=== PATIENT | female | born 1965 | race Caucasian/White ===

== ENCOUNTER 2017-03-08 10:19 | Emergency (ER) | payer BC ==
[~2017-03-08] VITALS: Ht 170.2 cm; Wt 69.0 kg
--- OUTSIDE RECORDS SUMMARY | ~2017-03-08 | XMS | Clinical Summary ---
Demographics + + + | Address | [address] | | | [place] [address] | + + + | Home Phone | | + + + | Preferred Language | Unknown | + + + | Marital Status | | + + + | Sikh Affiliation | Unknown | + + + | Race | White | + + + | Ethnic Group | Not or | + + + Author + + + | Author | [facility] | + + + | Organization | [facility] | + + + | Address | Unknown | + + + | Phone | Unavailable | + + + Support +------+ +---------+ + | Name | Relationship | Address | Phone | +------+ +---------+ + ECON | Unknown | | +------+ +---------+ + Care Team Providers + +------+-------+ | Care Civil Engineer Name | Role | Phone | + +------+-------+ | Ronald Alvarez MD | PP | tel | + +------+-------+ Source Comments BOO is fully live on both [facility] Ambulatory and [facility] InPatient.[facility] Allergies + + + + + + | Active Allergy | Reactions | Severity | Noted | Comments | | | | | Date | | + + + + + + | Triprolidine-Pseudoe | Unknown | | 08/14/19 | | | phedrine | | | 14 | | + + + + + + Current Medications + + +-------+---------+------+------+-------+ | Prescription | Sig. | Disp. | Refills | Star | End | Statu | | | | | | t | Date | s | | | | | | Date | | | + + +-------+---------+------+------+-------+ | LISINOPRIL 10 mg | Take 10 mg by mouth | | | 07/12 | | Activ | | oral tablet | two times daily. | | | 08/30 | | e | | | | | | 14 | | | + + +-------+---------+------+------+-------+ | CARVEDILOL 12.5 mg | Take 12.5 mg by | | | 07/12 | | Activ | | oral tablet | mouth two times | | | 05/02 | | e | | | daily. | | | 14 | | | + + +-------+---------+------+------+-------+ | VITAMIN D2 50,000 | Take by mouth twice | | | 07/11 | | Activ | | unit oral capsule | weekly (on Monday | | | 05/02 | | e | | | and Monday). | | | 14 | | | + + +-------+---------+------+------+-------+ | CYCLOBENZAPRINE 10 | Take 10 mg by mouth | | | 05/ | | Activ | | mg oral tablet | two times daily. | | | 05/02 | | e | | | | | | 14 | | | + + +-------+---------+------+------+-------+ | NORCO 5-325 mg | Take 1 tablet by | | | 06/12 | | Activ | | oral tablet | mouth twice daily as | | | 11/30 | | e | | | needed. | | | 14 | | | + + +-------+---------+------+------+-------+ | aspirin chewable | Take 81 mg by mouth | | | | | Activ | | 81 mg oral | once daily. | | | | | e | | tablet,chewable | | | | | | | + + +-------+---------+------+------+-------+ | cetirizine 10 mg | Take 10 mg by mouth | | | | | Activ | | oral tablet | once daily. | | | | | e | + + +-------+---------+------+------+-------+ | hydrOXYzine | Take 1 capsule by | | | 06/0 | | Activ | | pamoate 50 mg oral | mouth once daily. | | | 3/20 | | e | | capsule | | | | 14 | | | + + +-------+---------+------+------+-------+ | spironolactone 25 | Take 25 mg by mouth | | | | | Activ | | mg oral tablet | once daily. | | | | | e | + + +-------+---------+------+------+-------+ | levonorgestrel | 1 each by | | | | | Activ | | (MIRENA) [...] | | | | | + + +-------+---------+------+------+-------+ Active Problems + + + | Problem | Noted Date | + + + | Adrenal nodule (HCC) | 11/05/2013 | + + + + [...] + +---------+ + | Alcohol Use | Drinks/We | oz/Week | Comments | | | ek | | | + + +---------+ + | Yes | 7 | 3.5 | | | | Standard | | | | | drinks or | | | | | | | | | | equivalen | | | | | t | | | + + +---------+ + + + + | Sex Assigned at | Date Recorded | | | | + + + | Not on file | | + + + Last Filed Vital Signs + + + + | Vital Sign | Reading | Time Taken | + + + + | Blood Pressure | 124/76 | 02/11/2014 2:04 PM PST | + + + + | Pulse | 75 | 02/11/2014 2:04 PM PST | + + + + | Temperature | - | - | + + + + | Respiratory Rate | 12 | 11/05/2013 3:17 PM PDT | + + + + | Oxygen Saturation | - | - | + + + + | Inhaled Oxygen | - | - | | Concentration | | | + + + + | Weight | 72.6 kg (160 lb) | 02/11/2014 2:04 PM PST | + + + + | Height | 170.2 cm (5' 7") | 11/05/2013 3:17 PM PDT | + + + + | Body Mass Index | 25.06 | 02/11/2014 2:04 PM PST | + + + + Plan of Treatment + + + + + | Health Maintenance | Due Date | Last Done | Comments | + + + + + | INFLUENZA VACCINE | | | | | (FLU SHOT) | 7 | | | + + + + + Results Not on filefrom Last 3 Months
--- OUTSIDE RECORDS SUMMARY | ~2017-03-08 | XMS | Clinical Summary ---
Demographics + + + | Address | [address] | | | [place] [address] | + + + | Home Phone | | + + + | Preferred Language | Unknown | + + + | Marital Status | | + + + | Taoist Affiliation | Unknown | + + + | Race | White | + + + | Ethnic Group | Not or | + + + Author + + + | Author | [facility] | + + + | Organization | [facility] | + + + | Address | Unknown | + + + | Phone | Unavailable | + + + Support +------+ +---------+ + | Name | Relationship | Address | Phone | +------+ +---------+ + ECON | Unknown | | +------+ +---------+ + Care Team Providers + +------+-------+ | Care Medical Technicians Name | Role | Phone | + +------+-------+ | Ronald Alvarez MD | PP | tel | + +------+-------+ Source Comments BOO is fully live on both [facility] Ambulatory and [facility] InPatient.[facility] Allergies + + + + [...]
[~2017-03-08 10:19] MED LIST: ASPIRIN EC81 MG PO; CARVEDILOL12.5 MG PO; FLEXERIL10 MG PO; LISINOPRIL10 MG PO; NORCO 5-325 TA1 EACH PO; VISTARIL50 MG PO; VITAMIN D; ZITHROMAX250 MG PO; ZOFRAN ODT4 MG PO; ZOFRAN4 MG PO
== END 2017-03-08 10:34 | disposition home or self-care (01) ==
LOC: ED 10:19
DX: M25.511 Pain in right shoulder (principal)

== ENCOUNTER 2017-07-27 13:44 | Emergency (ER) | payer BC ==
[~2017-07-27] VITALS: Ht 170.2 cm; Wt 69.0 kg
== END 2017-07-27 14:04 | disposition home or self-care (01) ==
LOC: ED 13:44
DX: Z00.8 Encounter for other general examination (principal)

== ENCOUNTER 2019-09-14 09:50 | Emergency (ER) | payer OTHER ==
[~2019-09-14] VITALS: Ht 170.2 cm; Wt 65.3 kg
--- OUTSIDE RECORDS SUMMARY | ~2019-09-14 | XMS | Encounter Summary ---
Demographics + + + | Address | [address] | | | [place] [address] | + + + | Home Phone | | + + + | Preferred Language | Unknown | + + + | Marital Status | | + + + | Yazdanism Affiliation | Unknown | + + + | Race | White | + + + | Ethnic Group | Not or | + + + Author + + + | Author | [facility] | + + + | Organization | [facility] | + + + | Address | Unknown | + + + | Phone | Unavailable | + + + Support + + +---------+ + | Name | Relationship | Address | Phone | + + +---------+ + | Arcadio Jordan | ECON | Unknown | | + + +---------+ + Care Team Providers + +------+ + | Care Coding Compliance Manager Name | Role | Phone | + +------+ + | Ronald Alvarez MD | PCP | | + +------+ + Encounter Details +--------+ + + + + | Date | Type | Department | Care Team | Description | +--------+ + + + + | 09/03/ | Results | [facility] | Carter Campos MD | | | 2013 | Only | [facility] | [address] | | | | | [facility] | [address] [place], | | | | | [address] | [place] [address] | | | | | [address] | [phone] | | | | | Physician's | | | | | | Pavilion, 1st floor | | | | | | [place], [place] | | | | | | [address] | | | | | | [phone] | | | +--------+ + + + + Social History + + + +--------+------+ | Tobacco Use | Types | Packs/Day | Years | Date | | | | | Used | | + + + +--------+------+ | Current Every Day | Cigarettes | 0.5 | | | | Smoker | | | | | + + + +--------+------+ + + +---------+ + | Alcohol Use | Drinks/Week | oz/Week | Comments | + + +---------+ + | Yes | 7 Standard drinks | 5.8 | | | | or equivalent | | | + + +---------+ + + + + | Sex Assigned at | Date Recorded | | | | + + + | Not on file | | + + + + + + + | Job Start Date | Occupation | Industry | + + + + | Not on file | Not on file | Not on file | + + + + + + + + | Travel History | Travel Start | Travel End | + + + + + + | No recent travel history available. | + + documented as of this encounter Plan of Treatment Not on filedocumented as of this encounter Procedures + +--------+ + + + | Procedure Name | Priori | Date/Time | Associated Diagnosis | Comments | | | ty | | | | + +--------+ + + + | CT ABDOMEN WO IV | Routin | 09/03/2013 | | Results for this | | CONTRAST | e | 3:06 PM | | procedure are in the | | | | PDT | | results section. | + +--------+ + + + documented in this encounter Results CT ABDOMEN WO IV CONTRAST (09/03/2013 3:06 PM PDT) + + + + + + | Component | Value | Ref Range | Performed | Pathologist | | | | | At | Signature | + + + + + + | CT ABDOMEN | EXAM: CT of the | | | | | WO CONTRAST | abdomen WITHOUT IV | | | | | | contrast. Coronal and | | | | | | sagittal reformatswere | | | | | | reviewed. HISTORY: | | | | | | Evaluate for adrenal | | | | | | nodules COMPARISON: None | | | | | | available. TECHNIQUE: | | | | | | CT of the abdomen | | | | | | WITHOUT IV contrast. | | | | | | Coronal and | | | | | | sagittalreformats were | | | | | | reviewed. FINDINGS: LACK | | | | | | OF INTRAVENOUS CONTRAST | | | | | | DECREASES SENSITIVITY | | | | | | FOR DETECTION OF | | | | | | VASCULARAND PARENCHYMAL | | | | | | PATHOLOGY. LOWER THORAX: | | | | | | Unremarkable. LIVER: | | | | | | Unremarkable.BILIARY: | | | | | | Unremarkable.SPLEEN: | | | | | | Unremarkable.PANCREAS: | | | | | | Unremarkable. ADRENALS: | | | | | | The left adrenal gland | | | | | | demonstrates a medial | | | | | | limb nodule thatmeasures | | | | | | 1.9 x 1.6 cm and | | | | | | attenuates at minus 10.8 | | | | | | Hounsfield units. The | | | | | | rightadrenal gland is | | | | | | normal in | | | | | | appearance.KIDNEYS/URETE | | | | | | RS: Unremarkable. GI | | | | | | TRACT: Visualized | | | | | | portions are | | | | | | unremarkable.PERITONEUM: | | | | | | No free air or | | | | | | fluid.LYMPH NODES: No | | | | | | lymphadenopathy.VESSELS: | | | | | | Unremarkable. BONES: No | | | | | | suspicious bony | | | | | | lesions. IMPRESSION: The | | | | | | left adrenal gland | | | | | | demonstrates a 1.9 x 1.6 | | | | | | cm medial limb nodule | | | | | | thatattenuates at minus | | | | | | 10 hounsfield units. 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 | | | | | | Morphologically normal | | | | | | right adrenal gland. | | | | | | Attending Radiologists: | | | | | | BENJAMIN MYERS, | | | | | | MDAuthor: BRENNAN SANTAMARIA MD | | | | | | I have personally viewed | | | | | | this procedure/exam, | | | | | | reviewed this report, | | | | | | and madechanges to it | | | | | | where appropriate. | | | | | | Final/Electronically | | | | | | signed / BENJAMIN Lucero | | | | | | [place] 09/03/2013 16:41 | | | | | | PM Pending final | | | | | | approval / BRENNAN SANTAMARIA | | | | | | 09/03/2013 16:10 PM | | | | | | Preliminary / BRENNAN | | | | | | HINA 09/03/2013 15:19 PM | | | | | | | | | | + + + + + + + + | Specimen | + + | | + + + +---------+ + + | Performing | Address | City/State/Zipcode | Phone Number | | Organization | | | | + +---------+ + + | [facility] DEPARTMENT | | | | | RADIOLOGY | | | | + +---------+ + + documented in this encounter Visit Diagnoses Not on filedocumented in this encounter"
--- OUTSIDE RECORDS SUMMARY | ~2019-09-14 | XMS | Encounter Summary ---
Demographics + + + | Address | [address] | | | [place] [address] | + + + | Home Phone | | + + + | Preferred Language | Unknown | + + + | Marital Status | | + + + | Mandaen Affiliation | Unknown | + + + [...] Team Providers + +------+ + | Care Cargo Inspector Name | Role | Phone | + +------+ + | Ronald Alvarez MD | PCP | | + +------+ + Encounter Details +--------+ + + + + | Date | Type | Department | Care Team | Description | +--------+ + + + + | 08/28/ | Document-Sc | UNKNOWN DEPARTMENT | Unknown . | | | 2013 | anned | [address] | | | | | | [address] | | | | | | [place], [place] | | | | | | [address] | | | +--------+ + + + [...] | + +--------+ + + + | OUTSIDE CARDIOLOGY | | 08/28/2013 | | Results for this | | | | 12:00 AM | | procedure are in the | | | | PDT | | results section. | + +--------+ + + + | RADIOLOGY | | 08/28/2013 | | Results for this | | | | 12:00 AM | | procedure are in the | | | | PDT | | results section. | + +--------+ + + + | LAB REPORTS | | 07/10/2013 | | Results for this | | | | 12:00 AM | | procedure are in the | | | | PDT | | results section. | + +--------+ + + + documented in this encounter Results OUTSIDE CARDIOLOGY (08/28/2013 12:00 AM PDT) + + + | Narrative | Performed At | + + + | | | | | | + + + + + | Procedure Note | + + | Chiquita, Faculty - 08/28/2013 3:31 PM PDT | + + RADIOLOGY (08/28/2013 12:00 AM PDT) + + + | Narrative | Performed At | + + + | | | | | | + + + + + | Procedure Note | + + | Yisel Porras - 08/28/2013 3:31 PM PDT | + + LAB REPORTS (07/10/2013 12:00 AM PDT) + + + | Narrative | Performed At | + + + | | | | | | + + + + + | Procedure Note | + + | Yisel Porras - 08/29/2013 8:26 AM PDT | + + documented in this encounter Visit Diagnoses Not on filedocumented in this encounter"
--- OUTSIDE RECORDS SUMMARY | ~2019-09-14 | XMS | Encounter Summary ---
Demographics + + + | Address | [address] | | | [place] [address] | + + + | Home Phone | | + + + | Preferred Language | Unknown | + + + | Marital Status | | + + + | Baptist Affiliation | Unknown | + + + | Race | White | + + + | Ethnic Group | Not or | + + + Author + + + | Author | [facility] | + + + | Organization | [facility] | + + + | Address | Unknown | + + + | Phone | Unavailable | + + + Support + + +---------+ + | Name | Relationship | Address | Phone | + + +---------+ + | Arcadio Jordan | ECON | Unknown | | + + +---------+ + Care Team Providers + +------+ + | Care Inventory Control Manager Name | Role | Phone | + +------+ + | Ronald Alvarez MD | PCP | | + +------+ + Encounter Details +--------+ + + + + | Date | Type | Department | Care Team | Description | +--------+ + + + + | 09/05/ | [facility] | [facility] | Carter Campos MD | RE: Lab draw | | 2013 | Encounter | [facility] | [address] | | | | | [facility] | [address] [place], | | | | | [address] | [place] [address] | | | | | [address] | [phone] | | | | | Physician's | | | | | | Pavilion, 1st floor | | | | | | [place], [place] | | | | | | [address] | | | | | | [phone] | | | +--------+ + + + [...] Not on filedocumented as of this encounter Visit Diagnoses Not on filedocumented in this encounter"
--- OUTSIDE RECORDS SUMMARY | ~2019-09-14 | XMS | Encounter Summary ---
Demographics + + + | Address | [address] | | | [place] [address] | + + + | Home Phone | | + + + | Preferred Language | Unknown | + + + | Marital Status | | + + + | Adventist Affiliation | Unknown | + + + | Race | White | + + + | Ethnic Group | Not or | + + + Author + + + | Author | [facility] | + + + | Organization | [facility] | + + + | Address | Unknown | + + + | Phone | Unavailable | + + + Support + + +---------+ + | Name | Relationship | Address | Phone | + + +---------+ + | Arcadio Jordan | ECON | Unknown | | + + +---------+ + Care Team Providers + +------+ + | Care Smearer Name | Role | Phone | + +------+ + | Ronald Alvarez MD | PCP | | + +------+ + Encounter Details +--------+ + + + + | Date | Type | Department | Care Team | Description | +--------+ + + + + | 08/13/ | [facility] | [facility] | Carter Campos MD | RE: New pt | | 2013 | Encounter | [facility] | [address] | | | | | Center at [facility] | [address] [place], | | | | | [address] | [place] [address] | | | | | [address] | [phone] | | | | | Physician's | | | | | | Pavilion, 1st floor | | | | | | [place], [place] | | | | | | [address] | | | | | | [phone] | | | +--------+ + + + [...]
--- OUTSIDE RECORDS SUMMARY | ~2019-09-14 | XMS | Encounter Summary ---
Demographics + + + | Address | [address] | | | [place] [address] | + + + | Home Phone | | + + + | Preferred Language | Unknown | + + + | Marital Status | | + + + | Rastafari Affiliation | Unknown | + + + | Race | White | + + + | Ethnic Group | Not or | + + + Author + + + | Author | [facility] | + + + | Organization | [facility] | + + + | Address | Unknown | + + + | Phone | Unavailable | + + + Support + + +---------+ + | Name | Relationship | Address | Phone | + + +---------+ + | Arcadio Jordan | ECON | Unknown | | + + +---------+ + Care Team Providers + +------+ + | Care Rn Access Name | Role | Phone | + +------+ + | Ronald Alvarez MD | PCP | | + +------+ + Encounter Details +--------+ + + + + | Date | Type | Department | Care Team | Description | +--------+ + + + + | 10/19/ | [facility]cia | [facility] | Carter Campos MD | RE:labs | | 2013 | Encounter | [facility] | [address] | | | | | Center at [facility] | [address] [place], | | | | | [address] | [place] [address] | | | | | [address] | [phone] | | | | | Physician's | | | | | | Pavilion, 1st floor | | | | | | [place], [place] | | | | | | [address] | | | | | | [phone] | | | +--------+ + + + [...]
--- OUTSIDE RECORDS SUMMARY | ~2019-09-14 | XMS | Encounter Summary ---
Demographics + + + | Address | [address] | | | [place] [address] | + + + | Home Phone | | + + + | Preferred Language | Unknown | + + + | Marital Status | | + + + | Congregation Affiliation | Unknown | + + + | Race | White | + + + | Ethnic Group | Not or | + + + Author + + + | Author | [facility] | + + + | Organization | [facility] | + + + | Address | Unknown | + + + | Phone | Unavailable | + + + Support + + +---------+ + | Name | Relationship | Address | Phone | + + +---------+ + | Arcadio Jordan | ECON | Unknown | | + + +---------+ + Care Team Providers + +------+ + | Care Lead Furnace Operator Name | Role | Phone | + +------+ + | Ronald Alvarez MD | PCP | | + +------+ + Reason for Visit + + + | Reason | Comments | + + + | Hypokalemia | | + + + | New patient | | | consultation | | + + + Intake Referral (Urgent) +--------+--------+ + + + + | Status | Reason | Specialty | Diagnoses / | Referred By | Referred To | | | | | Procedures | Contact | Contact | +--------+--------+ + + + + | Closed | | Endocrinology | Diagnoses | Sitz, | 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 | MD Trevor | [address] | | | | | | [place] | [address] | | | | | | INTERNAL | Physician's | | | | | | MEDICINE | Pavilion, | | | | | | [address] | 1st floor | | | | | | [address] | [place], [place] | | | | | | [address] | [address] | | | | | | [place], | Phone: | | | | | | [place] [address] | [phone] | | | | | | Phone: | Fax: | | | | | | [phone] | [phone] | | | | | | Fax: | | | | | | | [phone] | | +--------+--------+ + + + + Encounter Details +--------+---------+ + + + | Date | Type | Department | Care Team | Description | +--------+---------+ + + + | 08/13/ | Office | Souleymane Goldman | Andres, Carter, MD | Hypokalemia (Primary | | 2014 | Visit | [facility] | [address] | Dx) | | | | [facility] | [address] [place], | | | | | [address] | [place] [address] | | | | | [address] | [phone] | | | | | Physician's | | | | | | Pavilion, 1st floor | | | | | | [place], [place] | | | | | | [address] | | | | | | [phone] | | | +--------+---------+ + + + Social History + + + +--------+------+ | Tobacco Use | Types | Packs/Day | Years | Date | | | | | Used | | + + + +--------+------+ | Current Every Day | Cigarettes | 0.5 | | | | Smoker | | | | | + + + +--------+------+ + + | Tobacco Cessation: Ready to Quit: No; Counseling Given: Yes | + + + + +---------+ + | Alcohol Use [...] + + documented as of this encounter Last Filed Vital Signs + + + + + | Vital Sign | Reading | Time Taken | Comments | + + + + + | Blood Pressure | 118/76 | 08/13/2013 10:46 AM | | | | | PDT | | + + + + + | Pulse | 70 | 08/13/2013 10:46 AM | | | | | PDT | | + + + + + | Temperature | - | - | | + + + + + | Respiratory Rate | 12 | 08/13/2013 10:46 AM | | | | | PDT | | + + + + + | Oxygen Saturation | - | - | | + + + + + | Inhaled Oxygen | - | - | | | Concentration | | | | + + + + + | Weight | 72.7 kg (160 lb 3.2 | 08/13/2013 10:46 AM | | | | oz) | PDT | | + + + + + | Height | 170.2 cm (5' 7") | 08/13/2013 10:46 AM | | | | | PDT | | + + + + + | Body Mass Index | 25.09 | 08/13/2013 10:46 AM | | | | | PDT | | + + + + + documented in this encounter Patient Instructions Patient Instructions Carter Campos MD - 08/13/2013 10:22 AM PDTGetting ready to quit? Here's how to get started. o Most smokers know that quitting improves your health. But did you know that when you ana t, you will likely: Reduce your chances of getting sick from smoking. Have more energy and breathe easier Heal more easily from surgery, injuries, and infections. Reduce your chance of a heart attack, stroke, or cancer. Reduce your chances of a second heart attack (if you've already had one). Give your baby a healthier start in life if you are . Help the people (and pets!) you live with be healthier. Breathing in smoke can cause a sthma and other health problems, especially in children. Have more money to spend. Stop the hassles about finding a place to smoke and worrying about running out of cigare ttes. o Most smokers have seriously tried to quit, usually more than once. But, when you cut back or stop smoking, withdrawal symptoms from nicotine can make you feel not your normal jana f. Quitters can feel anxious, restless, sad or depressed, frustrated, or even angry. With drawal can make you hungrier and make it harder to sleep and think clearly. Most withdrawal symptoms go away after 3-6 weeks, although cravings can last longer. o For some smokers, quitting means first figuring out why you want to quit and then finding the best ways to overcome withdrawal. Others may just decide to quit right now and want to know what to do. The experts recommend the [place] to Quitting. o Call the [place] Tobacco Quitline at: 2-110-QUIT NOW or visit the website www.hotelsmap.com.org. A Quitline specialist will talk to you and help you decide the best way to quit. Th e Quitline may also be able to send you FREE medications. o For help online: Centers for Disease Control website at www.cdc.gov/tobacco or [facility] website for live on-line assistance for smokers at www.smokefree.gov [place] to Quitting These four keys can help withdrawal and help you successfully quit. 1. Set a specific date to quit. 2. Take the stop smoking medication your doctor recommends. 3. Get help and support from friends, family, and your health professional. 4. Learn how to stay quit. [place] to Quitting Malik 1: SET A QUIT DATE Choose a day that works for you. What's better: Monday morning? Monday morning? Sp ecial days like annivers or birth? Maybe today is the day! Consider giving yourself a few days to a couple of weeks to get ready. Try changing bran ds and cutting back. If you still smoke in your car or house, think about only smoking outsi de until your quit day. Be prepared for your quit day: o Be determined to succeed & stay busy! o Plan to spend time with non-smokers. o Collect a few things to have with you to help with urges. Quitters have tried sugarless g um and mints, red hot candy, water bottle, carrot sticks, a list of the reasons for quitting , pictures of family members and pets. Choose (or invent!) what you think will help. The day before your quit day, get rid of all your cigarettes, lighters and ashtrays. Jayesh an your car and your home to help get ready. Malik 2: TAKE A MEDICATION o Take the medication your doctor recommends. Stop smoking medications can double or tripl e your chances of success. o Medications can help you with physical, nicotine withdrawal symptoms so you can feel more like your normal self while learning not to smoke. IMPORTANT: Be sure to use enough medication and use it as long as recommended. People who smoke a lot sometimes use two medications together. But, some quitters stop using the medica tion as soon as they feel better. This can be too soon! Your doctor can help you decide. Malik 3: GET HELP AND SUPPORT o Studies show that getting support helps increase your chances of quitting. o Ask your friends and family for help, but be specific. Know that some people may be helpf ul and others may not. You want to make quitting easier, not more stressful! o Find other quitters who can help. Try joining a class, getting individual coaching, or ch ecking out internet quit sites. o Call the [place] Tobacco Quitline at 6-452-Quit Now. Malik 4: LEARN HOW TO STAY QUIT o Always take it one day at a time. o Try avoiding smokers and smoking areas for the first weeks. Seeing and smelling smoke can be a big trigger and cause you to start up again. o Stick with it even if you slip up. o Remind yourself (even if you don't feel that way) that you will feel better and quitting will get easier. o Help stay motivated by rewarding yourself. Commonly Asked Questions Why do I get really uncomfortable when I try to quit? These are normal feelings. Nicotine is a drug in tobacco that affects your mind and body by causing chemical changes in your brain. Most smokers know that smoking (nicotine) can hel p you feel relaxed and calm and also keep you alert and help you concentrate. It can also re duce your appetite and delay eating. Your body gets used to having lots of nicotine over yea rs of smoking. When you suddenly cut way down or stop, your body reacts. Withdrawal starts within a couple of hours after your last cigarette. What can I expect from withdrawal? When smokers quit they often feel irritated, anxious, tired, sad or down or have a hard ti me thinking clearly. Many can't sleep as well, feel hungrier, and many gain some weight. No wonder it is hard to quit! Is there a way to quit without withdrawal? Most smokers have withdrawal when they stop. Medications help, but there isn't a painless way to quit. Some smokers have said: You just have to make up your mind to stop, or Just get past the physical craving and you'll be alright, or Don't beat yourself up i f quitting is harder for you than for your friends And, all are right! It can be hard to keep your mental attitude positive about quitting when you are feeling withdrawal. Following the [place] to Quitting can help smokers make withdrawal easier and be successf ul. I am trying to get away from nicotine! Why would I use nicotine patches, gum, or the lozen ge? This is a common question. Nicotine is an addictive drug. But it isn't nicotine that cause s cancer and the other serious diseases. It is all the other chemicals in tobacco and in the smoke that cause so much harm. When you follow a program with the patch, gum, or lozenge y ou gradually decrease the amount of nicotine you are getting. Your body has more time to adj ust and you get rid of all of the other chemicals from the tobacco and the smoke that cause harm. You can also try non-nicotine medications for quitting including bupropion (Zyban/Well butrin) or varenicline (Chantix). Can I really quit? YES! Quitting takes commitment and patience> it also takes staying with it even if it is hard to do. Think of past quit attempts as practice, not failures. Forty years ago more than 42% of Americans smoked. Now there are more ex-smokers than smokers. You can quit if you ar e willing to stick with it! Developed by: [facility] Smoking [facility]essation [facility] [email or web address]/smokingcessation 11/14/06 documented in this encounter Progress Notes Carter Campos MD - 08/13/2013 11:59 AM PDTI saw and evaluated the patient. I agree with the findings and plan of care as documented in the residents/fellows note. Carter Campos MD Endocrinology, Diabetes and Clinical Nutrition [address] [facility] [address] Darshan Schaefer MD - 08/13 9:49 AM PDT Endocrine Clinic New Consult Referring Provider: Ronald Alvarez MD [facility] [address] [address] Reason for Visit: new patient eval for episodes of weakness Subjective: patient describes episodes that started About 11 years ago, was starting to hav e weakness and trouble breathing. Multiple trips to ER. Eventually had echo with 12% EF in dicating Left heart failure (idiopathic) in . EF now good with meds. However, episod es still continue. Has these episodes about 5 times per year. Had one in January. But recently had one last week. Cramping, weakness, SOB, decreased exercise tolerance, diffuse body pains, nausea, g ets flushing. No hypertension. Maybe some symptoms of light headedness. Trouble with leg strength, cannot walk up a flight of stairs. Can see leg cramps. Taking daily norco and da guero flexeril. Episodes last for a number of days and peak in the middle. When going to ER, potassium is sometimes low sometimes normal, sometimes Mg is low too. Gets better when get s IV fluids with potassium in it. During these episodes has to sleep 10-12 hours. Thinks h eat might be trigger as well as stress. Attacks have been worse in the last 6-7 years. Thi s episode has salt craving with it. Has taken potassium supplements in the past, but then K started getting high so she stopped. At baseline, she is in good health. Daily chest pain but uses norco daily. Otherwise acti ve, and walks 2-3 miles per day. Stress, [place] Sleeps 5 hours a night. Has a d aughter. Schizophrenic brother. 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 ROS: In addition to above, positive for: nasal congestion Remainder of 13 point ROS has been reviewed and scanned into chart Other PMH: Past Medical History Diagnosis Date Heart failure 2007 idiopathic Family History Problem Relation MS Mother Cancer Grandmother History Social History Marital Status: Spouse Name: N/A Number of Children: N/A Years of Education: N/A Occupational History Not on file. Social History Main Topics Smoking status: Current Every Day Smoker -- 0.50 packs/day Types: Cigarettes Smokeless tobacco: Not on file Alcohol Use: 3.5 oz/week 7 drink(s) per week Drug Use: No Sexually Active: Not on file Other Topics Concern Not on file Social History Narrative No narrative on file aspirin chewable 81 mg oral tablet,chewable, Take 81 mg by mouth once daily. CARVEDILOL 12.5 mg oral tablet, Take 12.5 mg by mouth two times daily. cetirizine 10 mg oral tablet, Take 10 mg by mouth once daily. CYCLOBENZAPRINE 10 mg oral tablet, Take 10 mg by mouth two times daily. hydrOXYzine pamoate 50 mg oral capsule, Take 50 mg by mouth every four hours as needed. LISINOPRIL 10 mg oral tablet, Take 10 mg by mouth two times daily. NORCO 5-325 mg oral tablet, Take 1 tablet by mouth twice daily as needed. SPIRONOLACTONE 25 mg oral tablet, Take 25 mg by mouth once daily. VITAMIN D2 50,000 unit oral capsule, Take by mouth twice weekly (on Monday and Monday). Allergies Allergen Reactions Actifed (Triprolidine-Pseudoephedrine) Unknown Physical Exam: Filed Vitals 08/13/2013 11:55 AM Height: 1.702 m (5' 7") Weight: 72.666 kg (160 lb 3.2 oz) BP: 118/76 Pulse: 70 Resp: 12 BMI: 25.08 kg/(m^2) General Appearance: NAD Eyes: EOMI, no exophthalmos, no lid lag Thyroid: symmetric, non-tender, normal in size, no palpable nodules Cardiovascular: RRR, normal S1 & S2, no m/r/g Respiratory: cta B/L, no w/r/r Abdominal: soft, NT, normal BS, no organomegaly Extremities: no edema Skin: no rashes on exposed skin Neurologic: no tremor, patellar and ankle reflexes normal, strength 5-/5 in LE b/l Psych: pleasant and intelligent Data: Outside labs reviewed and scanned into chart. Normal K, normal Mg. Normal 24hr urinary co rtisol. No aldosterone, no thyroid labs. Assessment: unknown symptoms of weakness episodes that are periodic a few times per year. The episodes got a little better when heart failure was treated, but still persist. Sometimes associate d with electrolyte abnormalities. Occasionally with low K or Mg, and sometimes better with K replacement. Could be inappropriate bodily handling of K. Will check renal K handling wi th serum and urine values. Also consider hypophosphatemia. Her adrenal glands have not bee n fully evaluated. It is possible that hyperaldosteronism could link the hypokalemia and he art failure. However, never had HTN (although on anti-HTN meds for heart failure). She is currently on spironolactone, so will have to interpret labs carefully in that regard. Plan: -labs today: PTH, TSH, D, phos, Mg, CMP, TTKG, renin, jeremy -based on results, will consider retesting while holding lauren for 6 weeks -based on results, will consider adrenal imaging -tobacco cessation counseling Darshan Silva MD Endocrinology Fellow, pgr [phone] This patient has been staffed with Dr. Campos who agrees with above assessment and plan. documented in this encou nter Plan of Treatment Not on filedocumented as of this encounter Results ALDOSTERONE, SERUM (08/13/2013 10:48 AM PDT) + + + + + + | Component | Value | Ref Range | Performed | Pathologist | | | | | At | Signature | + + + + + + | ALDOSTERONE | 40.0Comment: | ng/dL | [facility] | | | SERUM | INTERPRETIVE | | REG UNIV | | | | INFORMATION: | | PTH - [facility] | | | | Aldosterone, Serum | | | | | | Reference intervals for | | | | | | age 15 and older: | | | | | | Upright ......... 4.0 | | | | | | - 31.0 ng/dL Supine | | | | | | .......... Less than | | | | | | or equal to 16.0 ng/dL | | | | | | Unspecified ..... Less | | | | | | than or equal to 31.0 | | | | | | ng/dL Normal serum | | | | | | levels of aldosterone | | | | | | are dependent on | | | | | | thesodium intake and | | | | | | whether the patient is | | | | | | upright or supine.High | | | | | | sodium intake will tend | | | | | | to suppress serum | | | | | | aldosterone,whereas low | | | | | | sodium intake will | | | | | | elevate serum | | | | | | aldosterone.The | | | | | | reference intervals for | | | | | | serum aldosterone are | | | | | | based onnormal sodium | | | | | | intake. Access complete | | | | | | set of age- and/or | | | | | | gender-specificreference | | | | | | intervals for this test | | | | | | in the [facility] | | | | | | LaboratoryTest Directory | | | | | | ([email or web address]).Performed | | | | | | by [facility] | | | | | | [facility],[address] [facility] | | | | | | [place], [facility] [place] [address] | | | | | | [phone]. | | | | | | Fei sotelo, | | | | | | , Lab. Director | | | | + + + + + + + + | Specimen | + + | Blood - Blood | + + + + + + + | Performing | Address | City/State/Zipcode | Phone Number | | Organization | | | | + + + + + | [facility] | [address] | [place], [place] | | | UNIV P[facility] | | [address] | | + + + + + RENIN, PLASMA (08/13/2013 10:48 AM PDT) + + + + + + | Component | Value | Ref Range | Performed | Pathologist | | | | | At | Signature | + + + + + + | RENIN | 60.0Comment: Specimen | ng/mL/hr | [facility] | | | PLASMA | diluted and results | | REG UNIV | | | | confirmed.INTERPRETIVE | | PTH - [facility] | | | | INFORMATION: Renin | | | | | | Activity Adult, Normal | | | | | | sodium diet: Supine | | | | | | ................. | | | | | | 0.2-1.6 ng/mL/hr | | | | | | Upright | | | | | | ................ 0.5-4.0 | | | | | | ng/mL/hr Children, | | | | | | Normal sodium diet, | | | | | | Supine: [place] (1-7 | | | | | | days) ..... 2.0-35.0 | | | | | | ng/mL/hr Cord blood | | | | | | ............. 4.0-32.0 | | | | | | ng/mL/hr 1-12 mos | | | | | | ............... 2.4-37.0 | | | | | | ng/mL/hr 13 mos-3 yrs | | | | | | ........... 1.7-11.2 | | | | | | ng/mL/hr 4-5 yrs | | | | | | ................ 1.0- | | | | | | 6.5 ng/mL/hr 6-10 yrs | | | | | | ............... 0.5- 5.9 | | | | | | ng/mL/hr 11-15 yrs | | | | | | .............. 0.5- 3.3 | | | | | | ng/mL/hr Children, | | | | | | normal sodium diet, | | | | | | Upright: 0-3 yrs | | | | | | ................ Not | | | | | | Available 4-5 yrs | | | | | | ................ Less | | | | | | than or equal to 15 | | | | | | ng/mL/hr 6-10 yrs | | | | | | ............... Less | | | | | | than or equal to 17 | | | | | | ng/mL/hr 11-15 yrs | | | | | | .............. Less than | | | | | | or equal to 16 ng/mL/hr | | | | | | Plasma renin activity | | | | | | measures enzyme ability | | | | | | to | | | | | | convertangiotensinogen | | | | | | to angiotensin I and is | | | | | | limited by | | | | | | theavailability of | | | | | | angiotensinogen. Plasma | | | | | | renin activity isnot an | | | | | | accurate indicator of | | | | | | enzyme activity | | | | | | whenangiotensinogen is | | | | | | decreased.Performed by | | | | | | [facility],[address] | | | | | | [address], [facility] [place] | | | | | | [address] | | | | | | [phone]. | | | | | | Fei sotelo, | | | | | | , Lab. Director | | | | + + + + + + + + | Specimen | + + | Blood - Blood | + + + + + + + | Performing | Address | City/State/Zipcode | Phone Number | | Organization | | | | + + + + + | [facility] | [address] | [place], [place] | | | UN[facility] | | [address] | | + + + + + POTASSIUM TOTAL, URINE (08/13/2013 10:48 AM PDT) + +--------+ + + + | Component | Value | Ref Range | Performed | Pathologist | | | | | At | Signature | + +--------+ + + + | POTASSIUM | 33 | mmol/L | [facility] | | | CONC UR | | | LABORATORY | | | | | | SERVICES, | | | | | | CORE | | + +--------+ + + + | URINE | Random | | [facility] | | | INTERVAL | | | LABORATORY | | | | | | SERVICES, | | | | | | CORE | | + +--------+ + + + | URINE | Spot | | [facility] | | | VOLUME | | | LABORATORY | | | | | | SERVICES, | | | | | | CORE | | + +--------+ + + + + + | Specimen | + + | Urine - Urine | + + + + + | Narrative | Performed At | + + + | Normal values based on 24 hour collection interval. Patient | [facility] | | results are calculated from actual collection interval and volume. | LABORATORY | | | [facility] | + + + + + + + + | Performing | Address | City/State/Zipcode | Phone Number | | Organization | | | | + + + + + | [facility] | [address] | [place] [address] | | | SERVICES, PAT[place] | [address] | | | + + + + + OSMOLALITY, URINE SPOT (08/13/2013 10:48 AM PDT) + +-------+ + + + | Component | Value | Ref Range | Performed | Pathologist | | | | | At | Signature | + +-------+ + + + | OSMOLALITY | 286 | mOsm/Kg H2O | [facility] | | | URINE | | | LABORATORY | | | | | | SERVICES, | | | | | | CORE | | + +-------+ + + + + + | Specimen | + + | Urine - Urine | + + + + + | Narrative | Performed At | + + + | Reference Ranges: Random Urine: | [facility] | | 50-1200 mOm/kg H20 24 Hr., average fluid intake: 300-900 | LABORATORY | | mOm/kg H20 After 12 Hr. fluid restriction: >850 mOm/kg H20 | [facility] | + + + + + + + + | Performing | Address | City/State/Zipcode | Phone Number | | Organization | | | | + + + + + | [facility] | [address] | [place] [address] | | | [facility] [place] | [address] | | | + + + + + OSMOLALITY, PLASMA (08/13/2013 10:48 AM PDT) + +-------+ + + + | Component | Value | Ref Range | Performed | Pathologist | | | | | At | Signature | + +-------+ + + + | OSMOLALITY, | 286 | 275 - 295 | [facility] | | | MEASURED | | mOsm/kg H2O | LABORATORY | | | | | | SERVICES, | | | | | | CORE | | + +-------+ + + + + + | Specimen | + + | Blood - Blood | + + + + + + + | Performing | Address | City/State/Zipcode | Phone Number | | Organization | | | | + + + + + | [facility] | [address] | [place] [address] | | | SERVICES, CORE | [address] | | | + + + + + COMPLETE METABOLIC SET (NA,K,CL,CO2,BUN,CREAT,GLUC,CA,AST,ALT,BILI TOTAL,ALK PHOS,ALB,PROT TOTAL) (08/13/2013 10:48 AM PDT) + + + + + + | Component | Value | Ref Range | Performed | Pathologist | | | | | At | Signature | + + + + + + | GLUCOSE, | 91 | 60 - 99 mg/dL | [facility] | | | PLASMA | | | LABORATORY | | | (LAB) | | | SERVICES, | | | | | | CORE | | + + + + + + | BUN, PLASMA | 15 | 6 - 20 mg/dL | [facility] | | | (LAB) | | | LABORATORY | | | | | | SERVICES, | | | | | | CORE | | + + + + + + | CREATININE | 0.59 (L) | 0.60 - 1.10 | [facility] | | | PLASMA | | mg/dL | LABORATORY | | | (LAB) | | | SERVICES, | | | | | | CORE | | + + + + + + | EGFR | >60 | >60 mL/min | [facility] | | | - | | | LABORATORY | | | [place] | | | SERVICES, | | | | | | CORE | | + + + + + + | EGFR NON | >60 | >60 mL/min | [facility] | | | -[place] | | | LABORATORY | | | [place] | | | SERVICES, | | | | | | CORE | | + + + + + + | SODIUM, | 136 | 136 - 145 | [facility] | | | PLASMA | | mmol/L | LABORATORY | | | (LAB) | | | SERVICES, | | | | | | CORE | | + + + + + + | POTASSIUM, | 4.1 | 3.4 - 5.0 | [facility] | | | PLASMA | | mmol/L | LABORATORY | | | (LAB) | | | SERVICES, | | | | | | CORE | | + + + + + + | CHLORIDE, | 104 | 97 - 108 mmol/L | [facility] | | | PLASMA | | | LABORATORY | | | (LAB) | | | SERVICES, | | | | | | CORE | | + + + + + + | TOTAL CO2, | 22 | 21 - 32 mmol/L | [facility] | | | PLASMA | | | LABORATORY | | | (LAB) | | | SERVICES, | | | | | | CORE | | + + + + + + | CALCIUM, | 9.4 | 8.6 - 10.2 | [facility] | | | PLASMA | | mg/dL | LABORATORY | | | (LAB) | | | SERVICES, | | | | | | CORE | | + + + + + + | BILIRUBIN | 0.5 | 0.3 - 1.2 mg/dL | [facility] | | | TOTAL | | | LABORATORY | | | | | | SERVICES, | | | | | | CORE | | + + + + + + | TOTAL | 7.7 | 6.4 - 8.2 g/dL | [facility] | | | PROTEIN, | | | LABORATORY | | | PLASMA | | | SERVICES, | | | (LAB) | | | CORE | | + + + + + + | ALBUMIN, | 4.0 | 3.5 - 4.7 g/dL | [facility] | | | PLASMA | | | LABORATORY | | | (LAB) | | | SERVICES, | | | | | | CORE | | + + + + + + | ALK PHOS | 57 | 42 - 98 U/L | [facility] | | | | | | LABORATORY | | | | | | SERVICES, | | | | | | CORE | | + + + + + + | AST(SGOT) | 16 | 15 - 41 U/L | [facility] | | | | | | LABORATORY | | | | | | SERVICES, | | | | | | CORE | | + + + + + + | ALT (SGPT) | 27 | 12 - 60 U/L | [facility] | | | | | | LABORATORY | | | | | | SERVICES, | | | | | | CORE | | + + + + + + | ANION | 10 | 4 - 11 mmol/L | [facility] | | | GAP(ALB | | | LABORATORY | | | CORRECTED) | | | SERVICES, | | | | | | CORE | | + + + + + + | POTASSIUM | No Hemo | | [facility] | | | CMNT | | | LABORATORY | | | | | | SERVICES, | | | | | | CORE | | + + + + + + | BILI T CMNT | No Hemo | | [facility] | | | | | | LABORATORY | | | | | | SERVICES, | | | | | | CORE | | + + + + + + | AST CMNT | No Hemo | | [facility] | | | | | | LABORATORY | | | | | | SERVICES, | | | | | | CORE | | + + + + + + | ANION GAP | 10 | mmol/L | [facility] | | | | | | LABORATORY | | | | | | SERVICES, | | | | | | CORE | | + + + + + + + + | Specimen | + + | Blood | + + + + + | Narrative | Performed At | + + + | GFR is estimated using the MDRD equation recommended by the | [facility] | | National Kidney Disease Education Program. Estimated GFR | LABORATORY | | Interpretive Information: <60 mL/min/1.73 sq m | ANGI, CORE | | Chronic Kidney Disease <15 mL/min/1.73 sq m | | | Kidney Failure Estimated GFR greater that 60 mL/min/1.73 sq m is of | | | limited clinical value. The MDRD equation is not valid in the | | | following situations: - Patients under 18 years of age - Severe | | | malnutrition or obesity - Vegetarian diet - Rapidly changing kidney | | | function | | + + + + + + + + | Performing | Address | City/State/Zipcode | Phone Number | | Organization | | | | + + + + + | [facility] | [address] | [place] [address] | | | SERVICES, CORE | [address] | | | + + + + + MAGNESIUM, PLASMA (08/13/2013 10:48 AM PDT) + +---------+ + + + | Component | Value | Ref Range | Performed | Pathologist | | | | | At | Signature | + +---------+ + + + | MAGNESIUM,P | 1.7 (L) | 1.8 - 2.5 mg/dL | [facility] | | | LASMA | | | LABORATORY | | | | | | SERVICES, | | | | | | CORE | | + +---------+ + + + + + | Specimen | + + | Blood | + + + + + + + | Performing | Address | City/State/Zipcode | Phone Number | | Organization | | | | + + + + + | [facility] | [address] | [place] [address] | | | SERVICES, CORE | [address] | | | + + + + + PHOSPHORUS, PLASMA (08/13/2013 10:48 AM PDT) + +-------+ + + + | Component | Value | Ref Range | Performed | Pathologist | | | | | At | Signature | + +-------+ + + + | PHOSPHORUS, | 3.7 | 2.4 - 4.7 mg/dL | [facility] | | | PLASMA | | | LABORATORY | | | (LAB) | | | SERVICES, | | | | | | CORE | | + +-------+ + + + + + | Specimen | + + | Blood | + + + + + + + | Performing | Address | City/State/Zipcode | Phone Number | | Organization | | | | + + + + + | [facility] | [address] | [place] [address] | | | SERVICES, CORE | [address] | | | + + + + + VITAMIN D, 25-HYDROXY, SERUM (08/13/2013 10:48 AM PDT) + +-------+ + + + | Component | Value | Ref Range | Performed | Pathologist | | | | | At | Signature | + +-------+ + + + | VITAMIN D | 46.8 | 30 - 80 ng/mL | [facility] | | | 25 HYDROXY | | | LABORATORY | | | | | | SERVICES, | | | | | | SPECIAL IMM | | | | | | + COAG | | + +-------+ + + + + + | Specimen | + + | Blood | + + + + + | Narrative | Performed At | + + + | REFERENCE INTERVAL: Vitamin D, 25-Hydroxy 0-17years: | [facility] | | Deficiency: less than 20 ng/mL Optimum level: | LABORATORY | | greater than or equal to 20 ng/mL* | SERVICES, | | *(Davis CL et al. Pediatrics 2008; 122:1128-38.) 18 | SPECIAL IMM + | | years and older: Deficiency: less than 20 | COAG | | ng/mL Insufficiency: 20-29 ng/mL | | | Optimum Level: 30-80 ng/mL High: | | | 81-150 ng/ml Toxic: Greater than | | | 150 ng/mL This assay accurately quantifies the sum of Vitamin D3 | | | 25-hydroxy and Vitamin D2, 25-hydroxy. Reference range | | | change effective 10/04/2012. | | + + + + + + + + | Performing | Address | City/State/Zipcode | Phone Number | | Organization | | | | + + + + + | [facility] | [address] | [place] [address] | | | SERVICES, SPECIAL | [address] | | | | IMM + COAG | | | | + + + + + TSH (08/13/2013 10:48 AM PDT) + +-------+ + + + | Component | Value | Ref Range | Performed | Pathologist | | | | | At | Signature | + +-------+ + + + | TSH | 2.36 | 0.44 - 4.75 | [facility] | | | | | mIU/L | LABORATORY | | | | | | SERVICES, | | | | | | CORE | | + +-------+ + + + + + | Specimen | + + | Blood | + + + + + | Narrative | Performed At | + + + | TSH reference ranges are influenced by a variety of environmental | [facility] | | influences, age, gender and ethnicity. The supplied reference limits | LABORATORY | | are based on published values utilizing a similar TSH assay, and | ANGI, PATRIC | | should be interpreted with caution. | | + + + + + + + + | Performing | Address | City/State/Zipcode | Phone Number | | Organization | | | | + + + + + | [facility] | [address] | [place] [address] | | | PATRIC WH[place]LEY | [address] | | | + + + + + PTH, SERUM (08/13/2013 10:48 AM PDT) + +-------+ + + + | Component | Value | Ref Range | Performed | Pathologist | | | | | At | Signature | + +-------+ + + + | PTH, SERUM | 9 (L) | 15 - 75 pg/mL | [facility] | | | | | [facility] | | | | | | [place] | | + +-------+ + + + + + | Specimen | + + | Blood | + + + + + + + | Performing | Address | City/State/Zipcode | Phone Number | | Organization | | | | + + + + + | [facility] | [address] | [place] [address] | | | [place] | | | | + + + + + documented in this encounter Visit Diagnoses + + | Diagnosis | + + | Hypokalemia - Primary Hypopotassemia | + + documented in this encounter
--- OUTSIDE RECORDS SUMMARY | ~2019-09-14 | XMS | Encounter Summary ---
Demographics + + + | Address | [address] | | | [place] [address] | + + + | Home Phone | | + + + | Preferred Language | Unknown | + + + | Marital Status | | + + + | Buddhism Affiliation | Unknown | + + + | Race | White | + + + | Ethnic Group | Not or | + + + Author + + + | Author | [facility] | + + + | Organization | [facility] | + + + | Address | Unknown | + + + | Phone | Unavailable | + + + Support + + +---------+ + | Name | Relationship | Address | Phone | + + +---------+ + | Arcadio Jordan | ECON | Unknown | | + + +---------+ + Care Team Providers + +------+ + | Care Leather Goods I Assembler Name | Role | Phone | + +------+ + | Ronald Alvarez MD | PCP | | + +------+ + Reason for Referral Consultation (Routine) +--------+--------+ + + + + | Status | Reason | Specialty | Diagnoses / | Referred By | Referred To | | | | | Procedures | Contact | Contact | +--------+--------+ + + + + | Closed | | Neurology | Diagnoses | Andres, | Peggy General | | | | | Leg | MD Carter | [address] | | | | | weakness | [address] | [place]i [place] | | | | | Procedures | [facility] | Mailcode: | | | | | CONSULT TO | Rd | [address] | | | | | NEUROLOGY | [place], [place] | for Health | | | | | | [address] | and Healing, | | | | | | Phone: | [facility], | | | | | | [phone] | 8th Floor | | | | | | Fax: | [place], [place] | | | | | | [phone] | [address] | | | | | | | Phone: | | | | | | | [phone] | | | | | | | Fax: | | | | | | | [phone] | +--------+--------+ + + + + Encounter Details +--------+ + + + + | Date | Type | Department | Care Team | Description | +--------+ + + + + | 01/09/ | [facility] | Souleymane Goldman | Carter Campos MD | RE: next step | | 2013 | Encounter | [facility] | [address] | | | | | [facility] | [address] [place], | | | | | [address] | [place] [address] | | | | | [address] | [phone] | | | | | Physician's | | | | | | Pavilion, 1st floor | | | | | | [place], [place] | | | | | | [address] | | | | | | [phone] | | | +--------+ + + + [...] as of this encounter Plan of Treatment + +------+--------+ + + | Name | Type | Priori | Associated Diagnoses | Order Schedule | | | | ty | | | + +------+--------+ + + | METANEPHRINES, URINE | Lab | Routin | Adrenal nodule | Ordered: 01/09/2014 | | | | e | (HCC) | | + +------+--------+ + + documented as of this encounter Visit Diagnoses + + | Diagnosis | + + | Adrenal nodule (HCC) - Primary Other specified disorders of adrenal glands | + + | Leg weakness Other musculoskeletal symptoms referable to limbs | + + documented in this encounter"
--- OUTSIDE RECORDS SUMMARY | ~2019-09-14 | XMS | Encounter Summary ---
Demographics + + + | Address | [address] | | | [place] [address] | + + + | Home Phone | | + + + | Preferred Language | Unknown | + + + | Marital Status | | + + + | Mu-Ism Affiliation | Unknown | + + + | Race | White | + + + | Ethnic Group | Not or | + + + Author + + + | Author | [facility] | + + + | Organization | [facility] | + + + | Address | Unknown | + + + | Phone | Unavailable | + + + Support + + +---------+ + | Name | Relationship | Address | Phone | + + +---------+ + | Arcadio Jordan | ECON | Unknown | | + + +---------+ + Care Team Providers + +------+ + | Care Metalsmith Name | Role | Phone | + +------+ + | Ronald Alvarez MD | PCP | | + +------+ + Encounter Details +--------+ + + + + | Date | Type | Department | Care Team | Description | +--------+ + + + + | 02/18/ | [facility] | Souleymane Goldman | Carter Campos MD | RE: Thank you the | | 2013 | Encounter | [facility] | [address] | referral | | | | [facility] | [address] [place], | | | | | [address] | [place] [address] | | | | | [address] | [phone] | | | | | Physician's | | | | | | Pavilion, 1st floor | | | | | | [place], [place] | | | | | | [address] | | | | | | [phone] | | | +--------+ + + + [...]
--- OUTSIDE RECORDS SUMMARY | ~2019-09-14 | XMS | Encounter Summary ---
Demographics + + + | Address | [address] | | | [place] [address] | + + + | Home Phone | | + + + | Preferred Language | Unknown | + + + | Marital Status | | + + + | Anabaptist Affiliation | Unknown | + + + | Race | White | + + + | Ethnic Group | Not or | + + + Author + + + | Author | [facility] | + + + | Organization | [facility] | + + + | Address | Unknown | + + + | Phone | Unavailable | + + + Support + + +---------+ + | Name | Relationship | Address | Phone | + + +---------+ + | Arcadio Jordan | ECON | Unknown | | + + +---------+ + Care Team Providers + +------+ + | Care Field Pipe Lines Supervisor Name | Role | Phone | + +------+ + | Ronald Alvarez MD | PCP | | + +------+ + Encounter Details +--------+ + + + + | Date | Type | Department | Care Team | Description | +--------+ + + + + | 01/28/ | Abstract | Neurology at | Clinic, Neurology | | | 2013 | | [facility] & | | | | | | Healing [address] | | | | | | Sheri Mailcode: CH8C | | | | | | [facility] | | | | | | and Healing, | | | | | | Building | | | | | | [place], [place] | | | | | | [address] | | | | | | [phone] | | | +--------+ + + + [...]
--- OUTSIDE RECORDS SUMMARY | ~2019-09-14 | XMS | Encounter Summary ---
Demographics + + + | Address | [address] | | | [place] [address] | + + + | Home Phone | | + + + | Preferred Language | Unknown | + + + | Marital Status | | + + + | Religion Affiliation | Unknown | + + + | Race | White | + + + | Ethnic Group | Not or | + + + Author + + + | Author | [facility] | + + + | Organization | [facility] | + + + | Address | Unknown | + + + | Phone | Unavailable | + + + Support + + +---------+ + | Name | Relationship | Address | Phone | + + +---------+ + | Arcadio Jordan | ECON | Unknown | | + + +---------+ + Care Team Providers + +------+ + | Care Brass Pourer Name | Role | Phone | + +------+ + | Ronald Alvarez MD | PCP | | + +------+ + Reason for Referral Diagnostic Testing (Routine) +--------+--------+ + + + + | Status | Reason | Specialty | Diagnoses / | Referred By | Referred To | | | | | Procedures | Contact | Contact | +--------+--------+ + + + + | Closed | | Radiology | Diagnoses | Andres, | [address] | | | | | Hypokalemia | MD Carter | [address] | | | | | Procedures | [address] | | | | | CT ABDOMEN | [place] | [address] | | | | | & PELVIS WO | Rd | [facility], | | | | | IV CONTRAST | [place], [place] | 10th Floor | | | | | AL CT ABD | [address] | [facility] [place] | | | | | & PELVIS W/O | Phone: | [address] | | | | | CONTRAST | [phone] | Phone: | | | | | | Fax: | [phone] | | | | | | [phone] | Fax: | | | | | | | [phone] | +--------+--------+ + + + + Encounter Details +--------+ + + + + | Date | Type | Department | Care Team | Description | +--------+ + + + + | 08/15/ | MyChart | Souleymane Goldman | Carter Campos MD | RE:labs | | 2013 | Encounter | [facility] | [address] | | | | | [facility] at [facility] | [address] [place], | | | | | [address] | [place] [address] | | | | | [address] | [phone] | | | | | Physician's | | | | | | [place], [address] [place] [address] | | | | | | [place], [place] | | | | | | [address] | | | | | | [phone] | | | +--------+ + + + [...] filedocumented as of this encounter Visit Diagnoses + + | Diagnosis | + + | Hypokalemia - Primary Hypopotassemia | + + documented in this encounter"
--- OUTSIDE RECORDS SUMMARY | ~2019-09-14 | XMS | Encounter Summary ---
Demographics + + + | Address | [address] | | | [place] [address] | + + + | Home Phone | | + + + | Preferred Language | Unknown | + + + | Marital Status | | + + + | Gnosticist Affiliation | Unknown | + + + | Race | White | + + + | Ethnic Group | Not or | + + + Author + + + | Author | [facility] | + + + | Organization | [facility] | + + + | Address | Unknown | + + + | Phone | Unavailable | + + + Support + + +---------+ + | Name | Relationship | Address | Phone | + + +---------+ + | Arcadio Jordan | ECON | Unknown | | + + +---------+ + Care Team Providers + +------+ + | Care Inspector Packer Glass Container Name | Role | Phone | + +------+ + | Ronald Alvarez MD | PCP | | + +------+ + Reason for Visit + + + | Reason | Comments | + + + | Adrenal Mass | | + + + Intake Referral (Urgent) +--------+--------+ + + + + | Status | Reason | Specialty | Diagnoses / | Referred By | Referred To | | | | | Procedures | Contact | Contact | +--------+--------+ + + + + | Closed | | Endocrinology | Diagnoses | Kim, | 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 | MD Trevor | [address] | | | | | | [address] | [address] | | | | | | INTERNAL | Physician's | | | | | | MEDICINE | Pavilion, | | | | | | [address] | 1st floor | | | | | | [address] | [place], [place] | | | | | | [address] | [address] | | | | | | [place], | Phone: | | | | | | [place] [address] | [phone] | | | | | | Phone: | Fax: | | | | | | [phone] | [phone] | | | | | | Fax: | | | | | | | [phone] | | +--------+--------+ + + + + Encounter Details +--------+---------+ + + + | Date | Type | Department | Care Team | Description | +--------+---------+ + + + | 11/05/ | Office | Souleymane Goldman | Carter Campos MD | Adrenal nodule (HCC) | | 2013 | Visit | [facility] | [address] | (Primary Dx) | | | | [facility] | [place], | | | | | [address] | [place] [address] | | | | | [address] | [phone] | | | | | Physician's | | | | | | [address], 1st floor | | | | | | [place], [place] | | | | | | [address] | | | | | | [phone] | | | +--------+---------+ + + + [...] Cessation: Ready to Quit: No; Counseling Given: No | + + + + +---------+ + [...] + + + | Blood Pressure | - | - | | + + + + + | Pulse | - | - | | + + + + + | Temperature | - | - | | + + + + + | Respiratory Rate | 12 | 11/05/2013 3:17 PM | | | | | PDT | | + + + + + | Oxygen Saturation | - | - | | + + + + + | Inhaled Oxygen | - | - | | | Concentration | | | | + + + + + | Weight | 73.6 kg (162 lb 4.8 | 11/05/2013 3:17 PM | | | | oz) | PDT | | + + + + + | Height | 170.2 cm (5' 7") | 11/05/2013 3:17 PM | | | | | PDT | | + + + + + | Body Mass Index | 25.42 | 11/05/2013 3:17 PM | | | | | PDT | | + + + + + documented in this encounter Progress Notes Carter Campos MD - 11/05/2013 3:18 PM [facility] Pt returns to discuss final workup of her adrenal nodule. She does not have primary hyperal dosteronism but can resume her spironolactone as it is beneficial for her hypokalemia and CH F. A CT showed a left 1.9 cm adrenal nodule and this should be assessed for Cushings: A) get 1 mg overnight dex suppression test B) midnight salivary cortisol testing The patient was provided with external order slips. The patient understands that they are s olely responsible in making sure the results are communicated to the ordering provider, no r eminders will be provided. Will also get metanephrines and random ACTH level today. The time I spent with the patient was 25 minutes of which greater than 50% was spent in one on one counseling. documented in this encou nter Plan of Treatment Not on filedocumented as of this encounter Procedures + +--------+ + + + | Procedure Name | Priori | Date/Time | Associated Diagnosis | Comments | | | ty | | | | + +--------+ + + + | CORTISOL, SERUM | Routin | 11/21/2013 | Adrenal nodule | Results for this | | | e | 8:10 AM | (HCC) | procedure are in the | | | | PDT | | results section. | + +--------+ + + + documented in this encounter Results CORTISOL, SERUM (11/21/2013 8:10 AM PDT) + + + + + + | Component | Value | Ref Range | Performed | Pathologist | | | | | At | Signature | + + + + + + | CORTISOL, | 1.3Comment: 1 mg | 1.8 ug/dl | [facility] | | | TOTAL SERUM | overnight DEX | | LAB | | + + + + + + + + | Specimen | + + | Blood - Blood | + + + + + + + | Performing | Address | City/State/Zipcode | Phone Number | | Organization | | | | + + + + + | [facility] | [address] | [place], [place] | | | | [place] | [address] | | + + + + + | [facility] | [address] | [place], [place] | | | | [facility] | [address] | | + + + + + CORTISOL, SERUM (11/05/2013 3:36 PM PDT) + +---------+ + + + | Component | Value | Ref Range | Performed | Pathologist | | | | | At | Signature | + +---------+ + + + | CORTISOL, | 5.2 (L) | 7.0 - 23.0 | [facility] | | | TOTAL SERUM | | mcg/dL | [facility] | | | | | [place] | | + +---------+ + + + + + | Specimen | + + | Blood - Blood | + + + + + + + | Performing | Address | City/State/Zipcode | Phone Number | | Organization | | | | + + + + + | [facility] | [address] | [place] [address] | | | [place] | | | | + + + + + ACTH, PLASMA (11/05/2013 3:36 PM PDT) + +-------+ + + + | Component | Value | Ref Range | Performed | Pathologist | | | | | At | Signature | + +-------+ + + + | ACTH,PLASMA | 5 | <=45 pg/mL | [facility] | | | [...] + | [facility] | [address] | [place] [address] | | | [place] | | | | + + + + + METANEPHRINES, PLASMA (11/05/2013 3:36 PM PDT) + + + + + + | Component | Value | Ref Range | Performed | Pathologist | | | | | At | Signature | + + + + + + | METANEPHRIN | 0.25 | 0.00 - 0.49 | [facility] | | | ES, PLASMA | | nmol/L | REG UNIV | | | | | | PTH - INTFC | | + + + + + + | NORMETANEPH | 1.20 (H) | 0.00 - 0.89 | [facility] | | | RINES, | | nmol/L | REG UNIV | | | PLASMA | | | PTH - INTFC | | + + + + + + | INTERPRETAT | See NoteComment: | | [facility] | | | ION | INTERPRETIVE | | REG UNIV | | | | INFORMATION: | | PTH - INTFC | | | | Metanephrines, Plasma | | | | | | (Free) This test is | | | | | | useful in the detection | | | | | | of pheochromocytoma, | | | | | | arare neuroendocrine | | | | | | tumor. The majority of | | | | | | patients | | | | | | withpheochromocytoma | | | | | | have a plasma | | | | | | normetanephrineconcentra | | | | | | tion in excess of 2.2 | | | | | | nmol/L and/or a | | | | | | metanephrineconcentratio | | | | | | n in excess of 1.1 | | | | | | nmol/L. | | | | | | Increasedconcentrations | | | | | | of these analytes serve | | | | | | as confirmation | | | | | | fordiagnosis. Patients | | | | | | with essential | | | | | | hypertension and | | | | | | plasmaconcentrations of | | | | | | normetanephrine below | | | | | | 0.9 nmol/L and | | | | | | ametanephrine | | | | | | concentration below 0.5 | | | | | | nmol/L, can beexcluded | | | | | | from further testing. If | | | | | | clinical | | | | | | suspicionremains, repeat | | | | | | testing or testing for | | | | | | metanephrines in a24-hr. | | | | | | urine specimen should | | | | | | be considered. See | | | | | | Compliance Statement B: | | | | | | [email or web address] | | | | | | by [employer],[address] | | | | | | [facility] | | | | | | [address] | | | | | | [phone]. | | | | | | com, Fei Harvey, | | | | | | , [...] [facility] | [address] | [place], [place] | | | UNIV PTH - INTFC | | [address] | | + + + + + COMPLETE METABOLIC SET (NA,K,CL,CO2,BUN,CREAT,GLUC,CA,AST,ALT,BILI TOTAL,ALK PHOS,ALB,PROT TOTAL) (11/05/2013 3:36 PM PDT) + +---------+ + + + | Component | Value | Ref Range | Performed | Pathologist | | | | | At | Signature | + +---------+ + + + | GLUCOSE, | 96 | 60 - 99 mg/dL | [facility] | | | PLASMA | | | LABORATORY | | | (LAB) | | | SERVICES, | | | | | | CORE | | + +---------+ + + + | BUN, PLASMA | 12 | 6 - 20 mg/dL | [facility] | | | (LAB) | | | LABORATORY | | | | | | SERVICES, | | | | | | CORE | | + +---------+ + + + | CREATININE | 0.63 | 0.60 - 1.10 | [facility] | | | PLASMA | | mg/dL | LABORATORY | | | (LAB) | | | SERVICES, | | | | | | CORE | | + +---------+ + + + | EGFR | >60 | >60 mL/min | [facility] | | | - | | | LABORATORY | | | FIJIAN | | | SERVICES, | | | | | | CORE | | + +---------+ + + + | EGFR NON | >60 | >60 mL/min | [facility] | | | -[facility] | | | LABORATORY | | | RICAN | | | SERVICES, | | | | | | CORE | | + +---------+ + + + | SODIUM, | 136 | 136 - 145 | [facility] | | | PLASMA | | mmol/L | LABORATORY | | | (LAB) | | | SERVICES, | | | | | | CORE | | + +---------+ + + + | POTASSIUM, | 4.4 | 3.4 - 5.0 | [facility] | | | PLASMA | | mmol/L | LABORATORY | | | (LAB) | | | SERVICES, | | | | | | CORE | | + +---------+ + + + | CHLORIDE, | 105 | 97 - 108 mmol/L | [facility] | | | PLASMA | | | LABORATORY | | | (LAB) | | | SERVICES, | | | | | | CORE | | + +---------+ + + + | TOTAL CO2, | 26 | 21 - 32 mmol/L | [facility] | | | PLASMA | | | LABORATORY | | | (LAB) | | | SERVICES, | | | | | | CORE | | + +---------+ + + + | CALCIUM, | 9.3 | 8.6 - 10.2 | [facility] | | | PLASMA | | mg/dL | LABORATORY | | | (LAB) | | | SERVICES, | | | | | | CORE | | + +---------+ + + + | BILIRUBIN | 0.4 | 0.3 - 1.2 mg/dL | [facility] | | | TOTAL | | | LABORATORY | | | | | | SERVICES, | | | | | | CORE | | + +---------+ + + + | TOTAL | 7.3 | 6.4 - 8.2 g/dL | [facility] | | | PROTEIN, | | | LABORATORY | | | PLASMA | | | SERVICES, | | | (LAB) | | | CORE | | + +---------+ + + + | ALBUMIN, | 3.8 | 3.5 - 4.7 g/dL | [facility] | | | PLASMA | | | LABORATORY | | | (LAB) | | | SERVICES, | | | | | | CORE | | + +---------+ + + + | ALK PHOS | 54 | 42 - 98 U/L | [facility] | | | | | | LABORATORY | | | | | | SERVICES, | | | | | | CORE | | + +---------+ + + + | AST(SGOT) | 11 (L) | 15 - 41 U/L | [facility] | | | | | | LABORATORY | | | | | | SERVICES, | | | | | | CORE | | + +---------+ + + + | ALT (SGPT) | 20 | 12 - 60 U/L | [facility] | | | | | | LABORATORY | | | | | | SERVICES, | | | | | | CORE | | + +---------+ + + + | ANION | 5 | 4 - 11 mmol/L | [facility] | | | GAP(ALB | | | LABORATORY | | | CORRECTED) | | | SERVICES, | | | | | | CORE | | + +---------+ + + + | POTASSIUM | No Hemo | | [facility] | | | CMNT | | | LABORATORY | | | | | | SERVICES, | | | | | | CORE | | + +---------+ + + + | BILI T CMNT | No Hemo | | [facility] | | | | | | LABORATORY | | | | | | SERVICES, | | | | | | CORE | | + +---------+ + + + | AST CMNT | No Hemo | | [facility] | | | | | | LABORATORY | | | | | | SERVICES, | | | | | | CORE | | + +---------+ + + + | ANION GAP | 5 | mmol/L | [facility] | | | [...] the MDRD equation recommended by the | [facility] | | National Kidney Disease Education Program. Estimated GFR | LABORATORY | | Interpretive Information: <60 mL/min/1.73 sq m | SERVICES, CORE | | Chronic Kidney Disease <15 [...] | + + + + + | [facility] | [address] | [place] [address] | | | SERVICES, CORE | [address] | | | + + + + + documented in this encounter Visit Diagnoses + + | Diagnosis | + + | Adrenal nodule (HCC) - Primary Other specified disorders of adrenal glands | + + documented in this encounter
--- OUTSIDE RECORDS SUMMARY | ~2019-09-14 | XMS | Encounter Summary ---
Demographics + + + | Address | [address] | | | [place] [address] | + + + | Home Phone | | + + + | Preferred Language | Unknown | + + + | Marital Status | | + + + | Pentecostalism Affiliation | Unknown | + + + | Race | White | + + + | Ethnic Group | Not or | + + + Author + + + | Author | [facility] | + + + | Organization | [facility] | + + + | Address | Unknown | + + + | Phone | Unavailable | + + + Support + + +---------+ + | Name | Relationship | Address | Phone | + + +---------+ + | Arcadio Jordan | ECON | Unknown | | + + +---------+ + Care Team Providers + +------+ + | Care Auto Clutch Rebuilder Name | Role | Phone | + +------+ + | Ronald Alvarez MD | PCP | | + +------+ + Encounter Details +--------+ + + + + | Date | Type | Department | Care Team | Description | +--------+ + + + + | 10/02/ | Documentati | Souleymane Goldman | Carter Campos MD | | | 2013 | on | [facility] | [address] | | | | | [facility] | [address] [place], | | | | | [address] | [place] [address] | | | | | [address] | [phone] | | | | | Physician's | | | | | | Pavilion, 1st floor | | | | | | [place], [place] | | | | | | [address] | | | | | | [phone] | | | +--------+ + + + [...]
--- OUTSIDE RECORDS SUMMARY | ~2019-09-14 | XMS | Encounter Summary ---
Demographics + + + | Address | [address] | | | [place] [address] | + + + | Home Phone | | + + + | Preferred Language | Unknown | + + + | Marital Status | | + + + | Baptism Affiliation | Unknown | + + + | Race | White | + + + | Ethnic Group | Not or | + + + Author + + + | Author | [facility] | + + + | Organization | [facility] | + + + | Address | Unknown | + + + | Phone | Unavailable | + + + Support + + +---------+ + | Name | Relationship | Address | Phone | + + +---------+ + | Arcadio Jordan | ECON | Unknown | | + + +---------+ + Care Team Providers + +------+ + | Care Wallet Assembler Name | Role | Phone | + +------+ + | Ronald Alvarez MD | PCP | | + +------+ + Encounter Details +--------+ + + + + | Date | Type | Department | Care Team | Description | +--------+ + + + + | 09/30/ | MyChart | Souleymane Goldman | Carter Campos MD | RE: Bad Weekend/Labs | | 2013 | Encounter | [facility] | [address] | | | | | [facility] | [address] [place], | | | | | [address] | [place] [address] | | | | | [address] | [phone] | | | | | Physician's | | | | | | Pavilion, 1st floor | | | | | | [place], [place] | | | | | | [address] | | | | | | [phone] | | | +--------+ + + + [...]
--- OUTSIDE RECORDS SUMMARY | ~2019-09-14 | XMS | Encounter Summary ---
Demographics + + + | Address | [address] | | | [place] [address] | + + + | Home Phone | | + + + | Preferred Language | Unknown | + + + | Marital Status | | + + + | Sikh Affiliation | Unknown | + + + | Race | White | + + + | Ethnic Group | Not or | + + + Author + + + | Author | [facility] | + + + | Organization | [facility] | + + + | Address | Unknown | + + + | Phone | Unavailable | + + + Support + + +---------+ + | Name | Relationship | Address | Phone | + + +---------+ + | Arcadio Jordan | ECON | Unknown | | + + +---------+ + Care Team Providers + +------+ + | Care Community Support Specialist Name | Role | Phone | + +------+ + | Ronald Alvarez MD | PCP | | + +------+ + Encounter Details +--------+ + + + + | Date | Type | Department | Care Team | Description | +--------+ + + + + | 10/14/ | MyChart | Souleymane Goldman | Carter Campos MD | RE: Test this week? | | 2013 | Encounter | [facility] | [address] | | | | | [facility] | [address] [place], | | | | | [address] | [place] [address] | | | | | [address] | [phone] | | | | | Physician's | | | | | | [address], [facility] floor | | | | | | [place], [place] | | | | | | [address] | | | | | | [phone] | | | +--------+ + + + [...] as of this encounter Results ALDOSTERONE, SERUM (10/16/2013 12:51 PM PDT) + + + + + + | Component | Value | Ref Range | Performed | Pathologist | | | | | At | Signature | + + + + + + | ALDOSTERONE | 3.3Comment: INTERPRETIVE | ng/dL | [facility] | | | SERUM | INFORMATION: | | REG UNIV | | | | Aldosterone, Serum | | PTH - INTFC | | | | Reference intervals for [...] | | | | | in the [facility] | | | | | | LaboratoryTest Directory | | | | | | (5o9).Performed | | | | | | by [facility] | | | | | | [facility],[address] [facility] | | | | | | [facility], [place] [address] | | | | | | [phone]. | | | | | | [facility], Fei Harvey, | | | | | | MD Lab. Director | | | | + + + + + + + + | Specimen | + + | Blood - Blood | + + + + + + + | Performing | Address | City/State/Zipcode | Phone Number | | Organization | | | | + + + + + | [facility] | [address] | [place], [place] | | | UNIV PTH - INTFC | | [address] | | + + + + + RENIN, PLASMA (10/16/2013 12:51 PM PDT) + + + + + + | Component | Value | Ref Range | Performed | Pathologist | | | | | At | Signature | + + + + + + | RENIN | 23.2Comment: | ng/mL/hr | [facility] | | | PLASMA | INTERPRETIVE | | REG UNIV | | | | INFORMATION: Renin | | PTH - INTFC | | | | Activity Adult, Normal [...] | | | | | | Supine: (1-7 | | | | | | [...] by | | | | | | [employer],[address] | | | | | | [facility], [facility],[place] | | | | | | [address] | | | | | | [phone]. | | | | | | deepak, Fei Harvey, | | | | | [...] [facility] | [address] | [place], [place] | | | UNIV PTH - INTFC | | [address] | | + + + + + COMPLETE METABOLIC SET (NA,K,CL,CO2,BUN,CREAT,GLUC,CA,AST,ALT,BILI TOTAL,ALK PHOS,ALB,PROT TOTAL) (10/16/2013 12:51 PM PDT) + + + + + + | Component | Value | Ref Range | Performed | Pathologist | | | | | At | Signature | + + + + + + | GLUCOSE, | 138 (H) | 60 - 99 mg/dL | [facility] | | | PLASMA | | | LABORATORY | | | (LAB) | | | SERVICES, | | | | | | CORE | | + + + + + + | BUN, PLASMA | 13 | 6 - 20 mg/dL | [facility] | | | (LAB) | | | LABORATORY | | | | | | SERVICES, | | | | | | CORE | | + + + + + + | CREATININE | 0.58 (L) | 0.60 - 1.10 | [facility] | | | PLASMA | | mg/dL | LABORATORY | | | (LAB) | | | SERVICES, | | | | | | CORE | | + + + + + + | EGFR | >60 | >60 mL/min | [facility] | | | - | | | LABORATORY | | | GEORGIAN | | | SERVICES, | | | | | | CORE | | + + + + + + | EGFR NON | >60 | >60 mL/min | [facility] | | | -[facility] | | | LABORATORY | | | RICAN | | | SERVICES, | | | | | | CORE | | + + + + + + | SODIUM, | 140 | 136 - 145 | [facility] | | | PLASMA | | mmol/L | LABORATORY | | | (LAB) | | | SERVICES, | | | | | | CORE | | + + + + + + | POTASSIUM, | 3.4 | 3.4 - 5.0 | [facility] | | | PLASMA | | mmol/L | LABORATORY | | | (LAB) | | | SERVICES, | | | | | | CORE | | + + + + + + | CHLORIDE, | 107 | 97 - 108 mmol/L | [facility] | | | PLASMA | | | LABORATORY | | | (LAB) | | | SERVICES, | | | | | | CORE | | + + + + + + | TOTAL CO2, | 24 | 21 - 32 mmol/L | [facility] | | | PLASMA | | | LABORATORY | | | (LAB) | | | SERVICES, | | | | | | CORE | | + + + + + + | CALCIUM, | 8.8 | 8.6 - 10.2 | [facility] | | | PLASMA | | mg/dL | LABORATORY | | | (LAB) | | | SERVICES, | | | | | | CORE | | + + + + + + | BILIRUBIN | 0.7 | 0.3 - 1.2 mg/dL | [facility] | | | TOTAL | | | LABORATORY | | | | | | SERVICES, | | | | | | CORE | | + + + + + + | TOTAL | 6.8 | 6.4 - 8.2 g/dL | [facility] | | | PROTEIN, | | | LABORATORY | | | PLASMA | | | SERVICES, | | | (LAB) | | | CORE | | + + + + + + | ALBUMIN, | 3.4 (L) | 3.5 - 4.7 g/dL | [facility] | | | PLASMA | | | LABORATORY | | | (LAB) | | | SERVICES, | | | | | | CORE | | + + + + + + | ALK PHOS | 52 | 42 - 98 U/L | [facility] | | | | | | LABORATORY | | | | | | SERVICES, | | | | | | CORE | | + + + + + + | AST(SGOT) | 12 (L) | 15 - 41 U/L | [facility] | | | | | | LABORATORY | | | | | | SERVICES, | | | | | | CORE | | + + + + + + | ALT (SGPT) | 19 | 12 - 60 U/L | [facility] [...] + + + | ANION GAP | 9 | mmol/L | [facility] | | | [...] the MDRD equation recommended by the | [facility] | | National Kidney Disease Education Program. Estimated GFR | LABORATORY | | Interpretive Information: <60 mL/min/1.73 sq m | [facility] | | Chronic Kidney Disease <15 mL/min/1.73 [...] | + + + + + | [facility] | [address] | [place] [address] | | | SERVICES, CORE | [address] | | | + + + + + documented in this encounter Visit Diagnoses + + | Diagnosis | + + | Hypokalemia - Primary Hypopotassemia | + + documented in this encounter"
--- OUTSIDE RECORDS SUMMARY | ~2019-09-14 | XMS | Encounter Summary ---
Demographics + + + | Address | [address] | | | [place] [address] | + + + | Home Phone | | + + + | Preferred Language | Unknown | + + + | Marital Status | | + + + | Advent Affiliation | Unknown | + + + | Race | White | + + + | Ethnic Group | Not or | + + + Author + + + | Author | [facility] | + + + | Organization | [facility] | + + + | Address | Unknown | + + + | Phone | Unavailable | + + + Support + + +---------+ + | Name | Relationship | Address | Phone | + + +---------+ + | Arcadio Jordan | ECON | Unknown | | + + +---------+ + Care Team Providers + +------+ + | Care Superintendent Drivers Name | Role | Phone | + +------+ + | Ronald Alvarez MD | PCP | | + +------+ + Encounter Details +--------+ + + + + | Date | Type | Department | Care Team | Description | +--------+ + + + + | 11/22/ | Documentati | Souleymane Goldman | Carter Campos MD | | | 2013 | on | [facility] | [address] | | | | | [facility] | [address] [place], | | | | | [address] | [place] [address] | | | | | [address] | [phone] | | | | | Physician's Pavilion | | | | | | [address], | | | | | | [place] [address] | | | | | | [phone] | | | +--------+ + + + [...]
--- OUTSIDE RECORDS SUMMARY | ~2019-09-14 | XMS | Encounter Summary ---
Demographics + + + | Address | [address] | | | [place] [address] | + + + | Home Phone | | + + + | Preferred Language | Unknown | + + + | Marital Status | | + + + | Restoration Affiliation | Unknown | + + + | Race | White | + + + | Ethnic Group | Not or | + + + Author + + + | Author | [facility] | + + + | Organization | [facility] | + + + | Address | Unknown | + + + | Phone | Unavailable | + + + Support + + +---------+ + | Name | Relationship | Address | Phone | + + +---------+ + | Arcadio Jordan | ECON | Unknown | | + + +---------+ + Care Team Providers + +------+ + | Care Signals Analyst Name | Role | Phone | + [...] | | | | | Center at [facility] | [address] [place], | | | | | [address] | [place] [address] | | | | | [address] | [phone] | | | | | Physician's | | | | | | Pavilion, 1st floor | | | | | | [place], [place] | | | | | | [address] | | | | | | [phone] | | | +--------+ + + + [...]
--- OUTSIDE RECORDS SUMMARY | ~2019-09-14 | XMS | Encounter Summary ---
Demographics + + + | Address | [address] | | | [place] [address] | + + + | Home Phone | | + + + | Preferred Language | Unknown | + + + | Marital Status | | + + + | Samaritan Affiliation | Unknown | + + + | Race | White | + + + | Ethnic Group | Not or | + + + Author + + + | Author | [facility] | + + + | Organization | [facility] | + + + | Address | Unknown | + + + | Phone | Unavailable | + + + Support + + +---------+ + | Name | Relationship | Address | Phone | + + +---------+ + | Arcadio Jordan | ECON | Unknown | | + + +---------+ + Care Team Providers + +------+ + | Care Large Engine Assembler Name | Role | Phone | + +------+ + | Ronald Alvarez MD | PCP | | + +------+ + Encounter Details +--------+ + + + + | Date | Type | Department | Care Team | Description | +--------+ + + + + | 12/30/ | [facility] | Souleymane Goldman | Carter Campos MD | urine | | 2013 | Encounter | [facility] | [address] | | | | | [facility] | [address] [place], | | | | | [address] | [place] [address] | | | | | [address] | [phone] | | | | | Physician's | | | | | | Pavilion, 1st floor | | | | | | [place], [place] | | | | | | [address] | | | | | | [phone] | | | +--------+ + + + [...]
--- OUTSIDE RECORDS SUMMARY | ~2019-09-14 | XMS | Encounter Summary ---
Demographics + + + | Address | [address] | | | [place] [address] | + + + | Home Phone | | + + + | Preferred Language | Unknown | + + + | Marital Status | | + + + | Orthodoxy Affiliation | Unknown | + + + | Race | White | + + + | Ethnic Group | Not or | + + + Author + + + | Author | [facility] | + + + | Organization | [facility] | + + + | Address | Unknown | + + + | Phone | Unavailable | + + + Support + + +---------+ + | Name | Relationship | Address | Phone | + + +---------+ + | Arcadio Jordan | ECON | Unknown | | + + +---------+ + Care Team Providers + +------+ + | Care Bilingual Teacher Aide Name | Role | Phone | + +------+ + | Ronald Alvarez MD | PCP | | + +------+ + Encounter Details +--------+ + + + + | Date | Type | Department | Care Team | Description | +--------+ + + + + | 09/19/ | Documentati | Souleymane Goldman | Carter Campos MD | | | 2014 | on | Diabetes Health | [address] | | | | | Center at [facility] | [address] [place], | | | | | [address] | [place] [address] | | | | | [address] | [phone] | | | | | Physician's | | | | | | Pavilion, 1st floor | | | | | | [place], [place] | | | | | | [address] | | | | | | [phone] | | | +--------+ + + + [...] | + +--------+ + + + | COMPLETE METABOLIC | Routin | 09/19/2013 | | Results for this | | SET | e | | | procedure are in the | | (NA,K,CL,CO2,BUN,CRE | | | | results section. | | AT,GLUC,CA,AST,ALT,B | | | | | | KARINA TOTAL,ALK | | | | | | PHOS,ALB,PROT TOTAL) | | | | | + +--------+ + + + documented in this encounter Results COMPLETE METABOLIC SET (NA,K,CL,CO2,BUN,CREAT,GLUC,CA,AST,ALT,BILI TOTAL,ALK PHOS,ALB,PROT TOTAL) (09/19/2013) + +-------+ + + + | Component | Value | Ref Range | Performed | Pathologist | | | | | At | Signature | + +-------+ + + + | GLUCOSE, | 92 | 65 - 110 mg/dL | [facility] | | | PLASMA | | | LAB | | | (LAB) | | | | | + +-------+ + + + | BUN, PLASMA | 10 | mg/dL | [facility] | | | (LAB) | | | LAB | | + +-------+ + + + | CREATININE | 0.62 | mg/dL | [facility] | | | PLASMA | | | LAB | | | (LAB) | | | | | + +-------+ + + + | TOTAL | 6.2 | g/dL | [facility] | | | PROTEIN, | | | LAB | | | PLASMA | | | | | | (LAB) | | | | | + +-------+ + + + | ALBUMIN, | 3.9 | g/dL | [facility] | | | PLASMA | | | LAB | | | (LAB) | | | | | + +-------+ + + + | CALCIUM, | 9.1 | mg/dL | [facility] | | | PLASMA | | | LAB | | | (LAB) | | | | | + +-------+ + + + | BILIRUBIN | 0.7 | Transcutaneous | [facility] | | | TOTAL | | Bilirubinometer | LAB | | + +-------+ + + + | ALK PHOS | 45 | U/L | [facility] | | | | | | LAB | | + +-------+ + + + | AST(SGOT) | 13 | U/L | [facility] | | | | | | LAB | | + +-------+ + + + | SODIUM, | 135 | mmol/L | [facility] | | | PLASMA | | | LAB | | | (LAB) | | | | | + +-------+ + + + | POTASSIUM, | 4.1 | mmol/L | [facility] | | | PLASMA | | | LAB | | | (LAB) | | | | | + +-------+ + + + | CHLORIDE, | 103 | mmol/L | [facility] | | | PLASMA | | | LAB | | | (LAB) | | | | | + +-------+ + + + | TOTAL CO2, | 23 | mmol/L | [facility] | | | PLASMA | | | LAB | | | (LAB) | | | | | + +-------+ + + + | ALT (SGPT) | 14 | U/L | [facility] | | | | | | LAB | | + +-------+ + + + + + | Specimen | + + | Blood - Blood | + + + + + + + | Performing | Address | City/State/Zipcode | Phone Number | | Organization | | | | + + + + + | [facility] | [address] | [place], [place] | | | | [place] | [address] | | + + + + + | [facility] | [address] | [place], [place] | | | | [address] | [address] | | + + + + + documented in this encounter Visit Diagnoses Not on filedocumented in this encounter"
--- OUTSIDE RECORDS SUMMARY | ~2019-09-14 | XMS | Encounter Summary ---
Demographics + + + | Address | [address] | | | [place] [address] | + + + | Home Phone | | + + + | Preferred Language | Unknown | + + + | Marital Status | | + + + | Mu-Ism Affiliation | Unknown | + + + | Race | White | + + + | Ethnic Group | Not or | + + + Author + + + | Author | [facility] | + + + | Organization | [facility] | + + + | Address | Unknown | + + + | Phone | Unavailable | + + + Support + + +---------+ + | Name | Relationship | Address | Phone | + + +---------+ + | Arcadio Jordan | ECON | Unknown | | + + +---------+ + Care Team Providers + +------+ + | Care Electronic Imager Name | Role | Phone | + +------+ + | Ronald Alvarez MD | PCP | | + +------+ + Encounter Details +--------+ + + + + | Date | Type | Department | Care Team | Description | +--------+ + + + + | 12/10/ | Documentati | Souleymane Goldman | Carter Campos MD | | | 2013 | on | Diabetes Health | [address] | | | | | Center at [facility] | [address] [place], | | | | | [address] | [place] [address] | | | | | [address] | [phone] | | | | | Physician's | | | | | | Pavilion, 1st floor | | | | | | [place], [place] | | | | | | [address] | | | | | | [phone] | | | +--------+ + + + [...] | + +--------+ + + + | SALIVARY CORTISOL | Routin | 11/22/2013 | | Results for this | | (TAKE HOME) - ENDO | e | 12:30 AM | | procedure are in the | | USE ONLY (NO CHG) | | PDT | | results section. | + +--------+ + + + | SALIVARY CORTISOL | Routin | 11/21/2013 | | Results for this | | (TAKE HOME) - ENDO | e | 11:45 PM | | procedure are in the | | USE ONLY (NO CHG) | | PDT | | results section. | + +--------+ + + + documented in this encounter Results SALIVARY CORTISOL (TAKE HOME) - ENDO USE ONLY (NO CHG) (11/22/2013 12:30 AM PDT) + +-------+ + + + | Component | Value | Ref Range | Performed | Pathologist | | | | | At | Signature | + +-------+ + + + | SALIVARY | 0.8 | <0.3 - 4.3 | [facility] | | | CORTISOL | | nmol/L | LAB | | | (11PM) | | | | | + +-------+ + + + + + | Specimen | + + | | + + + + + + + | Performing | Address | City/State/Zipcode | Phone Number | | Organization | | | | + + + + + | [facility] | [address] | [place], [place] | | | | [address] | [address] | | + + + + + | [facility] | [address] | [place], [place] | | | | [address] | [address] | | + + + + + SALIVARY CORTISOL (TAKE HOME) - ENDO USE ONLY (NO CHG) (11/21/2013 11:45 PM PDT) + +-------+ + + + | Component | Value | Ref Range | Performed | Pathologist | | | | | At | Signature | + +-------+ + + + | SALIVARY | 0.5 | <0.3 - 4.3 | [facility] | | | CORTISOL | | nmol/L | LAB | | | (11PM) | | | | | + +-------+ + + + + + | Specimen | + + | | + + + + + + + | Performing | Address | City/State/Zipcode | Phone Number | | Organization | | | | + + + + + | [facility] | [address] | [place], [place] | | | | [address] | [address] | | + + + + + | [facility] | [address] | [place], [place] | | | | [address] [place] | [address] | | + + + + + documented in this encounter Visit Diagnoses Not on filedocumented in this encounter"
--- OUTSIDE RECORDS SUMMARY | ~2019-09-14 | XMS | Encounter Summary ---
Demographics + + + | Address | [address] | | | [place] [address] | + + + | Home Phone | | + + + | Preferred Language | Unknown | + + + | Marital Status | | + + + | Pentecostal Affiliation | Unknown | + + + | Race | White | + + + | Ethnic Group | Not or | + + + Author + + + | Author | [facility] | + + + | Organization | [facility] | + + + | Address | Unknown | + + + | Phone | Unavailable | + + + Support + + +---------+ + | Name | Relationship | Address | Phone | + + +---------+ + | Arcadio Jordan | ECON | Unknown | | + + +---------+ + Care Team Providers + +------+ + | Care Dry Wall Applicator Name | Role | Phone | + +------+ + | Ronald Alvarez MD | PCP | | + +------+ + Encounter Details +--------+------+ + + + | Date | Type | Department | Care Team | Description | +--------+------+ + + + | 10/16/ | Lab | [facility] at [facility] | | Hypokalemia | | 2013 | | [address] | | | | | | Loop Physician's | | | | | | [place], [address] [place] [address] | | | | | | [place], [place] | | | | | | [address] | | | | | | [phone] | | | +--------+------+ + + + Social History + + [...] | + +--------+ + + + | RENIN, PLASMA | Routin | 10/16/2013 | Hypokalemia | Results for this | | | e | 12:51 PM | | procedure are in the | | | | PDT | | results section. | + +--------+ + + + | COMPLETE METABOLIC | Routin | 10/16/2013 | Hypokalemia | Results for this | | SET | e | 12:51 PM | | procedure are in the | | (NA,K,CL,CO2,BUN,CRE | | PDT | | results section. | | AT,GLUC,CA,AST,ALT,B | | | | | | KARINA TOTAL,ALK | | | | | | PHOS,ALB,PROT TOTAL) | | | | | + +--------+ + + + | ALDOSTERONE, SERUM | Routin | 10/16/2013 | Hypokalemia | Results for this | | | e | 12:51 PM | | procedure are in the | | | | PDT | | results section. | + +--------+ + + + documented in this encounter Results ALDOSTERONE, SERUM (10/16/2013 12:51 [...] | | | | | in the [facility] | | | | | | LaboratoryTest Directory | | | | | | ([place]).Performed | | | | | | by [facility] | | | | | | [facility],[address] | | | | | | [place] [address] | | | | | | [phone].[employer] | | | | | | [facility], Fei Harvey, | | | | [...] [facility] | [address] | [place], [place] | | | [address] | | [address] | | + + + + + [...] by | | | | | | [email or web address] | | | | | | Tammy Burgess, [facility],[place] | | | | | | [address] | | | | | | [phone].[employer]. | | | | | | deepak, Fei Harvey, | | | | | | Aakash ARORA. Director | | | | + + + + + + + + | Specimen | + + | Blood - Blood | + + + + + + + | Performing | Address | City/State/Zipcode | Phone Number | | Organization | | | | + + + + + | [facility] | [address] | [place], [place] | | | [address] | | [address] | | + + + + + [...] | | | LABORATORY | | | [place] | | | SERVICES, | | | [...] the MDRD equation recommended by the | [facility] | | National Kidney Disease Education Program. [...] | + + + + + | [facility] | [address] | [place] [address] | | | SERVICES, [place] | [address] | | | + + + + + documented in this encounter Visit Diagnoses + + | Diagnosis | + + | Hypokalemia Hypopotassemia | + + documented in this encounter"
--- OUTSIDE RECORDS SUMMARY | ~2019-09-14 | XMS | Encounter Summary ---
Demographics + + + | Address | [address] | | | [place] [address] | + + + | Home Phone | | + + + | Preferred Language | Unknown | + + + | Marital Status | | + + + | Catholic Affiliation | Unknown | + + + | Race | White | + + + | Ethnic Group | Not or | + + + Author + + + | Author | [facility] | + + + | Organization | [facility] | + + + | Address | Unknown | + + + | Phone | Unavailable | + + + Support + + +---------+ + | Name | Relationship | Address | Phone | + + +---------+ + | Arcadio Jordan | ECON | Unknown | | + + +---------+ + Care Team Providers + +------+ + | Care Children Librarian Name | Role | Phone | + +------+ + | Ronald Alvarez MD | PCP | | + +------+ + Encounter Details +--------+ + + + + | Date | Type | Department | Care Team | Description | +--------+ + + + + | 12/10/ | [facility] | Souleymane Goldamn | Carter Campos MD | RE:saliva | | 2013 | Encounter | Diabetes Health | [address] | | | | | Center at [facility] | [address] [place], | | | | | [address] | [place] [address] | | | | | [address] | [phone] | | | | | Physician's | | | | | | Pavilion, 1st floor | | | | | | [place], [place] | | | | | | [address] | | | | | | [phone] | | | +--------+ + + + [...]
--- OUTSIDE RECORDS SUMMARY | ~2019-09-14 | XMS | Clinical Summary ---
Demographics + + + | Address | [address] | | | [place] [address] | + + + | Home Phone | | + + + | Preferred Language | Unknown | + + + | Marital Status | | + + + | Mormonism Affiliation | Unknown | + + + | Race | White | + + + | Ethnic Group | Not or | + + + Author + + + | Author | [facility] | + + + | Organization | [facility] | + + + | Address | Unknown | + + + | Phone | Unavailable | + + + Support + + +---------+ + | Name | Relationship | Address | Phone | + + +---------+ + | Arcadio Jordan | ECON | Unknown | | + + +---------+ + Care Team Providers + +------+ + | Care Emergency Dispatch Operator Name | Role | Phone | + +------+ + | Ronald Alvarez MD | PCP | | + +------+ + Source Comments BOO is fully live on both EpicCare Ambulatory and EpicCare InPatient.[facility] Allergies + + + + + + | Active Allergy | Reactions | Severity | Noted | Comments | | | | | Date | | + + + + + + | Triprolidine-Pseudoe | Unknown | | 08/14/19 | | | phedrine | | | 14 | | + + + + + + Medications + + + +---------+------+------+-------+ | Medication | Sig | Dispensed | Refills | Star | End | Statu | | | | | | t | Date | s | | | | | | Date | | | + + + +---------+------+------+-------+ | LISINOPRIL 10 mg | Take 10 mg by mouth | | 0 | 05/2 | | Activ | | oral tablet | two times daily. | | | 08/30 | | e | | | | | | 14 | | | + + + +---------+------+------+-------+ | CARVEDILOL 12.5 mg | Take 12.5 mg by | | 0 | 05/2 | | Activ | | oral tablet | mouth two times | | | 05/02 | | e | | | daily. | | | 14 | | | + + + +---------+------+------+-------+ | VITAMIN D2 50,000 | Take by mouth twice | | 0 | 05/ | | Activ | | unit oral capsule | weekly (on Monday | | | 05/02 | | e | | | and Monday). | | | 14 | | | + + + +---------+------+------+-------+ | CYCLOBENZAPRINE 10 | Take 10 mg by mouth | | 0 | 05 | | Activ | | mg oral tablet | two times daily. | | | 05/02 | | e | | | | | | 14 | | | + + + +---------+------+------+-------+ | NORCO 5-325 mg | Take 1 tablet by | | 0 | 06/12 | | Activ | | oral tablet | mouth twice daily as | | | 11/30 | | e | | | needed. | | | 14 | | | + + + +---------+------+------+-------+ | aspirin chewable | Take 81 mg by mouth | | 0 | | | Activ | | 81 mg oral | once daily. | | | | | e | | tablet,chewable | | | | | | | + + + +---------+------+------+-------+ | cetirizine 10 mg | Take 10 mg by mouth | | 0 | | | Activ | | oral tablet | once daily. | | | | | e | + + + +---------+------+------+-------+ | hydrOXYzine | Take 1 capsule by | | 0 | 06/0 | | Activ | | pamoate 50 mg oral | mouth once daily. | | | 3/20 | | e | | capsule | | | | 14 | | | + + + +---------+------+------+-------+ | spironolactone 25 | Take 25 mg by mouth | | 0 | | | Activ | | mg oral tablet | once daily. | | | | | e | + + + +---------+------+------+-------+ | levonorgestrel | 1 each by | | 0 | | | Activ | | (MIRENA) 20 mcg/24 | intrauterine route | | | | | e | | hr (5 years) | once. May be removed | | | | | | | intrauterine | and replaced with a | | | | | | | intrauterine device | new unit at anytime | | | | | | | | during menstrual | | | | | | | | cycle; do not leave | | | | | | | | any one system in | | | | | | | | place for > 5 years. 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 | + + + + + | Overview: August 2013 CT: Left 1.9 cm adenoma (-10 HU) | | Negative hormonal workup | + + Resolved Problems + + + + | Problem | Noted | Resolved | | | Date | Date | + + + + | Hypokalemia | 08/14/19 | | | | 14 | 4 | + + + + Family History + + +------+ + | Medical History | Relation | Name | Comments | + + +------+ + | Cancer | Grandmoth | | | | | er | | | + + +------+ + | MS | Mother | | | + + +------+ + + +------+--------+ + | Relation | Name | Status | Comments | + +------+--------+ + | Grandmother | | | | + +------+--------+ + | Mother | | | | + +------+--------+ + Social History + + + +--------+------+ [...] recent travel history available. | + + Last Filed Vital Signs + + + + + | Vital Sign | Reading | Time Taken | Comments | + + + + + | Blood Pressure | 124/76 | 02/11/2014 2:04 PM | | | | | PST | | + + + + + | Pulse | 75 | 02/11/2014 2:04 PM | | | | | PST | | + + + + + [...] + + + + | Weight | 72.6 kg (160 lb) | 02/11/2014 2:04 PM | | | | | PST | | + + + + + | Height | 170.2 cm (5' 7") | 11/05/2013 3:17 PM | | | | | PDT | | + + + + + | Body Mass Index | 25.06 | 11/05/2013 3:17 PM | | | | | PDT | | + + + + + Plan of Treatment + + + + + | Health Maintenance | Due Date | Last Done | Comments | + + + + + | Pneumococcal | | | | | vaccination (1 of 1 | 4 | | | | - PPSV23) | | | | + + + + + | Influenza (Flu) | | | | | vaccination (#1) | 9 | | | + + + + + Results Not on filefrom Last 3 Months Insurance + +--------+ +--------+ + +------+ | Payer | Benefi | Subscriber | Effect | Phone | Address | Type | | | t Plan | ID | mendoza | | | | | | / | | Dates | | | | | | Group | | | | | | + +--------+ +--------+ + +------+ | BLUE CROSS BLUE | HMA/RG | [phone] | 09/11/19 | [phone] | [address] | PPO | | SHIELD | A | x | 09-Pre | 8 | [id number] | | | | | | sent | | [place], | | | | | | | | [place] | | | | | | | | [address] | | + +--------+ +--------+ + +------+ + +--------+ +--------+ + + | Guarantor Name | Accoun | Relation to | Date | Phone | Billing Address | | | t Type | Patient | of | | | | | | | | | | + +--------+ +--------+ + + | Neda oJrdan | Person | Self [birth year] | [address] | | | al/Fam | | 1966 | [phone] [place] | | | [place] | | | 9 (Home) | [address] | | | | | | [phone] | | | | | | | 4 (Work) | | + +--------+ +--------+ + +
--- OUTSIDE RECORDS SUMMARY | ~2019-09-14 | XMS | Encounter Summary ---
Demographics + + + | Address | [address] | | | [place] [address] | + + + | Home Phone | | + + + | Preferred Language | Unknown | + + + | Marital Status | | + + + | Evangelical Affiliation | Unknown | + + + | Race | Unknown | + + + | Ethnic Group | Unknown | + + + Author + + + | Author | [facility] | | | and [place] | + + + | Organization | [facility] | | | and [place] | + + + | Address | Unknown | + + + | Phone | Unavailable | + + + Support + + + + + | Name | Relationship | Address | Phone | + + + + + | Arcadio Jordan | ECON | [address] | | | | | [place] | | | | | [address] | | + + + + + Care Team Providers + +------+ + | Care House Painting Instructor Name | Role | Phone | + +------+ + PCP | Unavailable | + +------+ + Encounter Details +--------+ + + + + | Date | Type | Department | Care Team | Description | +--------+ + + + + | 08/10/ | Hospital | [facility] | Nicolas Harvey | | | 2006 | Encounter | MED CTR GENERIC OP | [place], [address] | | | | | CONV DEPT [address] [place], [place] | | | | | [place], | [address] | | | | | [place] [address] | [phone] | | | | | [phone] | | | +--------+ + + + + Social History + +-------+ +--------+------+ | Tobacco Use | Types | Packs/Day | Years | Date | | | | | Used | | + +-------+ +--------+------+ | Never Assessed | | | | | + +-------+ +--------+------+ + + + | Sex Assigned at | Date Recorded | | | | + + + | Not on file | | + + + documented as of this encounter Plan of Treatment Not on filedocumented as of this encounter Visit Diagnoses Not on filedocumented in this encounter"
--- OUTSIDE RECORDS SUMMARY | ~2019-09-14 | XMS | Encounter Summary ---
Demographics + + + | Address | [address] | | | [place] [address] | + + + | Home Phone | | + + + | Preferred Language | Unknown | + + + | Marital Status | | + + + | Cheondoism Affiliation | Unknown | + + + [...] Team Providers + +------+ + | Care Steam Table Associate Name | Role | Phone | + +------+ + | Ronald Alvarez MD | PCP | | + +------+ + Reason for Visit + + + | Reason | Comments | + + + | New patient | | | consultation | | + + + Consultation (Routine) +--------+--------+ + + + + [...] | weakness | [address] | [address] | | | | | Procedures | [facility] | Mailcode: | | | | | CONSULT TO | Rd | [facility] | | | | | NEUROLOGY | [place], [place] | for Health | | | | | | [address] | and Healing, | | | | | | Phone: | Building 1, | | | | | | [phone] | 8th Floor | | | | | | Fax: | [place], [place] | | | | | | [phone] | [address] | | | | | | | Phone: | | | | | | | [phone] | | | | | | | Fax: | | | | | | | [phone] | +--------+--------+ + + + + Encounter Details +--------+---------+ + + + | Date | Type | Department | Care Team | Description | +--------+---------+ + + + | 02/11/ | Office | Neurology at | Marci Montoya, | Neuralgia, neuritis, | | 2013 | Visit | [facility] & | MD | and radiculitis, | | | | Healing [address] | | unspecified (Primary | | | | Ave Mailcode: [facility] | | Dx) | | | | [facility] | | | | | | and Healing, | | | | | | Building | | | | | | Floor [place], [place] | | | | | | [address] | | | | | | [phone] | | | +--------+---------+ + + + [...] + + + | Respiratory Rate | - | - | | + [...] + + + + | Height | - | - | | + + + + + | Body Mass Index | 25.06 | 11/05/2013 3:17 PM | | | | | PDT | | + + + + + documented in this encounter Progress Notes Marci Montoya MD - 02/11/2014 2:10 PM PSTFormatting of this note might be different fro m the original. NEUROLOGY NEW CLINIC NOTE Author: MARCI MONTOYA MD Date/Time: 02/11/2014 2:10 PM Requesting Attending: Carter Campos MD Reason for Consultation: cramping, pain and weakness. Patient is concerned for periodic par alysis. HPI: Neda Jordan is a 48 year old woman who is being seen at [facility] for evaluation of ramping, pain and weakness. About 10 years ago she had onset o f significant fatigue that would come in episodes lasting a day to a month at a time. This w as on and off for about five years. During an evaluation around that time she had an echo th at showed left heart failure that was previously unknown. More recently, she has had diffuse cramping but particularly in the legs. At times she cannot walk during severe cramping. Occ asionally during these episodes she has had various electrolyte abnormalities including hypo and hyperkalemia, hypo mag. Basically any electrolyte has been abnormal at time however the typical situation is that she will have a normal BMP during the episodes. These episodes ar e exacerbated by stress and heat. She tends to have 3-4 episodes per year typically lasting 3-4 days. She had an EMG/NCS 3-4 years ago according to the patient, they only did the legs. They did needle and NCS. She remembers this being normal. Also had MRI brain that she remem bers being normal. PMH: Heart failure 2007 Comment: idiopathic Home Meds: Current Medication List Name Sig ASPIRIN 81 MG CHEWABLE TABLET Take 81 mg by mouth once daily. CARVEDILOL 12.5 MG TABLET Take 12.5 mg by mouth two times daily. CETIRIZINE 10 MG TABLET Take 10 mg by mouth once daily. CYCLOBENZAPRINE 10 MG TABLET Take 10 mg by mouth two times daily. HYDROXYZINE PAMOATE 50 MG CAPSULE Take 1 capsule by mouth once daily. LEVONORGESTREL 20 MCG/24 HR (5 YEARS) INTRAUTERINE DEVICE 1 each by intrauterine route once . May be removed and replaced with a new unit at anytime during menstrual cycle; do not leav e any one system in place for > 5 years. LISINOPRIL 10 MG TABLET Take 10 mg by mouth two times daily. NORCO 5 MG-325 MG TABLET Take 1 tablet by mouth twice daily as needed. SPIRONOLACTONE 25 MG TABLET Take 25 mg by mouth once daily. VITAMIN D2 50,000 UNIT CAPSULE Take by mouth twice weekly (on Monday and Monday). . Allergies: Allergies Allergen Reactions Actifed [Triprolidine-Pseudoephedrine] Unknown Social History: History Social History Marital Status: Spouse Name: N/A Number of Children: N/A Years of Education: N/A Occupational History Not on file. 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 PE: BP 124/76 | Pulse 75 | Wt 72.576 kg (160 lb) | BMI 25.05 kg/(m^2) Admission Weight: Weight: 72.576 kg (160 lb) (02/11/14 1404) Constitutional: NAD Psychiatric: Mood/Affect: normal/appropriate Neurological: Mental Status: Level of consciousness: awake, alert Orientation: x4 Cranial Nerves: I: Not tested II: PERRL, visual sanabria full to confrontation bilaterally. III, IV, : Gaze conjugate, EOMI V: Sensation intact and symmetric to light touch V1-V3 VII: Symmetric facial motor function bilaterally VIII: Intact to finger rub bilaterally IX: Palate elevates symmetrically X: Normal cough XI: Normal shrug bilaterally XII: Tongue protrudes midline Motor: Normal tone in all groups. No drift. Delt Tri Bi WE WF DI HF HE KF KE APF ADF Left 5 5 5 5 5 5 5 5 5 5 5 5 Right 5 5 5 5 5 5 5 5 5 5 5 5 DTRs: Biceps Triceps Brachioradialis Knee Ankle Left 2+ 2+ 2+ 2+ 2+ Right 2+ 2+ 2+ 2+ 2+ Plantar response is flexors bilaterally Sensation: Light touch: Intact and symmetric in the bilateral upper and lower extremities. Temp: Intact and symmetric in the bilateral upper and lower extremities. Vibration: Intact and symmetric in the bilateral upper and lower extremities. Pin prick: Intact and symmetric in the bilateral upper and lower extremities. Proprioception: Intact and symmetric in the bilateral upper and lower extremities. Coordination: Finger to nose:normal Heel to knox:normal Gait: normal casual gait, able to toe, heel and tandem walk Assessment: Neda Jordan is a 48 year old woman who is being seen at [facility] for evaluation of ramping, pain and weakness. She has had a very through work up to this point. She was most concerned with periodic paralysis however her history is not consistent with this since they occur in both hyper and hypo kalemia and these disorder s have two different associated receptor abnormalities. Also, her symptoms have occurred wit h normal potassium. Her symptoms could be associated simply with electrolyte abnormalities. If her previous EMG results can be found and are normal then I would not perform any further work up. If they cannot be found a repeat EMG should be performed. We also discussed that h er symptoms could have an element of a psychogenic disorder. Interestingly this is what her thought was the problem. She will follow up as needed. Plan: - EMG if her previous results cannot be located - Follow up as needed I spent more than 60 minutes with this patient of which greater than 50% was spent counseli ng the patient. MARCI MONTOYA MD Dulite Machine Bluer Department of Neurology documented in this en counter Plan of Treatment Not on filedocumented as of this encounter Visit Diagnoses + + | Diagnosis | + + | Neuralgia, neuritis, and radiculitis, unspecified - Primary | + + documented in this encounter"
--- OUTSIDE RECORDS SUMMARY | ~2019-09-14 | XMS | Encounter Summary ---
Demographics + + + | Address | [address] | | | [place] [address] | + + + | Home Phone | | + + + | Preferred Language | Unknown | + + + | Marital Status | | + + + | Temple Affiliation | Unknown | + + + [...] Team Providers + +------+ + | Care Pharmacy Associate Name | Role | Phone | + +------+ + | Ronald Alvarez MD | PCP | | + +------+ + Encounter Details +--------+ + + + + | Date | Type | Department | Care Team | Description | +--------+ + + + + | 01/01/ | Lucrecia | Souleymane Goldman | Carter Campos MD | RE: Urine | | 2013 | Encounter | [facility] | [address] | | | | | Center at [facility] | [address] [place], | | | | | [address] | [place] [address] | | | | | [address] | [phone] | | | | | Physician's | | | | | | Pavilion, 1st floor | | | | | | [place], [place] | | | | | | [address] | | | | | | [phone] | | | +--------+ + + + [...]
--- OUTSIDE RECORDS SUMMARY | ~2019-09-14 | XMS | Encounter Summary ---
Demographics + + + | Address | [address] | | | [place] [address] | + + + | Home Phone | | + + + | Preferred Language | Unknown | + + + | Marital Status | | + + + | Muslim Affiliation | Unknown | + + + | Race | White | + + + | Ethnic Group | Not or | + + + Author + + + | Author | [facility] | + + + | Organization | [facility] | + + + | Address | Unknown | + + + | Phone | Unavailable | + + + Support + + +---------+ + | Name | Relationship | Address | Phone | + + +---------+ + | Arcadio Jordan | ECON | Unknown | | + + +---------+ + Care Team Providers + +------+ + | Care Peach Grower Name | Role | Phone | + [...] | | | | | Center at [facility] | [address] [place], | | | | | [address] | [place] [address] | | | | | [address] | [phone] | | | | | Physician's | | | | | | Pavilion, 1st floor | | | | | | [place], [place] | | | | | | [address] | | | | | | [phone] | | | +--------+ + + + [...] + | [facility] | [address] [facility] [address] | [place], [place] | | | | [address] | [address] | | + + + + + | [facility] | [address] [facility] | [place], [place] | | | | [address] | [address] | | + + + + + [...] [facility] | [address] | [place], [place] | | | | [address] | [address] | | + + + + + | [facility] | [address] | [place], [place] | | | | [address] | [address] | | + + + + + documented in this encounter Visit Diagnoses Not on filedocumented in this encounter"
--- OUTSIDE RECORDS SUMMARY | ~2019-09-14 | XMS | Encounter Summary ---
Demographics + + + | Address | [address] | | | [place] [address] | + + + | Home Phone | | + + + | Preferred Language | Unknown | + + + | Marital Status | | + + + | Jain Affiliation | Unknown | + + + | Race | White | + + + | Ethnic Group | Not or | + + + Author + + + | Author | [facility] | + + + | Organization | [facility] | + + + | Address | Unknown | + + + | Phone | Unavailable | + + + Support + + +---------+ + | Name | Relationship | Address | Phone | + + +---------+ + | Arcadio Jordan | ECON | Unknown | | + + +---------+ + Care Team Providers + +------+ + | Care Equipment Engineering Technician Name | Role | Phone | + +------+ + | Ronald Alvarez MD | PCP | | + +------+ + Encounter Details +--------+ + + + + | Date | Type | Department | Care Team | Description | +--------+ + + + + | 11/28/ | Keniat | Souleymane Goldman | Carter Campos MD | RE: Periodic | | 2013 | Encounter | [facility] | [address] | [place]leen | | | | Center at [facility] | [address] [place], | | | | | [address] | [place] [address] | | | | | [address] | [phone] | | | | | Physician's | | | | | | [address], 1st floor | | | | | | [place], [place] | | | | | | [address] | | | | | | [phone] | | | +--------+ + + + [...]
--- OUTSIDE RECORDS SUMMARY | ~2019-09-14 | XMS | Encounter Summary ---
Demographics + + + | Address | [address] | | | [place] [address] | + + + | Home Phone [...] + + + | Author | [facility] | + + + | Organization | [facility] | + + + | Address | Unknown | + + + | Phone | Unavailable | + + + Support + + +---------+ + | Name | Relationship | Address | Phone | + + +---------+ + | Arcadio Jordan | ECON | Unknown | | + + +---------+ + Care Team Providers + +------+ + | Care Sole Dyer Name | Role | Phone | + +------+ + | Ronald Alvarez MD | PCP | | + +------+ + Encounter Details +--------+ + + + + | Date | Type | Department | Care Team | Description | +--------+ + + + + | 11/22/ | Keniat | Souleymane Goldman | Carter Campos MD | cortisol | | 2013 | Encounter | [facility] | [address] | | | | | [facility] | [address] [place], | | | | | [address] | [place] [address] | | | | | [address] | [phone] | | | | | Physician's | | | | | | Pavilion, 1st floor | | | | | | [place], [place] | | | | | | [address] | | | | | | [phone] | | | +--------+ + + + [...]
--- OUTSIDE RECORDS SUMMARY | ~2019-09-14 | XMS | Encounter Summary ---
Demographics + + + | Address | [address] | | | [place] [address] | + + + | Home Phone | | + + + | Preferred Language | Unknown | + + + | Marital Status | | + + + | Jewish Affiliation | Unknown | + + + [...] Team Providers + +------+ + | Care Lumber Yard Worker Name | Role | Phone | + [...] | Center at [facility] | [address] [place], | | | | | [address] | [place] [address] | | | | | [address] | [phone] | | | | | Physician's | | | | | | [address], [facility] floor | | | | | | [place], [place] | | | | | | [address] | | | | | | [phone] | | | +--------+ + + + [...] | | | | | in the [employer] | | | | | | LaboratoryTest Directory | | | | | | (Wander (f. [employer])).Performed | | | | | | by [facility] | | | | | | [facility],[address] | | | | | | [facility], [place] [address] | | | | | | [phone]. | | | | | | [facility], Fei Harvey, | | | [...] [facility] | [address] | [place], [place] | | | [address] [facility] | | [address] | | + + + + + [...] by | | | | | | [employer],[address] | | | | | | [facility], [facility] [place] [facility] [place] | | | | | | [address] | | | | | | [phone].[employer]. | | | | | | deepak, [...] [facility] | [address] | [place], [place] | | | [address] [facility] | | [address] | | + + + + + [...] | | | LABORATORY | | | [facility] | | | SERVICES, | | | [...] the MDRD equation recommended by the | [facility] | | National Kidney Disease Education Program. [...] | + + + + + | [facility] | [address] | [place] [address] | | | SERVICES, CORE | [address] | | | + + + + + documented in this encounter Visit Diagnoses + + | Diagnosis | + + | Hypokalemia - Primary Hypopotassemia | + + documented in this encounter"
--- OUTSIDE RECORDS SUMMARY | ~2019-09-14 | XMS | Encounter Summary ---
Demographics + + + | Address | [address] | | | [place] [address] | + + + | Home Phone | | + + + | Preferred Language | Unknown | + + + | Marital Status | | + + + | Zoroastrian Affiliation | Unknown | + + + | Race | White | + + + | Ethnic Group | Not or | + + + Author + + + | Author | [facility] | + + + | Organization | [facility] | + + + | Address | Unknown | + + + | Phone | Unavailable | + + + Support + + +---------+ + | Name | Relationship | Address | Phone | + + +---------+ + | Arcadio Jordan | ECON | Unknown | | + + +---------+ + Care Team Providers + +------+ + | Care Instructional Technology Instructor Name | Role | Phone | + +------+ + | Ronald Alvarez MD | PCP | | + +------+ + Encounter Details +--------+ + + + + | Date | Type | Department | Care Team | Description | +--------+ + + + + | 01/25/ | MyChart | Souleymane Goldman | Carter Campos MD | RE: Neuro appt this | | 2013 | Encounter | [facility] | [address] | | | | | [facility] | [address] [place], | | | | | [address] | [place] [address] | | | | | [address] | [phone] | | | | | Physician's | | | | | | Pavilion, 1st floor | | | | | | [facility] [place] | | | | | | [address] | | | | | | [phone] | | | +--------+ + + + [...] glands | + + documented in this encounter"
--- OUTSIDE RECORDS SUMMARY | ~2019-09-14 | XMS | Encounter Summary ---
Demographics + + + | Address | [address] | | | [place] [address] | + + + | Home Phone | | + + + | Preferred Language | Unknown | + + + | Marital Status | | + + + | Scientology Affiliation | Unknown | + + + [...] Team Providers + +------+ + | Care Tool Turret Lathe Set Up Operator Name | Role | Phone | [...] | | | | | Center at [facility] | [address] [place], | | | | | [address] | [place] [address] | | | | | [address] | [phone] | | | | | Physician's | | | | | | Pavilion, 1st floor | | | | | | [place], [place] | | | | | | [address] | | | | | | [phone] | | | +--------+ + + + [...]
--- OUTSIDE RECORDS SUMMARY | ~2019-09-14 | XMS | Encounter Summary ---
Demographics + + + | Address | [address] | | | [place] [address] | + + + | Home Phone | | + + + | Preferred Language | Unknown | + + + | Marital Status | | + + + | Mandaen Affiliation | Unknown | + + + | Race | White | + + + | Ethnic Group | Not or | + + + Author + + + | Author | [facility] | + + + | Organization | [facility] | + + + | Address | Unknown | + + + | Phone | Unavailable | + + + Support + + +---------+ + | Name | Relationship | Address | Phone | + + +---------+ + | Arcadio Jordan | ECON | Unknown | | + + +---------+ + Care Team Providers + +------+ + | Care Recruiting Manager Name | Role | Phone | + +------+ + | Ronald Alvarez MD | PCP | | + +------+ + Encounter Details +--------+ + + + + | Date | Type | Department | Care Team | Description | +--------+ + + + + | 09/03/ | Keniat | Souleymane Goldman | Carter Campos MD | RE:CT Scan | | 2013 | Encounter | [facility] | [address] | | | | | Center at [facility] | [address] [place], | | | | | [address] | [place] [address] | | | | | [address] | [phone] | | | | | Physician's | | | | | | Pavilion, 1st floor | | | | | | [place], [place] | | | | | | [address] | | | | | | [phone] | | | +--------+ + + + [...]
--- OUTSIDE RECORDS SUMMARY | ~2019-09-14 | XMS | Encounter Summary ---
Demographics + + + | Address | [address] | | | [place] [address] | + + + | Home Phone | | + + + | Preferred Language | Unknown | + + + | Marital Status | | + + + | Episcopal Affiliation | Unknown | + + + | Race | White | + + + | Ethnic Group | Not or | + + + Author + + + | Author | [facility] | + + + | Organization | [facility] | + + + | Address | Unknown | + + + | Phone | Unavailable | + + + Support + + +---------+ + | Name | Relationship | Address | Phone | + + +---------+ + | Arcadio Jordan | ECON | Unknown | | + + +---------+ + Care Team Providers + +------+ + | Care Vehicle Body Maker Name | Role | Phone | + +------+ + | Ronald Alvarez MD | PCP | | + +------+ + Encounter Details +--------+ + + + + | Date | Type | Department | Care Team | Description | +--------+ + + + + | 12/10/ | Keniat | Souleymane Goldman | Carter Campos MD | RE:saliva | | 2013 | Encounter | [facility] | [address] | | | | | Center at [facility] | [address] [place], | | | | | [address] | [place] [address] | | | | | [address] | [phone] | | | | | Physician's | | | | | | Pavilion, 1st floor | | | | | | [place], [place] | | | | | | [address] | | | | | | [phone] | | | +--------+ + + + [...]
--- OUTSIDE RECORDS SUMMARY | ~2019-09-14 | XMS | Encounter Summary ---
Demographics + + + | Address | [address] | | | [place] [address] | + + + | Home Phone | | + + + | Preferred Language | Unknown | + + + | Marital Status | | + + + | Yarsani Affiliation | Unknown | + + + [...] Team Providers + +------+ + | Care Map Plotter Name | Role | Phone | + [...] | | | | | Procedures | [facility] | Mailcode: | | | | | CONSULT TO | Rd | [address] | | | | | NEUROLOGY | [place], [place] | for Health | | | | | | [address] | and Healing, | | | | | | Phone: | [facility] 1, | | | | | | [phone] | 8th Floor | | | | | | Fax: | [place], [place] | | | | | | [phone] | [address] | | | | | | | Phone: | | | | | | | [phone] | | | | | | | Fax: | | | | | | | [phone] | +--------+--------+ + + + + Encounter Details +--------+ + + + + | Date | Type | Department | Care Team | Description | +--------+ + + + + | 01/09/ | Keniat | Souleymane Goldman | Carter Campos MD | RE: next step | | 2013 | Encounter | [facility] | [address] | | | | | [facility] | [address] [place], | | | | | [address] | [place] [address] | | | | | [address] | [phone] | | | | | Physician's | | | | | | Pavilion, 1st floor | | | | | | [place], [place] | | | | | | [address] | | | | | | [phone] | | | +--------+ + + + [...]
--- OUTSIDE RECORDS SUMMARY | ~2019-09-14 | XMS | Encounter Summary ---
Demographics + + + | Address | [address] | | | [place] [address] | + + + | Home Phone | | + + + | Preferred Language | Unknown | + + + | Marital Status | | + + + | Presybeterian Affiliation | Unknown | + + + | Race | White | + + + | Ethnic Group | Not or | + + + Author + + + | Author | [facility] | + + + | Organization | [facility] | + + + | Address | Unknown | + + + | Phone | Unavailable | + + + Support + + +---------+ + | Name | Relationship | Address | Phone | + + +---------+ + | Arcadio Jordan | ECON | Unknown | | + + +---------+ + Care Team Providers + +------+ + | Care Project Manager/Design Manager Name | Role | Phone | [...] | | | | | Procedures | [facility] | Mailcode: | | | | | CONSULT TO | Rd | [facility] | | | | | NEUROLOGY | [place], [place] | for Health | | | | | | [address] | and Healing, | | | | | | Phone: | [address], | | | | | | [phone] | 8th Floor | | | | | | Fax: | [place], [place] | | | | | | [phone] | [address] | | | | | | | Phone: | | | | | | | [phone] | | | | | | | Fax: | | | | | | | [phone] | +--------+--------+ + + + + Encounter Details +--------+---------+ + + + | Date | Type | Department | Care Team | Description | +--------+---------+ + + + | 02/11/ | Office | Neurology at | Marci Montoya, | Neuralgia, neuritis, | | 2013 | Visit | [facility] & | MD | and radiculitis, | | | | Healing [address] | | unspecified (Primary | | | | Ave Mailcode: [facility] | | Dx) | | | | [facility] | | | | | | and Healing, | | | | | | Building | | | | | | Floor [place], [place] | | | | | | [address] | | | | | | [phone] | | | +--------+---------+ + + + [...] old woman who is being seen at [facility] for evaluation of [...] No narrative on file 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 MARCI MONTOYA MD Security Systems Specialist Department of Neurology documented in this en counter Plan of Treatment Not on filedocumented as of this encounter Visit Diagnoses + + | Diagnosis | + + | Neuralgia, neuritis, and radiculitis, unspecified - Primary | + + documented in this encounter"
--- OUTSIDE RECORDS SUMMARY | ~2019-09-14 | XMS | Encounter Summary ---
Demographics + + + | Address | [address] | | | [place] [address] | + + + | Home Phone | | + + + | Preferred Language | Unknown | + + + | Marital Status | | + + + | Taoism Affiliation | Unknown | + + + | Race | White | + + + | Ethnic Group | Not or | + + + Author + + + | Author | [facility] | + + + | Organization | [facility] | + + + | Address | Unknown | + + + | Phone | Unavailable | + + + Support + + +---------+ + | Name | Relationship | Address | Phone | + + +---------+ + | Arcadio Jordan | ECON | Unknown | | + + +---------+ + Care Team Providers + +------+ + | Care Deaf Teacher Name | Role | Phone | + [...] harleen | | | | Center at [facility] | [address] [place], | | | | | [address] | [place] [address] | | | | | [address] | [phone] | | | | | Physician's | | | | | | [address], 1st floor | | | | | | [place], [place] | | | | | | [address] | | | | | | [phone] | | | +--------+ + + + [...]
--- OUTSIDE RECORDS SUMMARY | ~2019-09-14 | XMS | Encounter Summary ---
Demographics + + + | Address | [address] | | | [place] [address] | + + + | Home Phone | | + + + | Preferred Language | Unknown | + + + | Marital Status | | + + + | Confucianist Affiliation | Unknown | + + + | Race | Unknown | + + + | Ethnic Group | Unknown | + + + Author + + + | Author | [facility] | | | and [place] | + + + | Organization | [facility] | | | and [place] | + + + | Address | Unknown | + + + | Phone | Unavailable | + + + Support + + + + + | Name | Relationship | Address | Phone | + + + + + | Arcadio Jordan | ECON | [address] | | | | | [place] | | | | | [address] | | + + + + + Care Team Providers + +------+ + | Care Voltage Regulator Assembler Name | Role | Phone | + +------+ + PCP | Unavailable | + +------+ + Encounter Details +--------+ + + + + | Date | Type | Department | Care Team | Description | +--------+ + + + + | 07/28/ | Hospital | [facility] | Anthony Cooley MD | Unspecified Chest | | 2008 | Encounter | [facility] | | Pain | | | | CLINICAL DECISION | | | | | | [address] | | | | | | [place], [place] | | | | | | [address] | | | | | | [phone] | | | +--------+ + + + [...] | + +--------+ + + + | CV CARDIAC PROCEDURE | Routin | 07/28/2008 | | Results for this | | | e | 11:09 AM | | procedure are in the | | | | PDT | | results section. | + +--------+ + + + documented in this encounter Results CV CARDIAC PROCEDURE (07/28/2008 11:09 AM PDT) + + | Specimen | + + | | + + + + + | Narrative | Performed At | + + + | [id number] | | | Page 1 CARDIOLOGY | | | [facility] [address]/ | | | OPS [facility] | | | CENTER NAME: [place] [address] | | | | | | | | | DATE OF : 1965 ORDER NUMBER: | | | [id number] EXAM DATE/TIME: 07/28/2008 09:20 A ORDERING PHYSICIAN: | | | ANTHONY COOLEY ORDER DETAIL: [id number] / / HCL EXAM DESCRIPTION: CCL | | | HEART CATH LT RETRO PERC | | | | | | PROCEDURES 1. Selective coronary angiography. 2. Left heart | | | catheterization. 3. Left ventriculography. 4. Right femoral | | | arteriogram for possible closure device deployment. 5. Deployment of | | | a 6-Marshallese Angio-Seal deployment at the right arteriotomy site. | | | INDICATIONS The patient is a very pleasant 43-year-old | | | lady who was recently thought to have congestive heart failure | | | secondary to left ventricular systolic dysfunction. The patient was | | | subsequently referred to me for a cardiac catheterization in order to | | | rule out coronary artery disease and ischemic cardiomyopathy. | | | DESCRIPTION OF PROCEDURE The patient presented to the cardiac | | | catheterization lab in the fasting state. An informed consent was | | | obtained from the patient after explaining the risks and benefits of | | | the procedures, as well as alternative options. The right groin | | | area was prepped and draped in the usual sterile fashion. Local | | | anesthesia was given to the right groin with 1% lidocaine. A 6-Marshallese | | | vascular sheath was inserted in the right femoral artery using the | | | modified Seldinger technique. A JL-4 catheter was advanced over the | | | wire, under fluoroscopic guidance, and engaged selectively with the | | | ostium of the left main coronary artery. Contrast was injected. | | | Multiple angiograms were obtained in different angles. The catheter | | | was exchanged over a wire to a JR-4 catheter, which was engaged | | | selectively with the ostium of the right coronary artery. Contrast was | | | injected. Multiple angiograms were obtained in different angles. | | | The catheter was exchanged over the wire to a pigtail catheter that | | | was introduced into the left ventricular cavity. A left | | | ventriculogram was obtained in the 30-degree right anterior oblique | | | (HAWKINS) projection using 36 mL of contrast. Subsequently, the pigtail | | | was retrieved over a wire. A right femoral arteriogram was performed | | | via the side port of the vascular sheath. The sheath was pulled, and | | | a 6-Marshallese Angio-Seal was deployed at the right femoral arteriotomy | | | site successfully. Hemostasis was achieved in the catheterization | | | lab. The patient was transferred out of the catheterization lab in | | | stable condition. FINDINGS HEMODYNAMICS Aortic pressure was | | | 136/67, with a mean aortic pressure of 94. Left ventricular pressure | | | 137/12, with a left ventricular end-diastolic pressure of 12. There | | | was no significant transaortic pressure gradient on catheter | | | pullback. CORONARY ANGIOGRAPHY 1. The left main was normal. 2. | | | The left anterior descending (LAD) was normal. 3. The left circumflex | | | was normal. 4. The right coronary artery (RCA) was normal. LEFT | | | VENTRICULOGRAM Revealed xkto-au-msusnyzz left ventricular systolic | | | dysfunction with an ejection fraction of 40%. Mild global hypokinesis | | | was noted. ESTIMATED BLOOD LOSS Less than 50 mL. CONCLUSION | | | 1. Angiographically-normal coronary arteries. 2. Zeee-qv-zwstaheg | | | left ventricular systolic dysfunction with a visually estimated | | | ejection fraction of 40% with global hypokinesis in the HAWKINS | | | projection. 3. Michelle left ventricular end-diastolic pressure. | | | RECOMMENDATIONS 1. Medical therapy for nonischemic cardiomyopathy. | | | 2. Risk factor modification. Read by ANTHONY COOLEY MD | | | 07/29/2008 09:31 A Electronically Signed by ANTHONY COOLEY MD | | | 08/19/2008 09:34 P A | | | 03:06 P ST//[id number]/ cc: ANTHONY COOLEY MD | | + + + + + | Procedure Note | + + | Nehemias Figueroa Conversion - 11/05/2018 4:49 AM PDT | | [id number] Page 1 | | CARDIOLOGY CDU 399[address]/ | | OPS | | [facility] NAME: KRISTY JORDAN | | [place] [address] | | | | DATE OF : 1965 | | | | ORDER NUMBER: [id number] | | EXAM DATE/TIME: 07/28/2008 09:20 A | | ORDERING PHYSICIAN: ANTHONY COOLEY | | ORDER DETAIL: [id number] / / HCL | | EXAM DESCRIPTION: CCL HEART CATH LT RETRO PERC | | | | PROCEDURES | | 1. Selective coronary angiography. | | 2. Left heart catheterization. | | 3. Left ventriculography. | | 4. Right femoral arteriogram for possible closure device deployment. | | 5. Deployment of a 6-Marshallese Angio-Seal deployment at the right | | arteriotomy site. | | | | INDICATIONS | | The patient is a very pleasant 43-year-old lady who was | | recently thought to have congestive heart failure secondary to left | | ventricular systolic dysfunction. The patient was subsequently referred | | to [place] for a cardiac catheterization in order to rule out coronary artery | | disease and ischemic cardiomyopathy. | | | | DESCRIPTION OF PROCEDURE | | The patient presented to the cardiac catheterization lab in the fasting | | state. An informed consent was obtained from the patient after | | explaining the risks and benefits of the procedures, as well as | | alternative options. | | | | The right groin area was prepped and draped in the usual sterile | | fashion. Local anesthesia was given to the right groin with 1% | | lidocaine. A 6-Marshallese vascular sheath was inserted in the right femoral | | artery using the modified Seldinger technique. A JL-4 catheter was | | advanced over the wire, under fluoroscopic guidance, and engaged | | selectively with the ostium of the left main coronary artery. Contrast | | was injected. Multiple angiograms were obtained in different angles. The | | catheter was exchanged over a wire to a JR-4 catheter, which was engaged | | selectively with the ostium of the right coronary artery. Contrast was | | injected. Multiple angiograms were obtained in different angles. | | | | The catheter was exchanged over the wire to a pigtail catheter that was | | introduced into the left ventricular cavity. A left ventriculogram was | | obtained in the 30-degree right anterior oblique (HAWKINS) projection using | | 36 mL of contrast. Subsequently, the pigtail was retrieved over a wire. | | A right femoral arteriogram was performed via the side port of the | | vascular sheath. The sheath was pulled, and a 6-Marshallese Angio-Seal was | | deployed at the right femoral arteriotomy site successfully. Hemostasis | | was achieved in the catheterization lab. The patient was transferred out | | of the catheterization lab in stable condition. | | | | FINDINGS | | | | HEMODYNAMICS | | Aortic pressure was 136/67, with a mean aortic pressure of 94. | | Left ventricular pressure 137/12, with a left ventricular end-diastolic | | pressure of 12. | | There was no significant transaortic pressure gradient on catheter | | pullback. | | | | CORONARY ANGIOGRAPHY | | 1. The left main was normal. | | 2. The left anterior descending (LAD) was normal. | | 3. The left circumflex was normal. | | 4. The right coronary artery (RCA) was normal. | | | | LEFT VENTRICULOGRAM | | Revealed lcrb-rd-olqfycxs left ventricular systolic dysfunction with an | | ejection fraction of 40%. Mild global hypokinesis was noted. | | | | ESTIMATED BLOOD LOSS | | Less than 50 mL. | | | | CONCLUSION | | 1. Angiographically-normal coronary arteries. | | 2. Dapa-ay-nonooogn left ventricular systolic dysfunction with a | | visually estimated ejection fraction of 40% with global hypokinesis | | in the HAWKINS projection. | | 3. Michelle left ventricular end-diastolic pressure. | | | | RECOMMENDATIONS | | 1. Medical therapy for nonischemic cardiomyopathy. | | 2. Risk factor modification. | | | | | | Read by | | ANTHONY COOLEY MD 07/29/2008 09:31 A | | Electronically Signed by | | ANTHONY COOLEY MD 08/19/2008 09:34 P | | | | A | | P | | ST/[id number]/ | | cc: ANTHONY COOLEY MD | + + documented in this encounter Visit Diagnoses + + | Diagnosis | + + | Chest pain, unspecified | + + documented in this encounter"
--- OUTSIDE RECORDS SUMMARY | ~2019-09-14 | XMS | Encounter Summary ---
Demographics + + + | Address | [address] | | | [place] [address] | + + + | Home Phone | | + + + | Preferred Language | Unknown | + + + | Marital Status | | + + + | Tenriism Affiliation | Unknown | + + + [...] Team Providers + +------+ + | Care Concrete Hopper Operator Name | Role | Phone | + +------+ + | Ronald Alvarez MD | PCP | | + +------+ + Encounter Details +--------+ + + + + | Date | Type | Department | Care Team | Description | +--------+ + + + + | 11/20/ | Lucrecia | Souleymane Goldman | Carter Campos MD | RE:cortisol | | 2013 | Encounter | Diabetes [facility] | [address] | | | | | Center at [facility] | [address] [place], | | | | | [address] | [place] [address] | | | | | [address] | [phone] | | | | | Physician's | | | | | | Pavilion, 1st floor | | | | | | [place], [place] | | | | | | [address] | | | | | | [phone] | | | +--------+ + + + [...]
--- OUTSIDE RECORDS SUMMARY | ~2019-09-14 | XMS | Encounter Summary ---
Demographics + + + | Address | [address] | | | [place] [address] | + + + | Home Phone | | + + + | Preferred Language | Unknown | + + + | Marital Status | | + + + | Lutheran Affiliation | Unknown | + + + [...] Team Providers + +------+ + | Care Stull Installer Name | Role | Phone | + +------+ + | Ronald Alvarez MD | PCP | | + +------+ + Reason for Visit Diagnostic Testing (Routine) +--------+--------+ + + + [...] ABDOMEN | Anatoliy Dowling | [address] | | | | | & [address] | [address] | [facility], | | | | | IV CONTRAST | [place], [place] | 10th Floor | | | | | [address] | [address] | [facility] [place] | | | | | & PELVIS W/O | Phone: | [phone] | | | | | CONTRAST | [phone] | Phone: | | | | | | Fax: | [phone] | | | | | | [phone] | Fax: | | | | | | | [phone] | +--------+--------+ + + + + Encounter Details +--------+ + + + + | Date | Type | Department | Care Team | Description | +--------+ + + + + | 09/03/ | Hospital | Diagnostic Imaging | | | | 2013 | Encounter | Services at [facility] | | | | | | [address] | | | | | | [address] [facility] | | | | | | [address] | | | | | | [place], [place] | | | | | | [address] | | | | | | [phone] | | | +--------+ + + + [...] + + documented as of this encounter Medications at Time of Discharge + + + +---------+ + + | Medication | Sig | Dispensed | Refills | Start | End Date | | | | | | Date | | + + + +---------+ + + | aspirin chewable | Take 81 mg by mouth | | 0 | | | | 81 mg oral | once daily. | | | | | | tablet,chewable | | | | | | + + + +---------+ + + | CARVEDILOL 12.5 mg | Take 12.5 mg by | | 0 | 08/02/19 | | | oral tablet | mouth two times | | | 14 | | | | daily. | | | | | + + + +---------+ + + | cetirizine 10 mg | Take 10 mg by mouth | | 0 | | | | oral tablet | once daily. | | | | | + + + +---------+ + + | CYCLOBENZAPRINE 10 | Take 10 mg by mouth | | 0 | 07/23/19 | | | mg oral tablet | two times daily. | | | 14 | | + + + +---------+ + + | hydrOXYzine | Take 1 capsule by | | 0 | 08/14/19 | | | pamoate 50 mg oral | mouth once daily. | | | 14 | | | capsule | | | | | | + + + +---------+ + + | LISINOPRIL 10 mg | Take 10 mg by mouth | | 0 | 08/06/19 | | | oral tablet | two times daily. | | | 14 | | + + + +---------+ + + | NORCO 5-325 mg | Take 1 tablet by | | 0 | 07/10/19 | | | oral tablet | mouth twice daily as | | | 14 | | | | needed. | | | | | + + + +---------+ + + | VITAMIN D2 50,000 | Take by mouth twice | | 0 | 07/23/19 | | | unit oral capsule | weekly (on Monday | | | 14 | | | | and Monday). | | | | | + + + +---------+ + + documented as of this encounter Plan of Treatment Not on filedocumented as of this encounter Visit Diagnoses + + | Diagnosis | + + | Hypokalemia Hypopotassemia | + + documented in this encounter"
--- OUTSIDE RECORDS SUMMARY | ~2019-09-14 | XMS | Encounter Summary ---
Demographics + + + | Address | [address] | | | [place] [address] | + + + | Home Phone | | + + + | Preferred Language | Unknown | + + + | Marital Status | | + + + | Faith Affiliation | Unknown | + + + [...] Team Providers + +------+ + | Care General Labor Forklift Operator Name | Role | Phone | + +------+ + | Ronald Alvarez MD | PCP | | + +------+ + Encounter Details +--------+ + + + + | Date | Type | Department | Care Team | Description | +--------+ + + + + | 09/19/ | Lucrecia | Souleymane Goldman | Carter Campos MD | RE:labs | | 2013 | Encounter | Diabetes [facility] | [address] | | | | | Center at [facility] | [address] [place], | | | | | [address] | [place] [address] | | | | | [address] | [phone] | | | | | Physician's | | | | | | Pavilion, 1st floor | | | | | | [place], [place] | | | | | | [address] | | | | | | [phone] | | | +--------+ + + + [...]
--- OUTSIDE RECORDS SUMMARY | ~2019-09-14 | XMS | Encounter Summary ---
Demographics + + + | Address | [address] | | | [place] [address] | + + + | Home Phone [...] Team Providers + +------+ + | Care Office Mail Clerk Name | Role | Phone | + [...] Rd | | | | | | [place], [place] | | | | | | [address] | | | +--------+ + + + [...]
--- OUTSIDE RECORDS SUMMARY | ~2019-09-14 | XMS | Encounter Summary ---
Demographics + + + | Address | [address] | | | [place] [address] | + + + | Home Phone [...] Team Providers + +------+ + | Care Tender Coordinator Name | Role | Phone | + +------+ + | Ronald Alvarez MD | PCP | | + +------+ + Encounter Details +--------+ + + + + | Date | Type | Department | Care Team | Description | +--------+ + + + + | 11/25/ | Ken[place] | Souleymane Goldman | Carter Campos MD | RE: Saliva/Cotton | | 2013 | Encounter | Diabetes Health | [address] | test | | | | Center at [facility] | [address] [place], | | | | | [address] | [place] [address] | | | | | [address] | [phone] | | | | | Physician's | | | | | | Pavilion, 1st floor | | | | | | [place], [place] | | | | | | [address] | | | | | | [phone] | | | +--------+ + + + [...]
--- OUTSIDE RECORDS SUMMARY | ~2019-09-14 | XMS | Encounter Summary ---
Demographics + + + | Address | [address] | | | [place] [address] | + + + | Home Phone [...] + + + | Author | [facility] | + + + | Organization | [facility] | + + + | Address | Unknown | + + + | Phone | Unavailable | + + + Support + + +---------+ + | Name | Relationship | Address | Phone | + + +---------+ + | Arcadio Jordan | ECON | Unknown | | + + +---------+ + Care Team Providers + +------+ + | Care Application Developer Manager Name | Role | Phone | [...] | [facility] | [address] [place], | | | | | [address] | [place] [address] | | | | | [address] | [phone] | | | | | Physician's | | | | | | Pavilion, 1st floor | | | | | | [facility] [place] | | | | | | [address] | | | | | | [phone] | | | +--------+ + + + [...]
--- OUTSIDE RECORDS SUMMARY | ~2019-09-14 | XMS | Encounter Summary ---
Demographics + + + | Address | [address] | | | [place] [address] | + + + | Home Phone | | + + + | Preferred Language | Unknown | + + + | Marital Status | | + + + | Anabaptist Affiliation | Unknown | + + + | Race | White | + + + | Ethnic Group | Not or | + + + Author + + + | Author | [facility] | + + + | Organization | [facility] | + + + | Address | Unknown | + + + | Phone | Unavailable | + + + Support + + +---------+ + | Name | Relationship | Address | Phone | + + +---------+ + | Arcadio Jordan | ECON | Unknown | | + + +---------+ + Care Team Providers + +------+ + | Care Disk Operator Name | Role | Phone | [...] | [facility] | [address] [place], | | | | | [address] | [place] [address] | | | | | [address] | [phone] | | | | | Physician's | | | | | | Pavilion, 1st floor | | | | | | [place], [place] | | | | | | [address] | | | | | | [phone] | | | +--------+ + + + [...] | | + +---------+ + + | [facility] DEPARTMENT | | | | | RADIOLOGY | | | | + +---------+ + + documented in this encounter Visit Diagnoses Not on filedocumented in this encounter"
--- OUTSIDE RECORDS SUMMARY | ~2019-09-14 | XMS | Encounter Summary ---
Demographics + + + | Address | [address] | | | [place] [address] | + + + | Home Phone | | + + + | Preferred Language | Unknown | + + + | Marital Status | | + + + | Synagogue Affiliation | Unknown | + + + | Race | White | + + + | Ethnic Group | Not or | + + + Author + + + | Author | [facility] | + + + | Organization | [facility] | + + + | Address | Unknown | + + + | Phone | Unavailable | + + + Support + + +---------+ + | Name | Relationship | Address | Phone | + + +---------+ + | Arcadio Jordan | ECON | Unknown | | + + +---------+ + Care Team Providers + +------+ + | Care Accounting Advisory Services Manager Name | Role | Phone | + +------+ + | Ronald Alvarez MD | PCP | | + +------+ + Encounter Details +--------+ + + + + | Date | Type | Department | Care Team | Description | +--------+ + + + + | 08/13/ | Lucrecia | Souleymane Goldman | Carter Campos MD | RE: New pt | | 2013 | Encounter | [facility] | [address] | | | | | Center at [facility] | [address] [place], | | | | | [address] | [place] [address] | | | | | [address] | [phone] | | | | | Physician's | | | | | | Pavilion, 1st floor | | | | | | [place], [place] | | | | | | [address] | | | | | | [phone] | | | +--------+ + + + [...]
--- OUTSIDE RECORDS SUMMARY | ~2019-09-14 | XMS | Encounter Summary ---
Demographics + + + | Address | [address] | | | [place] [address] | + + + | Home Phone | | + + + | Preferred Language | Unknown | + + + | Marital Status | | + + + | Judaism Affiliation | Unknown | + + + | Race | White | + + + | Ethnic Group | Not or | + + + Author + + + | Author | [facility] | + + + | Organization | [facility] | + + + | Address | Unknown | + + + | Phone | Unavailable | + + + Support + + +---------+ + | Name | Relationship | Address | Phone | + + +---------+ + | Arcadio Jordan | ECON | Unknown | | + + +---------+ + Care Team Providers + +------+ + | Care Beer Cooler Name | Role | Phone | + [...] | [facility] | [address] [place], | | | | | [address] | [place] [address] | | | | | [address] | [phone] | | | | | Physician's | | | | | | Pavilion, 1st floor | | | | | | [place], [place] | | | | | | [address] | | | | | | [phone] | | | +--------+ + + + [...]
--- OUTSIDE RECORDS SUMMARY | ~2019-09-14 | XMS | Encounter Summary ---
Demographics + + + | Address | [address] | | | [place] [address] | + + + | Home Phone | | + + + | Preferred Language | Unknown | + + + | Marital Status | | + + + | Christian Affiliation | Unknown | + + + | Race | White | + + + | Ethnic Group | Not or | + + + Author + + + | Author | [facility] | + + + | Organization | [facility] | + + + | Address | Unknown | + + + | Phone | Unavailable | + + + Support + + +---------+ + | Name | Relationship | Address | Phone | + + +---------+ + | Arcadio Jordan | ECON | Unknown | | + + +---------+ + Care Team Providers + +------+ + | Care Cotton Program Technician Name | Role | Phone | + +------+ + | Ronald Alvarez MD | PCP | | + +------+ + Encounter Details +--------+ + + + + | Date | Type | Department | Care Team | Description | +--------+ + + + + | 10/21/ | Lucrecia | Souleymane Goldman | Carter Campos MD | RE: Appt | | 2013 | Encounter | Diabetes [facility] | [address] | | | | | Center at [facility] | [address] [place], | | | | | [address] | [place] [address] | | | | | [address] | [phone] | | | | | Physician's | | | | | | Pavilion, 1st floor | | | | | | [place], [place] | | | | | | [address] | | | | | | [phone] | | | +--------+ + + + [...]
--- OUTSIDE RECORDS SUMMARY | ~2019-09-14 | XMS | Encounter Summary ---
Demographics + + + | Address | [address] | | | [place] [address] | + + + | Home Phone | | + + + | Preferred Language | Unknown | + + + | Marital Status | | + + + | Mandaeism Affiliation | Unknown | + + + | Race | White | + + + | Ethnic Group | Not or | + + + Author + + + | Author | [facility] | + + + | Organization | [facility] | + + + | Address | Unknown | + + + | Phone | Unavailable | + + + Support + + +---------+ + | Name | Relationship | Address | Phone | + + +---------+ + | Arcadio Jordan | ECON | Unknown | | + + +---------+ + Care Team Providers + +------+ + | Care Weed Cooking Operator Name | Role | Phone | + +------+ + | Ronald Alvarez MD | PCP | | + +------+ + Encounter Details +--------+ + + + + | Date | Type | Department | Care Team | Description | +--------+ + + + + | 08/19/ | MyChart | Souleymane Goldman | Carter Campos MD | RE: CT appt made | | 2013 | Encounter | [facility] | [address] | | | | | Center at [facility] | [address] [place], | | | | | [address] | [place] [address] | | | | | [address] | [phone] | | | | | Physician's | | | | | | Pavilion, 1st floor | | | | | | [place], [place] | | | | | | [address] | | | | | | [phone] | | | +--------+ + + + [...]
--- OUTSIDE RECORDS SUMMARY | ~2019-09-14 | XMS | Encounter Summary ---
Demographics + + + | Address | [address] | | | [place] [address] | + + + | Home Phone [...] Team Providers + +------+ + | Care Collection Officer Name | Role | Phone | + +------+ + | Ronald Alvarez MD | PCP | | + +------+ + Encounter Details +--------+ + + + + | Date | Type | Department | Care Team | Description | +--------+ + + + + | 11/27/ | Lucrecia | Souleymane Goldman | Carter Campos MD | RE: question | | 2013 | Encounter | Diabetes [facility] | [address] | | | | | Center at [facility] | [address] [place], | | | | | [address] | [place] [address] | | | | | [address] | [phone] | | | | | Physician's | | | | | | Pavilion, 1st floor | | | | | | [place], [place] | | | | | | [address] | | | | | | [phone] | | | +--------+ + + + [...] + | Diagnosis | + + | Flushing - Primary | + + documented in this encounter"
--- OUTSIDE RECORDS SUMMARY | ~2019-09-14 | XMS | Encounter Summary ---
Demographics + + + | Address | [address] | | | [place] [address] | + + + | Home Phone | | + + + | Preferred Language | Unknown | + + + | Marital Status | | + + + | Cheondoism Affiliation | Unknown | + + + | Race | White | + + + | Ethnic Group | Not or | + + + Author + + + | Author | [facility] | + + + | Organization | [facility] | + + + | Address | Unknown | + + + | Phone | Unavailable | + + + Support + + +---------+ + | Name | Relationship | Address | Phone | + + +---------+ + | Arcadio Jordan | ECON | Unknown | | + + +---------+ + Care Team Providers + +------+ + | Care Training And Development Specialist Name | Role | Phone | [address] | | | | | [facility] | [address] [place], | | | | | [address] | [place] [address] | | | | | [address] | [phone] | | | | | Physician's | | | | | | Pavilion, 1st floor | | | | | | [place], [place] | | | | | | [address] | | | | | | [phone] | | | +--------+ + + + [...]
--- OUTSIDE RECORDS SUMMARY | ~2019-09-14 | XMS | Encounter Summary ---
Demographics + + + | Address | [address] | | | [place] [address] | + + + | Home Phone | | + + + | Preferred Language | Unknown | + + + | Marital Status | | + + + | Moravian Affiliation | Unknown | + + + [...] Team Providers + +------+ + | Care Boathouse Keeper Name | Role | Phone | + +------+ + | Ronald Alvarez MD | PCP | | + +------+ + Encounter Details +--------+------+ + + + | Date | Type | Department | Care Team | Description | +--------+------+ + + + | 11/05/ | Lab | Laboratory at [facility] | | Adrenal nodule (HCC) | | 2013 | | [address] | | | | | | Loop Physician's | | | | | | [place], [address] [place] [address] | | | | | | [place], [place] | | | | | | [address] | | | | | | [phone] | | | +--------+------+ + + + [...] | + +--------+ + + + | ACTH, PLASMA | Routin | 11/05/2013 | Adrenal nodule | Results for this | | | e | 3:36 PM | (HCC) | procedure are in the | | | | PDT | | results section. | + +--------+ + + + | COMPLETE METABOLIC | Routin | 11/05/2013 | Adrenal nodule | Results for this | | SET | e | 3:36 PM | (HCC) | procedure are in the | | (NA,K,CL,CO2,BUN,CRE | | PDT | | results section. | | AT,GLUC,CA,AST,ALT,B | | | | | | KARINA TOTAL,ALK | | | | | | PHOS,ALB,PROT TOTAL) | | | | | + +--------+ + + + | METANEPHRINES, | Routin | 11/05/2013 | Adrenal nodule | Results for this | | PLASMA | e | 3:36 PM | (HCC) | procedure are in the | | | | PDT | | results section. | + +--------+ + + + | CORTISOL, SERUM | Routin | 11/05/2013 | Adrenal nodule | Results for this | | | e | 3:36 PM | (HCC) | procedure are in the | | | | PDT | | results section. | + +--------+ + + + documented in this encounter Results CORTISOL, SERUM (11/05/2013 3:36 PM PDT) + +---------+ + + + | Component | Value | Ref Range | Performed | Pathologist | | | | | At | Signature | + +---------+ + + + | CORTISOL, | 5.2 (L) | 7.0 - 23.0 | [facility] | | | TOTAL SERUM | | mcg/dL | [facility] | | | | | | [place] | | + +---------+ + + + + + | Specimen | + + | Blood - Blood | + + + + + + + | Performing | Address | City/State/Zipcode | Phone Number | | Organization | | | | + + + + + | [facility] | [address] | [place] [address] | | | [place] | | | | + + + [...] + | [facility] | [address] | [place] [address] | | | [place] | | | [...] B: | | | | | | [employer] | | | | | | by [address],[address] | | | | | | [place] | | | | | | [address] | | | | | | [phone].[employer]. | | | | | | Fei sotelo, | | | | | | Aakash [...] [facility] | [address] | [place], [place] | | | UNIV [facility] - INTFC | | [address] | | + + + + + [...] | | | LABORATORY | | | HUNGARIAN | | | SERVICES, | | | [...] + + + + + | [facility] | [address] | [place] [address] | | | SERVICES, CORE | [address] | | | + + + + + documented in this encounter Visit Diagnoses + + | Diagnosis | + + | Adrenal nodule (HCC) Other specified disorders of adrenal glands | + + documented in this encounter"
--- OUTSIDE RECORDS SUMMARY | ~2019-09-14 | XMS | Encounter Summary ---
Demographics + + + | Address | [address] | | | [place] [address] | + + + | Home Phone [...] Team Providers + +------+ + | Care Swing Saw Operator Name | Role | Phone | [...] | | | | | Center at [facility] | [address] [place], | | | | | [address] | [place] [address] | | | | | [address] | [phone] | | | | | Physician's | | | | | | Pavilion, 1st floor | | | | | | [place], [place] | | | | | | [address] | | | | | | [phone] | | | +--------+ + + + [...]
--- OUTSIDE RECORDS SUMMARY | ~2019-09-14 | XMS | Encounter Summary ---
Demographics + + + | Address | [address] | | | [place] [address] | + + + | Home Phone [...] Team Providers + +------+ + | Care Service Department Manager Name | Role | Phone | [...] | | | | | | Wilian, [address] [place] [address] | | | | | | [place], [place] | | | | | | [address] | | | | | | [phone] | | | +--------+------+ + + + [...] | | | | | in the [employer] | | | | | | LaboratoryTest Directory | | | | | | (Placeword).Performed | | | | | | by [facility] | | | | | | [facility],[address] | | | | | | [place] [address] | | | | | | [phone].[employer]. | | | | | | [facility], Fei Harvey, | | | | | [...] [facility] | [address] | [place], [place] | | | UN[facility] [place] - INT[place] | | [address] | | + + + + + [...] by | | | | | | [employer],[address] | | | | | | Tammy Burgess, [facility],[place] | | | | | | [address] | | | | | | [phone].[employer]. | | | | | | deepak, [...] [facility] | [address] | [place], [place] | | | UN[facility] [place] | | [address] | | + + + + + [...] | | | LABORATORY | | | J[facility]AN[facility] | | | SERVICES, | | | [...] the MDRD equation recommended by the | IASU | | National Kidney Disease Education Program. [...] | + + + + + | [facility] | [address] | [place] [address] | | | SERVICES, PATRIC | [address] | | | + + + + + documented in this encounter Visit Diagnoses + + | Diagnosis | + + | Hypokalemia Hypopotassemia | + + documented in this encounter"
--- OUTSIDE RECORDS SUMMARY | ~2019-09-14 | XMS | Encounter Summary ---
Demographics + + + | Address | [address] | | | [place] [address] | + + + | Home Phone [...] + + + | Author | [facility] | + + + | Organization | [facility] | + + + | Address | Unknown | + + + | Phone | Unavailable | + + + Support + + +---------+ + | Name | Relationship | Address | Phone | + + +---------+ + | Arcadio Jordan | ECON | Unknown | | + + +---------+ + Care Team Providers + +------+ + | Care Dispensary Attendant Name | Role | Phone | + +------+ + | Ronald Alvarez MD | PCP | | + +------+ + Encounter Details +--------+ + + + + | Date | Type | Department | Care Team | Description | +--------+ + + + + | 12/30/ | Documentati | Souleymane Goldman | Carter Campos MD | | | 2013 | on | [facility] | [address] | | | | | Center at [facility] | [address] [place], | | | | | [address] | [place] [address] | | | | | [address] | [phone] | | | | | Physician's | | | | | | Pavilion, 1st floor | | | | | | [place], [place] | | | | | | [address] | | | | | | [phone] | | | +--------+ + + + [...] | + +--------+ + + + | 5-HIAA QUANT, URINE | Routin | 12/25/2013 | | Results for this | | | e | | | procedure are in the | | | | | | results section. | + +--------+ + + + documented in this encounter Results 5-HIAA QUANT, URINE (12/25/2013) + + + + + + | Component | Value | Ref Range | Performed | Pathologist | | | | | At | Signature | + + + + + + | 5-HIAA | 3Comment: 2100 ml | 0 - 15 mg/d | [facility] | | | URINE | volume, 0.99 gm Cr | | LAB | | + + + + + + + + | Specimen | + + | Urine - Urine | + + + + + + + | Performing | Address | City/State/Zipcode | Phone Number | | Organization | | | | + + + + + | [facility] | [address] | [place] | | | | [address] | [address] | | + + + + + | [facility] | [address] | [place], [place] | | | | [facility] | [address] | | + + + + + documented in this encounter Visit Diagnoses Not on filedocumented in this encounter"
--- OUTSIDE RECORDS SUMMARY | ~2019-09-14 | XMS | Encounter Summary ---
Demographics + + + | Address | [address] | | | [place] [address] | + + + | Home Phone | | + + + | Preferred Language | Unknown | + + + | Marital Status | | + + + | Bahai Affiliation | Unknown | + + + | Race | White | + + + | Ethnic Group | Not or | + + + Author + + + | Author | [facility] | + + + | Organization | [facility] | + + + | Address | Unknown | + + + | Phone | Unavailable | + + + Support + + +---------+ + | Name | Relationship | Address | Phone | + + +---------+ + | Arcadio Jordan | ECON | Unknown | | + + +---------+ + Care Team Providers + +------+ + | Care Regulatory Lead Name | Role | Phone | + [...] | | | | | Center at [facility] | [address] [place], | | | | | [address] | [place] [address] | | | | | [address] | [phone] | | | | | Physician's | | | | | | Pavilion, 1st floor | | | | | | [place], [place] | | | | | | [address] | | | | | | [phone] | | | +--------+ + + + [...]
--- OUTSIDE RECORDS SUMMARY | ~2019-09-14 | XMS | Encounter Summary ---
Demographics + + + | Address | [address] | | | [place] [address] | + + + | Home Phone | | + + + | Preferred Language | Unknown | + + + | Marital Status | | + + + | Rastafari Affiliation | Unknown | + + + | Race | White | + + + | Ethnic Group | Not or | + + + Author + + + | Author | [facility] | + + + | Organization | [facility] | + + + | Address | Unknown | + + + | Phone | Unavailable | + + + Support + + +---------+ + | Name | Relationship | Address | Phone | + + +---------+ + | Arcadio Jordan | ECON | Unknown | | + + +---------+ + Care Team Providers + +------+ + | Care Jig Borer Name | Role | Phone | + [...] ABDOMEN | Anatoliy Dowling | [address] | | | | | [address] | [facility], | | | | | IV CONTRAST | [place], [place] | 10th Floor | | | | | [place] [address] | [address] | [facility] [place] | | | | | & PELVIS W/O | Phone: | [address] | | | | | CONTRAST | [phone] | Phone: | | | | | | Fax: | [phone] | | | | | | [phone] | Fax: | | | | | | | [phone] | +--------+--------+ + + + + Encounter Details +--------+ + + + + | Date | Type | Department | Care Team | Description | +--------+ + + + + | 09/03/ | Hospital | Diagnostic Imaging | | | | 2013 | Encounter | Services at [facility] | | | | | | [address] | | | | | | [address] [facility] | | | | | | [address] | | | | | | [place], [place] | | | | | | [address] | | | | | | [phone] | | | +--------+ + + + [...]
--- OUTSIDE RECORDS SUMMARY | ~2019-09-14 | XMS | Encounter Summary ---
Demographics + + + | Address | [address] | | | [place] [address] | + + + | Home Phone | | + + + | Preferred Language | Unknown | + + + | Marital Status | | + + + | Buddhist Affiliation | Unknown | + + + | Race | White | + + + | Ethnic Group | Not or | + + + Author + + + | Author | [facility] | + + + | Organization | [facility] | + + + | Address | Unknown | + + + | Phone | Unavailable | + + + Support + + +---------+ + | Name | Relationship | Address | Phone | + + +---------+ + | Arcadio Jordan | ECON | Unknown | | + + +---------+ + Care Team Providers + +------+ + | Care Housecleaner Name | Role | Phone | + [...] | | | | | Center at [facility] | [address] [place], | | | | | [address] | [place] [address] | | | | | [address] | [phone] | | | | | Physician's | | | | | | Pavilion, 1st floor | | | | | | [place], [place] | | | | | | [address] | | | | | | [phone] | | | +--------+ + + + [...] | | | | [address] | [address] | | + + + + + | [facility] | [address] | [place], [place] | | | | [facility] | [address] | | + + + + + documented in this encounter Visit Diagnoses Not on filedocumented in this encounter"
--- OUTSIDE RECORDS SUMMARY | ~2019-09-14 | XMS | Encounter Summary ---
Demographics + + + | Address | [address] | | | [place] [address] | + + + | Home Phone | | + + + | Preferred Language | Unknown | + + + | Marital Status | | + + + | Yazidi Affiliation | Unknown | + + + | Race | White | + + + | Ethnic Group | Not or | + + + Author + + + | Author | [facility] | + + + | Organization | [facility] | + + + | Address | Unknown | + + + | Phone | Unavailable | + + + Support + + +---------+ + | Name | Relationship | Address | Phone | + + +---------+ + | Arcadio Jordan | ECON | Unknown | | + + +---------+ + Care Team Providers + +------+ + | Care Nursing Home Aide Name | Role | Phone | [...] ABDOMEN | Anatoliy Dowling | [address] | | | | | & [address] | [address] | [facility], | | | | | IV CONTRAST | [place], [place] | 10th Floor | | | | | [address] | [address] | [facility] [place] | | | | | & PELVIS W/O | Phone: | [address] | | | | | CONTRAST | [phone] | Phone: | | | | | | Fax: | [phone] | | | | | | [phone] | Fax: | | | | | | | [phone] | +--------+--------+ + + + + Encounter [...] at [facility] | [address] [place], | | | | | [address] | [place] [address] | | | | | [address] | [phone] | | | | | Physician's | | | | | | [place], [address] [place] [address] | | | | | | [place], [place] | | | | | | [address] | | | | | | [phone] | | | +--------+ + + + [...]
--- OUTSIDE RECORDS SUMMARY | ~2019-09-14 | XMS | Encounter Summary ---
Demographics + + + | Address | [address] | | | [place] [address] | + + + | Home Phone | | + + + | Preferred Language | Unknown | + + + | Marital Status | | + + + | Alevism Affiliation | Unknown | + + + [...] Team Providers + +------+ + | Care Certified Medical Records Coder Name | Role | Phone | + [...] | Center at [facility] | [address] [place], | | | | | [address] | [place] [address] | | | | | [address] | [phone] | | | | | Physician's | | | | | | Pavilion, 1st floor | | | | | | [place], [place] | | | | | | [address] | | | | | | [phone] | | | +--------+ + + + [...]
--- OUTSIDE RECORDS SUMMARY | ~2019-09-14 | XMS | Encounter Summary ---
Demographics + + + | Address | [address] | | | [place] [address] | + + + | Home Phone | | + + + | Preferred Language | Unknown | + + + | Marital Status | | + + + | Restorationist Affiliation | Unknown | + + + [...] Team Providers + +------+ + | Care Fuel System Maintenance Worker Name | Role | Phone | [...] | | | | | | [place], [address] [place] [address] | | | | | | [place], [place] | | | | | | [address] | | | | | | [phone] | | | +--------+------+ + + + [...] + | [facility] | [address] | [place] [address] | | | [place] | | | | + + + [...] + | [facility] | [address] | [place] [address] | | | [place] | | | [...] B: | | | | | | [employer] | | | | | | by [employer],[address] | | | | | | [place] | | | | | | [address] | | | | | | [phone].[employer]. | | | | | | Fei [...] [facility] | [address] | [place], [place] | | | UN[facility] INT[facility] | | [address] | | + + + + + [...] | | | LABORATORY | | | ANGOLAN | | | SERVICES, | | | [...] + + + | [facility] | [address] | [place] [address] | | | SERVICES, CORE | [address] | | | + + + + + documented in this encounter Visit Diagnoses + + | Diagnosis | + + | Adrenal nodule (HCC) Other specified disorders of adrenal glands | + + documented in this encounter"
--- OUTSIDE RECORDS SUMMARY | ~2019-09-14 | XMS | Encounter Summary ---
Demographics + + + | Address | [address] | | | [place] [address] | + + + | Home Phone [...] + + + | Author | [facility] | + + + | Organization | [facility] | + + + | Address | Unknown | + + + | Phone | Unavailable | + + + Support + + +---------+ + | Name | Relationship | Address | Phone | + + +---------+ + | Arcadio Jordan | ECON | Unknown | | + + +---------+ + Care Team Providers + +------+ + | Care Production Line Mechanic Name | Role | Phone | + +------+ + | Ronald Alvarez MD | PCP | | + +------+ + Encounter Details +--------+ + + + + | Date | Type | Department | Care Team | Description | +--------+ + + + + | 08/27/ | MyClot | Souleymane Goldman | Carter Campos MD | RE: Appt change | | 2013 | Encounter | [facility] | [address] | | | | | [facility] | [address] [place], | | | | | [address] | [place] [address] | | | | | [address] | [phone] | | | | | Physician's | | | | | | Pavilion, 1st floor | | | | | | [place], [place] | | | | | | [address] | | | | | | [phone] | | | +--------+ + + + [...]
--- OUTSIDE RECORDS SUMMARY | ~2019-09-14 | XMS | Clinical Summary ---
Demographics + + + | Address | [address] | | | [place] [address] | + + + | Home Phone | | + + + | Preferred Language | Unknown | + + + | Marital Status | | + + + | Yazidism Affiliation | Unknown | + + + | Race | White | + + + | Ethnic Group | Not or | + + + Author + + + | Author | [facility] | + + + | Organization | [facility] | + + + | Address | Unknown | + + + | Phone | Unavailable | + + + Support + + +---------+ + | Name | Relationship | Address | Phone | + + +---------+ + | Arcadio Jordan | ECON | Unknown | | + + +---------+ + Care Team Providers + +------+ + | Care Webbing Tacker Name | Role | Phone | + +------+ + | Ronald Alvarez MD | PCP | | + +------+ + Source Comments BOO is fully live on both EpicCare Ambulatory and EpicCare InPatient.[facility] Allergies + + + + + + [...] | x | 09-Pre | 8 | [address] | | | | | | sent | | [place], | | | | | | | | [place] | | | | | | | | [address] | | + +--------+ +--------+ + +------+ + +--------+ +--------+ + + | Guarantor Name | Accoun | Relation to | Date | Phone | Billing Address | | | t Type | Patient | of | | | | | | | | | | + +--------+ +--------+ + + | Neda Jordan | Person | Self | [birth year] | [address] | | | al/Fam | | 1966 | [phone] | [address] [place] | | | guero | | | 9 (Home) | [address] | | | | | | [phone] | | | | | | | 4 (Work) | | + +--------+ +--------+ + +
--- OUTSIDE RECORDS SUMMARY | ~2019-09-14 | XMS | Encounter Summary ---
Demographics + + + | Address | [address] | | | [place] [address] | + + + | Home Phone [...] + + + | Author | [facility] | + + + | Organization | [facility] | + + + | Address | Unknown | + + + | Phone | Unavailable | + + + Support + + +---------+ + | Name | Relationship | Address | Phone | + + +---------+ + | Arcadio Jordan | ECON | Unknown | | + + +---------+ + Care Team Providers + +------+ + | Care Cartographic Technician Name | Role | Phone | [...] | | | | | Center at [facility] | [address] [place], | | | | | [address] | [place] [address] | | | | | [address] | [phone] | | | | | Physician's | | | | | | Pavilion, 1st floor | | | | | | [place], [place] | | | | | | [address] | | | | | | [phone] | | | +--------+ + + + [...]
--- OUTSIDE RECORDS SUMMARY | ~2019-09-14 | XMS | Encounter Summary ---
Demographics + + + | Address | [address] | | | [place] [address] | + + + | Home Phone [...] Team Providers + +------+ + | Care Marine Tower Operator Name | Role | Phone | [...] | [facility] | [address] [place], | | | | | [address] | [place] [address] | | | | | [address] | [phone] | | | | | Physician's | | | | | | Pavilion, 1st floor | | | | | | [place], [place] | | | | | | [address] | | | | | | [phone] | | | +--------+ + + + [...]
--- OUTSIDE RECORDS SUMMARY | ~2019-09-14 | XMS | Encounter Summary ---
Demographics + + + | Address | [address] | | | [place] [address] | + + + | Home Phone | | + + + | Preferred Language | Unknown | + + + | Marital Status | | + + + | Latter-Day Affiliation | Unknown | + + + | Race | White | + + + | Ethnic Group | Not or | + + + Author + + + | Author | [facility] | + + + | Organization | [facility] | + + + | Address | Unknown | + + + | Phone | Unavailable | + + + Support + + +---------+ + | Name | Relationship | Address | Phone | + + +---------+ + | Arcadio Jordan | ECON | Unknown | | + + +---------+ + Care Team Providers + +------+ + | Care Inspector Assembly Name | Role | Phone | + +------+ + | Ronald Alvarez MD | PCP | | + +------+ + Encounter Details +--------+------+ + + + | Date | Type | Department | Care Team | Description | +--------+------+ + + + | 08/13/ | Lab | [facility] at [facility] | | Hypokalemia | | 2013 | | [address] | | | | | | Loop Physician's | | | | | | [place], [address] [place] [address] | | | | | | [place], [place] | | | | | | [address] | | | | | | [phone] | | | +--------+------+ + + + [...] + +--------+ + + + | POTASSIUM TOTAL, | Routin | 08/13/2013 | Hypokalemia | Results for this | | URINE | e | 10:48 AM | | procedure are in the | | | | PDT | | results section. | + +--------+ + + + | RENIN, PLASMA | Routin | 08/13/2013 | Hypokalemia | Results for this | | | e | 10:48 AM | | procedure are in the | | | | PDT | | results section. | + +--------+ + + + | VITAMIN D, | Routin | 08/13/2013 | Hypokalemia | Results for this | | 25-HYDROXY, SERUM | e | 10:48 AM | | procedure are in the | | | | PDT | | results section. | + +--------+ + + + | COMPLETE METABOLIC | Routin | 08/13/2013 | Hypokalemia | Results for this | | SET | e | 10:48 AM | | procedure are in the | | (NA,K,CL,CO2,BUN,CRE | | PDT | | results section. | | AT,GLUC,CA,AST,ALT,B | | | | | | KARINA TOTAL,ALK | | | | | | PHOS,ALB,PROT TOTAL) | | | | | + +--------+ + + + | PHOSPHORUS, PLASMA | Routin | 08/13/2013 | Hypokalemia | Results for this | | | e | 10:48 AM | | procedure are in the | | | | PDT | | results section. | + +--------+ + + + | PTH, SERUM | Routin | 08/13/2013 | Hypokalemia | Results for this | | | e | 10:48 AM | | procedure are in the | | | | PDT | | results section. | + +--------+ + + + | ALDOSTERONE, SERUM | Routin | 08/13/2013 | Hypokalemia | Results for this | | | e | 10:48 AM | | procedure are in the | | | | PDT | | results section. | + +--------+ + + + | TSH | Routin | 08/13/2013 | Hypokalemia | Results for this | | | e | 10:48 AM | | procedure are in the | | | | PDT | | results section. | + +--------+ + + + | OSMOLALITY, URINE | Routin | 08/13/2013 | Hypokalemia | Results for this | | SPOT | e | 10:48 AM | | procedure are in the | | | | PDT | | results section. | + +--------+ + + + | OSMOLALITY, PLASMA | Routin | 08/13/2013 | Hypokalemia | Results for this | | | e | 10:48 AM | | procedure are in the | | | | PDT | | results section. | + +--------+ + + + | MAGNESIUM, PLASMA | Routin | 08/13/2013 | Hypokalemia | Results for this | | | e | 10:48 AM | | procedure are in the | | | | PDT | | results section. | + +--------+ + + + documented in this encounter Results ALDOSTERONE, SERUM (08/13/2013 10:48 [...] Directory | | | | | | ([employer]).Performed | | | | | | by [facility] | | | | | | [facility],[address] | | | | | | [facility],[place] [address] | | | | | | [phone]. | | | | | | [facility], | | | | | | , [...] [facility] | [address] | [place], [place] | | | [address] | | [address] | | + + + + + [...] | | | | | | Supine: Solon (1-7 | | | | | | [...] by | | | | | | [facility],[address] | | | | | | [place], [place] | | | | | | [address] | | | | | | [phone].[facility]. | | | | | | Fei [...] [facility] | [address] | [place], [place] | | | [address] [facility] [place] | | [address] | | + + + + + [...] | + + + + + | [facility] | [address] | [place] [address] | | | [address] | [address] [...] | + + + + + | [facility] | [address] [facility] | [place] [address] | | | SERVICES, PATRIC | SHITAL [...] [facility] | [address] | [place] [address] | | | SERVICES, CORE | [address]ARK [...] | | | LABORATORY | | | ZAMBIAN | | | SERVICES, | | | [...] | + + + + + | [facility] | [address] | [place] [address] | | | SERVICES, CORE | [address] | | | + + + + + MAGNESIUM, PLASMA (08/13/2013 10:48 AM PDT) + +---------+ + + + | Component | Value | Ref Range | Performed | Pathologist | | | | | At | Signature | + +---------+ + + + | MAGNESIUM,P | 1.7 (L) | 1.8 - 2.5 mg/dL | [facility] | | | LASMA | | | [...] [facility] | [address] | [place] [address] | | | SERVICES, CORE | PARK [...] [facility] | [address] | [place] [address] | | | SERVICES, CORE | PARK [...] | + + + + + | [facility] | [address] | [place] [address] | | | SERVICES, SPECIAL | [address] | | | | IMM + [...] utilizing a similar TSH assay, and | SERVICES, CORE | | should be interpreted with caution. | | + + + + + + + + | Performing | Address | City/State/Zipcode | Phone Number | | Organization | | | | + + + + + | [facility] | [address] | [place] [address] | | | SERVICES, CORE | P[address] [...] + | [facility] | [address] | [place] [address] | | | [place] | | | | + + + + + documented in this encounter Visit Diagnoses + + | Diagnosis | + + | Hypokalemia Hypopotassemia | + + documented in this encounter"
--- OUTSIDE RECORDS SUMMARY | ~2019-09-14 | XMS | Encounter Summary ---
Demographics + + + | Address | [address] | | | [place] [address] | + + + | Home Phone | | + + + | Preferred Language | Unknown | + + + | Marital Status | | + + + | Adventism Affiliation | Unknown | + + + | Race | White | + + + | Ethnic Group | Not or | + + + Author + + + | Author | [facility] | + + + | Organization | [facility] | + + + | Address | Unknown | + + + | Phone | Unavailable | + + + Support + + +---------+ + | Name | Relationship | Address | Phone | + + +---------+ + | Arcadio Jordan | ECON | Unknown | | + + +---------+ + Care Team Providers + +------+ + | Care Sales Executive Name | Role | Phone | + [...] | | | | Center at [facility] | [address] [place], | | | | | [address] | [place] [address] | | | | | [address] | [phone] | | | | | Physician's | | | | | | Pavilion, 1st floor | | | | | | [place], [place] | | | | | | [address] | | | | | | [phone] | | | +--------+ + + + [...] [facility] LAB | [address] | [place], [place] | | | | Heartbeat | [address] | | + + + + + | [facility] | [address] | [place], [place] | | | | [address] | [address] | | + + + + + documented in this encounter Visit Diagnoses Not on filedocumented in this encounter"
--- OUTSIDE RECORDS SUMMARY | ~2019-09-14 | XMS | Encounter Summary ---
Demographics + + + | Address | [address] | | | [place] [address] | + + + | Home Phone [...] Team Providers + +------+ + | Care Waistline Joiner Lockstitch Name | Role | Phone | + [...] | | | | | Center at [facility] | [address] [place], | | | | | [address] | [place] [address] | | | | | [address] | [phone] | | | | | Physician's | | | | | | Pavilion, 1st floor | | | | | | [place], [place] | | | | | | [address] | | | | | | [phone] | | | +--------+ + + + [...]
--- OUTSIDE RECORDS SUMMARY | ~2019-09-14 | XMS | Clinical Summary ---
Demographics + + + | Address | [address] | | | [place] [address] | + + + | Home Phone | | + + + | Preferred Language | Unknown | + + + | Marital Status | | + + + | Sikhism Affiliation | Unknown | + + + | Race | Unknown | + + + | Ethnic Group | Unknown | + + + Author + + + | Author | [facility] | | | and [place] | + + + | Organization | [facility] | | | and [place] | + + + | Address | Unknown | + + + | Phone | Unavailable | + + + Support + + + + + | Name | Relationship | Address | Phone | + + + + + | Arcadio Jordan | ECON | [address] | | | | | [place] | | | | | [address] | | + + + + + Care Team Providers + +------+ + | Care Insurance Defense Attorney Name | Role | Phone | + +------+ + | Jarrett Can MD | PCP | | + +------+ + Allergies Not on File Medications Not on file Active Problems Not on file Family History + + +------+ + | Medical History | Relation | Name | Comments | + + +------+ + | No known problems | Daughter | | | + + +------+ + | Coronary artery | Mother | | Afib, Rt CHF | | disease | | | | + + +------+ + + +------+--------+ + | Relation | Name | Status | Comments | + +------+--------+ + | Daughter | | | | + +------+--------+ + | Daughter | | | | + +------+--------+ + | Mother | | | | + +------+--------+ + | Mother | | | | + +------+--------+ + Social History + +-------+ +--------+------+ | Tobacco Use | Types | Packs/Day | Years | Date | | | | | Used | | + +-------+ +--------+------+ | Current Every Day | | 0.5 | | | | Smoker | | | | | + +-------+ +--------+------+ + + | Comments: Pt states that she is ready to quit and has discussed a support system with | | her PCP | + + + + + | Sex Assigned at | Date Recorded | | | | + + + | Not on file | | + + + Last Filed Vital Signs + + + + + | Vital Sign | Reading | Time Taken | Comments | + + + + + | Blood Pressure | 120/82 | 11/14/2017 11:36 AM | | | | | PDT | | + + + + + | Pulse | 83 | 11/14/2017 11:36 AM | | | | | PDT [...] + + + + | Weight | 70.1 kg (154 lb 9.6 | 11/14/2017 11:36 AM | | | | oz) | PDT | | + + + + + | Height | 170.2 cm (5' 7") | 10/10/2017 3:40 PM | | | | | PDT | | + + + + + | Body Mass Index | 24.21 | 10/10/2017 3:40 PM | | | | | PDT | | + + + + + Plan of Treatment + + +-------+ + | Health Maintenance | Due Date | Last | Comments | | | | Done | | + + +-------+ + | Vaccine: | | | | | Pneumococcal 19-64 | 4 | | | | (1 of 1 - PPSV23) | | | | + + +-------+ + | Vaccine: | | | | | Dtap/Tdap/Td (1 - | 7 | | | | Tdap) | | | | + + +-------+ + | Cervical Cancer | | | | | Screening (Pap) | 8 | | | + + +-------+ + | Breast Cancer | | | | | Screening | 3 | | | + + +-------+ + | Colorectal Cancer | | | | | Screening | 8 | | | | (Colonoscopy) | | | | + + +-------+ + | Vaccine: Zoster (1 | | | | | of 2) | 8 | | | + + +-------+ + | Vaccine: Influenza | | | | | (#1) | 0 | | | + + +-------+ + Results Not on filefrom Last 3 Months
--- OUTSIDE RECORDS SUMMARY | ~2019-09-14 | XMS | Encounter Summary ---
Demographics + + + | Address | [address] | | | [place] [address] | + + + | Home Phone | | + + + | Preferred Language | Unknown | + + + | Marital Status | | + + + | Gnosticism Affiliation | Unknown | + + + | Race | White | + + + | Ethnic Group | Not or | + + + Author + + + | Author | [facility] | + + + | Organization | [facility] | + + + | Address | Unknown | + + + | Phone | Unavailable | + + + Support + + +---------+ + | Name | Relationship | Address | Phone | + + +---------+ + | Arcadio Jordan | ECON | Unknown | | + + +---------+ + Care Team Providers + +------+ + | Care Informatics Physician Name | Role | Phone | + [...] | | | | Center at [facility] | [address] [place], | | | | | [address] | [place] [address] | | | | | [address] | [phone] | | | | | Physician's | | | | | | Pavilion, 1st floor | | | | | | [place], [place] | | | | | | [address] | | | | | | [phone] | | | +--------+ + + + [...]
--- OUTSIDE RECORDS SUMMARY | ~2019-09-14 | XMS | Encounter Summary ---
Demographics + + + | Address | [address] | | | [place] [address] | + + + | Home Phone | | + + + | Preferred Language | Unknown | + + + | Marital Status | | + + + | Sabianism Affiliation | Unknown | + + + [...] Team Providers + +------+ + | Care Autism Tutor Name | Role | Phone | + [...] floor | | | | | | [address] | [place], [place] | | | | | | [address] | [address] | | | | | | [place], | Phone: | | | | | | [place] [address] | [phone] | | | | | | Phone: | Fax: | | | | | | [phone] | [phone] | | | | | | Fax: | | | | | | | [phone] | | +--------+--------+ + + + + [...] | | [address] | [place] [address] | | | | | [address] | [phone] | | | | | Physician's | | | | | | [address], 1st floor | | | | | | [place], [place] | | | | | | [address] | | | | | | [phone] | | | +--------+---------+ + + + [...] LIPID LAB | [address] | [place], [place] | | | | [address] | [address] | | + + + + + | [facility] | [address] | [place], [place] | | | | [facility] | [address] | | + + + + + [...] | TOTAL SERUM | | mcg/dL | [facility] | | | | | | [facility] | | + +---------+ + + + + + | Specimen | + + | Blood - Blood | + + + + + + + | Performing | Address | City/State/Zipcode | Phone Number | | Organization | | | | + + + + + | [facility] | [address] | [place] [address] | | | [place] | | | [...] + | [facility] | [address] | [place] [address] | | | [place] | | | | + + + [...] B: | | | | | | [email or web address] | | | | | | by [facility],[address] | | | | | | [facility],[place] | | | | | | [address] | | | | | | [phone].[employer]. | | | | | | com, [...] [facility] | [address] | [place], [place] | | | [address] | | [address] | | + + + + + [...] | | | LABORATORY | | | [place] | | | SERVICES, | | | [...] | + + + + + | [facility] | [address] | [place] [address] | | | SERVICES, CORE | [address] | | | + + + + + documented in this encounter Visit Diagnoses + + | Diagnosis | + + | Adrenal nodule (HCC) - Primary Other specified disorders of adrenal glands | + + documented in this encounter
--- OUTSIDE RECORDS SUMMARY | ~2019-09-14 | XMS | Encounter Summary ---
Demographics + + + | Address | [address] | | | [place] [address] | + + + | Home Phone | | + + + | Preferred Language | Unknown | + + + | Marital Status | | + + + | Restorationism Affiliation | Unknown | + + + [...] Team Providers + +------+ + | Care Desktop Publishing Operator Name | Role | Phone | [...] [address] | | | | | [facility] | [address] [place], | | | | | [address] | [place] [address] | | | | | [address] | [phone] | | | | | Physician's | | | | | | Pavilion, 1st floor | | | | | | [place], [place] | | | | | | [address] | | | | | | [phone] | | | +--------+ + + + [...]
--- OUTSIDE RECORDS SUMMARY | ~2019-09-14 | XMS | Encounter Summary ---
Demographics + + + | Address | [address] | | | [place] [address] | + + + | Home Phone | | + + + | Preferred Language | Unknown | + + + | Marital Status | | + + + | Hindu Affiliation | Unknown | + + + | Race | Unknown | + + + | Ethnic Group | Unknown | + + + Author + + + | Author | [facility] | | | and [place] | + + + | Organization | [facility] | | | and [place] | + + + | Address | Unknown | + + + | Phone | Unavailable | + + + Support + + + + + | Name | Relationship | Address | Phone | + + + + + | Arcadiobarbara Jordan | ECON | [address] | | | | | [place] | | | | | [address] | | + + + + + Care Team Providers + +------+ + | Care Certified Physician'S Assistant Name | Role | Phone | + +------+ + | Jarrett Can MD | PCP | | + +------+ + Encounter Details +--------+ + + + + | Date | Type | Department | Care Team | Description | +--------+ + + + + | 08/02/ | Orders Only | [facility] | Ashley Faulkner | | | 2017 | | [place] | MD Nic [address] | | | | | [address] | [place] [address] | | | | | AVE [place], [place] | [phone] | | | | | [address] | | | | | | | | | +--------+ + + + [...] | + +--------+ + + + | ECHO COMPLETE | Routin | 08/02/2017 | | Results for this | | | e | 2:06 PM | | procedure are in the | | | | PDT | | results section. | + +--------+ + + + documented in this encounter Results ECHO Complete (08/02/2017 2:06 PM PDT) + + | Specimen | + + | | + + + + + | Narrative | Performed At | + + + | Interpretation Summary 1. Normal LV structure with mild to | | | moderately reduced systolic function. 2. Normal RV structure and | | | systolic function. 3. Mild aortic regurgitation. No hemodynamically | | | significant valvular abnormalities. 4. Normal estimated PA systolic | | | pressure. Compared to the prior study dated 11/06/2009, LVEF has | | | decreased from 53% to 40%. Patient Height 170.2 cm Patient Weight | | | 74.8 kg Systolic Pressure 110 mmHg Diastolic Pressure 70 mmHg BSA | | | 1.86 m Left Ventricle The left ventricle is normal in size. | | | There is normal left ventricular wall thickness. Left ventricular | | | systolic function is mildly to moderately reduced. Modified Gar's | | | Biplane EF= 32%. The visual ejection fraction = 40%. The | | | transmitral spectral Doppler flow pattern is suggestive of impaired LV | | | relaxation. E/e' (Septal wall) = 9. E/e' (Basal Lateral wall) = 9. | | | Septal motion is consistent with conduction abnormality. Right | | | Ventricle The right ventricle is normal size. There is normal right | | | ventricular wall thickness. The right ventricular free wall thickness | | | is 3mm (normal is 5mm or less). The right ventricular systolic | | | function is normal. RV lateral S' is 12cm/sec (normal is >10cm/sec). | | | TAPSE is 2.1cm (abnormal is <1.6cm) Atria The left atrial size | | | is normal. Left atrial volume index is 22ml/m2. Right atrial size is | | | normal. Right atrial volume is 10cm2 (normal is up to 18cm2). The | | | interatrial septum is intact with no evidence for an atrial septal | | | defect. Mitral Valve The mitral valve leaflets are minimally | | | thickened. The mitral valve chordae are thickened and/or calcified. | | | There is no evidence of mitral valve prolapse. There is no mitral | | | valve stenosis. There is trace mitral regurgitation. Tricuspid | | | Valve The tricuspid valve is normal. There is no tricuspid valve | | | prolapse. There is no tricuspid stenosis. There is trace tricuspid | | | regurgitation. Systolic pulmonary artery pressure is 23 mmHg. | | | Aortic Valve The aortic valve is trileaflet. The aortic valve opens | | | well. There are mild fibrosclerotic changes of the aortic valve | | | leaflets. There is mild aortic regurgitation. Aortic insufficiency | | | pressure half-time is 483ms. No aortic stenosis. Pulmonic Valve | | | The pulmonic valve is not well seen, but is grossly normal. There is | | | no pulmonic valvular stenosis. PVAT=80msec There is no pulmonic | | | valvular regurgitation. Great Vessels The aortic root is normal | | | size. The Sinuses of Valsalva measure 3.4cm. Ascending aorta not | | | well visualized. The ascending aorta has a diameter of 3.4 cm. IVC | | | is 2.1cm or less in caliber and collapses greater than 50% with | | | inspiration/sniff maneuver. Pericardium/Pleural There is no | | | pericardial effusion. There is no pleural effusion. MMode 2D | | | Measurements & Calculations RVAW 0.32 cm RVDd 2.20 cm IVSd 0.66 cm | | | LVIDd 4.89 cm LVIDs 3.89 cm LVPWd 0.79 cm IVS/LVPW 0.83 FS 20.55 | | | % EDV(Teich) 112.42 ml ESV(Teich) 65.39 ml EF(Teich) 41.83 % | | | EDV(cubed) 117.12 ml ESV(cubed) 58.74 ml EF(cubed) 49.85 % LV | | | mass(C)d 115.03 grams LV mass(C)dI 61.73 grams/m SV(Teich) 47.03 ml | | | SI(Teich) 25.24 ml/m SV(cubed) 58.39 ml SI(cubed) 31.34 ml/m Ao | | | root diam 3.40 cm Ao root area 9.09 cm LA dimension 3.61 cm asc | | | Aorta Diam 3.39 cm LA/Ao 1.06 LVAd ap4 34.61 cm LVLd ap4 8.57 cm | | | EDV(MOD-sp4) 116.88 ml EDV(sp4-el) 118.54 ml LVAs ap4 28.69 cm LVLs | | | ap4 7.81 cm ESV(MOD-sp4) 86.83 ml ESV(sp4-el) 89.40 ml EF(MOD-sp4) | | | 25.71 % EF(sp4-el) 24.58 % LVAd ap2 30.03 cm LVLd ap2 8.27 cm | | | EDV(MOD-sp2) 93.30 ml EDV(sp2-el) 92.60 ml LVAs ap2 22.94 cm LVLs | | | ap2 7.66 cm ESV(MOD-sp2) 57.94 ml ESV(sp2-el) 58.28 ml EF(MOD-sp2) | | | 37.90 % EF(sp2-el) 37.06 % -3.74 EDV(MOD-bp) 106.32 ml -1.96 | | | ESV(MOD-bp) 72.22 ml EF(MOD-bp) 32.08 % SV(MOD-sp4) 30.05 ml | | | SI(MOD-sp4) 16.13 ml/m SV(MOD-sp2) 35.36 ml SI(MOD-sp2) 18.98 ml/m | | | SV(MOD-bp) 34.11 ml SI(MOD-bp) 18.30 ml/m SV(sp4-el) 29.14 ml | | | SI(sp4-el) 15.64 ml/m SV(sp2-el) 34.32 ml SI(sp2-el) 18.42 ml/m | | | Doppler Measurements & Calculations MV A dur 0.10 sec MV E max kehinde | | | 70.33 cm/sec MV A max kehinde 94.10 cm/sec MV E/A 0.75 LV IVRT 0.12 sec | | | MV dec time 0.04 sec Ao V2 max 116.73 cm/sec Ao max PG 5.45 mmHg | | | Ao max PG (full) 2.37 mmHg AI max kehinde 425.00 cm/sec AI max PG 72.28 | | | mmHg AI dec slope 280.33 cm/sec AI P1/2t 444.04 msec LV V1 max PG | | | 3.08 mmHg LV V1 max 87.79 cm/sec PA V2 max 95.02 cm/sec PA max PG | | | 3.61 mmHg TR max kehinde 222.61 cm/sec RVSP(TR) 22.82 mmHg RAP systole | | | 3.00 mmHg RPulV A dur 0.10 sec RPulV A max kehinde 26.19 cm/sec RPulV | | | S2 max kehinde 59.66 cm/sec RPulV D max kehinde 45.11 cm/sec RPulV S/D ratio | | | 1.32 InterpretingPhysician: Ashley Faulkner MD electronically | | | signed on 2017-08-02 13:06:17.89 | | + + + + + | Procedure Note | + + | Nehemias Figueroa Conversion - 09/12/2018 7:32 PM PDT | | Interpretation Summary | | 1. Normal LV structure with mild to moderately reduced systolic function. | | 2. Normal RV structure and systolic function. | | 3. Mild aortic regurgitation. No hemodynamically significant valvular | | abnormalities. | | 4. Normal estimated PA systolic pressure. | | | | Compared to the prior study dated 11/06/2009, LVEF has decreased from 53% to | | 40%. | | Patient Height 170.2 cm | | Patient Weight 74.8 kg | | Systolic Pressure 110 mmHg | | Diastolic Pressure 70 mmHg | | BSA 1.86 m | | | | Left Ventricle | | The left ventricle is normal in size. | | There is normal left ventricular wall thickness. | | Left ventricular systolic function is mildly to moderately reduced. | | Modified Gar's Biplane EF= 32%. | | The visual ejection fraction = 40%. | | The transmitral spectral Doppler flow pattern is suggestive of impaired LV | | relaxation. | | E/e' (Septal wall) = 9. | | E/e' (Basal Lateral wall) = 9. | | Septal motion is consistent with conduction abnormality. | | | | Right Ventricle | | The right ventricle is normal size. | | There is normal right ventricular wall thickness. | | The right ventricular free wall thickness is 3mm (normal is 5mm or less). | | The right ventricular systolic function is normal. | | RV lateral S' is 12cm/sec (normal is >10cm/sec). | | TAPSE is 2.1cm (abnormal is <1.6cm) | | | | Atria | | The left atrial size is normal. | | Left atrial volume index is 22ml/m2. | | Right atrial size is normal. | | Right atrial volume is 10cm2 (normal is up to 18cm2). | | The interatrial septum is intact with no evidence for an atrial septal defect. | | | | Mitral Valve | | The mitral valve leaflets are minimally thickened. | | The mitral valve chordae are thickened and/or calcified. | | There is no evidence of mitral valve prolapse. | | There is no mitral valve stenosis. | | There is trace mitral regurgitation. | | | | Tricuspid Valve | | The tricuspid valve is normal. | | There is no tricuspid valve prolapse. | | There is no tricuspid stenosis. | | There is trace tricuspid regurgitation. | | Systolic pulmonary artery pressure is 23 mmHg. | | | | Aortic Valve | | The aortic valve is trileaflet. | | The aortic valve opens well. | | There are mild fibrosclerotic changes of the aortic valve leaflets. | | There is mild aortic regurgitation. | | Aortic insufficiency pressure half-time is 483ms. | | No aortic stenosis. | | | | Pulmonic Valve | | The pulmonic valve is not well seen, but is grossly normal. | | There is no pulmonic valvular stenosis. | | PVAT=80msec | | There is no pulmonic valvular regurgitation. | | | | Great Vessels | | The aortic root is normal size. | | The Sinuses of Valsalva measure 3.4cm. | | Ascending aorta not well visualized. | | The ascending aorta has a diameter of 3.4 cm. | | IVC is 2.1cm or less in caliber and collapses greater than 50% with | | inspiration/sniff maneuver. | | | | Pericardium/Pleural | | There is no pericardial effusion. | | There is no pleural effusion. | | | | MMode 2D Measurements & Calculations | | RVAW 0.32 cm | | RVDd 2.20 cm | | IVSd 0.66 cm | | LVIDd 4.89 cm | | LVIDs 3.89 cm | | LVPWd 0.79 cm | | IVS/LVPW 0.83 | | FS 20.55 % | | EDV(Teich) 112.42 ml | | ESV(Teich) 65.39 ml | | EF(Teich) 41.83 % | | EDV(cubed) 117.12 ml | | ESV(cubed) 58.74 ml | | EF(cubed) 49.85 % | | LV mass(C)d 115.03 grams | | LV mass(C)dI 61.73 grams/m | | SV(Teich) 47.03 ml | | SI(Teich) 25.24 ml/m | | SV(cubed) 58.39 ml | | SI(cubed) 31.34 ml/m | | Ao root diam 3.40 cm | | Ao root area 9.09 cm | | LA dimension 3.61 cm | | asc Aorta Diam 3.39 cm | | LA/Ao 1.06 | | LVAd ap4 34.61 cm | | LVLd ap4 8.57 cm | | EDV(MOD-sp4) 116.88 ml | | EDV(sp4-el) 118.54 ml | | LVAs ap4 28.69 cm | | LVLs ap4 7.81 cm | | ESV(MOD-sp4) 86.83 ml | | ESV(sp4-el) 89.40 ml | | EF(MOD-sp4) 25.71 % | | EF(sp4-el) 24.58 % | | LVAd ap2 30.03 cm | | LVLd ap2 8.27 cm | | EDV(MOD-sp2) 93.30 ml | | EDV(sp2-el) 92.60 ml | | LVAs ap2 22.94 cm | | LVLs ap2 7.66 cm | | ESV(MOD-sp2) 57.94 ml | | ESV(sp2-el) 58.28 ml | | EF(MOD-sp2) 37.90 % | | EF(sp2-el) 37.06 % | | | | -3.74 | | EDV(MOD-bp) 106.32 ml | | | | -1.96 | | ESV(MOD-bp) 72.22 ml | | EF(MOD-bp) 32.08 % | | SV(MOD-sp4) 30.05 ml | | SI(MOD-sp4) 16.13 ml/m | | SV(MOD-sp2) 35.36 ml | | SI(MOD-sp2) 18.98 ml/m | | SV(MOD-bp) 34.11 ml | | SI(MOD-bp) 18.30 ml/m | | SV(sp4-el) 29.14 ml | | SI(sp4-el) 15.64 ml/m | | SV(sp2-el) 34.32 ml | | SI(sp2-el) 18.42 ml/m | | | | Doppler Measurements & Calculations | | MV A dur 0.10 sec | | MV E max kehinde 70.33 cm/sec | | MV A max kehinde 94.10 cm/sec | | MV E/A 0.75 | | LV IVRT 0.12 sec | | MV dec time 0.04 sec | | Ao V2 max 116.73 cm/sec | | Ao max PG 5.45 mmHg | | Ao max PG (full) 2.37 mmHg | | AI max kehinde 425.00 cm/sec | | AI max PG 72.28 mmHg | | AI dec slope 280.33 cm/sec | | AI P1/2t 444.04 msec | | LV V1 max PG 3.08 mmHg | | LV V1 max 87.79 cm/sec | | PA V2 max 95.02 cm/sec | | PA max PG 3.61 mmHg | | TR max kehinde 222.61 cm/sec | | RVSP(TR) 22.82 mmHg | | RAP systole 3.00 mmHg | | RPulV A dur 0.10 sec | | RPulV A max kehinde 26.19 cm/sec | | RPulV S2 max kehinde 59.66 cm/sec | | RPulV D max kehinde 45.11 cm/sec | | RPulV S/D ratio 1.32 | | InterpretingPhysician: Ashley Faulkner MD electronically signed on | | 2017-08-02 13:06:17.89 | + + documented in this encounter Visit Diagnoses Not on filedocumented in this encounter"
--- OUTSIDE RECORDS SUMMARY | ~2019-09-14 | XMS | Encounter Summary ---
Demographics + + + | Address | [address] | | | [place] [address] | + + + | Home Phone | | + + + | Preferred Language | Unknown | + + + | Marital Status | | + + + | Sikh Affiliation | Unknown | + + + | Race | White | + + + | Ethnic Group | Not or | + + + Author + + + | Author | [facility] | + + + | Organization | [facility] | + + + | Address | Unknown | + + + | Phone | Unavailable | + + + Support + + +---------+ + | Name | Relationship | Address | Phone | + + +---------+ + | Arcadio Jordan | ECON | Unknown | | + + +---------+ + Care Team Providers + +------+ + | Care Felt Hat Pouncing Operator Hand Name | Role | Phone | + [...] | [facility] | [address] [place], | | | | | [address] | [place] [address] | | | | | [address] | [phone] | | | | | [facility] | | | | | | [address] [place], | | | | | | [place] [address] | | | | | | [phone] | | | +--------+ + + + [...]
--- OUTSIDE RECORDS SUMMARY | ~2019-09-14 | XMS | Encounter Summary ---
Demographics + + + | Address | [address] | | | [place] [address] | + + + | Home Phone | | + + + | Preferred Language | Unknown | + + + | Marital Status | | + + + | Roman Catholic Affiliation | Unknown | + + [...] Team Providers + +------+ + | Care Industrial Sweeper Cleaner Name | Role | Phone | + [...] at [facility] | [address] [place], | | | | | [address] | [place] [address] | | | | | [address] | [phone] | | | | | Physician's | | | | | | Pavilion, 1st floor | | | | | | [place], [place] | | | | | | [address] | | | | | | [phone] | | | +--------+ + + + [...]
--- OUTSIDE RECORDS SUMMARY | ~2019-09-14 | XMS | Encounter Summary ---
Demographics + + + | Address | [address] | | | [place] [address] | + + + | Home Phone [...] Team Providers + +------+ + | Care Extractor Loader And Unloader Name | Role | Phone | + [...] | | | | | Center [facility] | [address] [place], | | | | | [address] | [place] [address] | | | | | [address] | [phone] | | | | | Physician's | | | | | | Pavilion, 1st floor | | | | | | [place], [place] | | | | | | [address] | | | | | | [phone] | | | +--------+ + + + [...]
--- OUTSIDE RECORDS SUMMARY | ~2019-09-14 | XMS | Encounter Summary ---
Demographics + + + | Address | [address] | | | [place] [address] | + + + | Home Phone [...] Team Providers + +------+ + | Care Elementary Classroom Teacher Name | Role | Phone | [...] Metabolism | paralysis | MD Trevor | [address] | | | | | | [place] | [address] | | | | | | INTERNAL | Physician's | | | | | | MEDICINE | Pavilion, | | | | | | [address] | 1st floor | | | | | | [facility] | [place], [place] | | | | | | [address] | [address] | | | | | | [place], | Phone: | | | | | | [place] [address] | [phone] | | | | | | Phone: | Fax: | | | | | | [phone] | [phone] | | | | | | Fax: | | | | | | | [phone] | | +--------+--------+ + + + + [...] | [facility] | [address] [place], | | | | | [address] | [place] [address] | | | | | [address] | [phone] | | | | | Physician's | | | | | | Pavilion, 1st floor | | | | | | [place], [place] | | | | | | [address] | | | | | | [phone] | | | +--------+---------+ + + + [...] to do. The experts recommend the [place] to Quitting. o Call the [place] Tobacco Quitline at: 8-465-QUIT NOW or visit the website www.[employer].org. A Quitline specialist will talk to you and help you decide the best way to quit. Th e Quitline may also be able to send you FREE medications. o For help online: Centers for Disease Control website at www.cdc.gov/tobacco or [facility] [place] website for live on-line assistance for smokers at www.smokefree.gov [place] to Quitting These four keys can help withdrawal and help you successfully quit. 1. Set a specific date to quit. 2. Take the stop smoking medication your doctor recommends. 3. Get help and support from friends, family, and your health professional. 4. Learn how to stay quit. [place] to Quitting Malik 1: SET A QUIT [...] out internet quit sites. o Call the [place] Tobacco Quitline at 7-872-Quit Now. Malik 4: LEARN HOW TO STAY [...] you are feeling withdrawal. Following the [place] to Quitting can help smokers make withdrawal [...] willing to stick with it! Developed by: [facility] Smoking Cessation Center [email or web address] 11/14/06 documented in this encounter Progress Notes Carter Campos MD - 08/13/2013 11:59 AM PDTI saw and evaluated the patient. I agree with the findings and plan of care as documented in the residents/fellows note. Carter Campos MD Endocrinology, Diabetes and Clinical Nutrition [address] [facility] [address] [facility] [address] Darshan Schaefer MD - 08/13 9:49 AM PDT Endocrine Clinic New Consult Referring Provider: Ronald Alvarez MD [facility] [address] [address] Reason for Visit: new patient eval for [...] counseling Darshan Silva MD Endocrinology Fellow, pgr [phone] This patient has been staffed with Dr. [...] | | | | | | Laboratories,[address] [facility] | | | | | | Aditya, [facility],[place] [address] | | | | | | [phone]. | | | | | | Fei [...] [facility] | [address] | [place], [place] | | | [facility] | | [address] | | + + + + + [...] | | | | | | Supine: [place] (1-7 | | | | | | [...] | | | | | Tammy Burgess, [facility],[place] | | | | | | [address] | | | | | | [phone]. | | | | | | Fei [...] [facility] | [address] | [place], [place] | | | [facility] | | [address] | | + + + + + [...] [facility] | [address] | [place] [address] | | | SERVICES, PATRIC | SHITAL [...] [facility] | [address] | [place] [address] | | | PATRIC [place] | SHITAL [...] [facility] | [address] | [place] [address] | | | SERVICES, CORE | PARK [...] the MDRD equation recommended by the | [facility] | | National Kidney Disease Education Program. [...] + + + + + | [facility] | [address] | [place] [address] | | | SERVICES, CORE | PARK [...] [facility] | [address] | [place] [address] | | | SERVICES, CORE | PARK [...] | + + + + + | [facility] | [address] | [place] [address] | | | SERVICES, CORE | SHITAL [...] | + + + + + | [facility] | [address] [facility] | [place] [address] | | | SERVICES, SPECIAL | SHITAL [...] + + + + + | [facility] | [address] [facility] | [place] [address] | | | PATRIC [address] | SHITAL [...] + | [facility] | [address] | [place] [address] | | | [place] | | | | + + + + + documented in this encounter Visit Diagnoses + + | Diagnosis | + + | Hypokalemia - Primary Hypopotassemia | + + documented in this encounter
--- OUTSIDE RECORDS SUMMARY | ~2019-09-14 | XMS | Encounter Summary ---
Demographics + + + | Address | [address] | | | [place] [address] | + + + | Home Phone [...] Team Providers + +------+ + | Care Golf Cart Repairer Name | Role | Phone | + +------+ + | Ronald Alvarez MD | PCP | | + +------+ + Encounter Details +--------+ + + + + | Date | Type | Department | Care Team | Description | +--------+ + + + + | 01/28/ | Abstract | Neurology at | Clinic, Neurology | | | 2013 | | [facility] | | | | | | Healing [address] | | | | | | Sheri Mailcode: CH8C | | | | | | [facility] | | | | | | and Healing, | | | | | | Building | | | | | | [place], [place] | | | | | | [address] | | | | | | [phone] | | | +--------+ + + + [...]
--- OUTSIDE RECORDS SUMMARY | ~2019-09-14 | XMS | Encounter Summary ---
Demographics + + + | Address | [address] | | | [place] [address] | + + + | Home Phone [...] + + + | Author | [facility] | + + + | Organization | [facility] | + + + | Address | Unknown | + + + | Phone | Unavailable | + + + Support + + +---------+ + | Name | Relationship | Address | Phone | + + +---------+ + | Arcadio Jordan | ECON | Unknown | | + + +---------+ + Care Team Providers + +------+ + | Care Net Lead Developer Name | Role | Phone | + [...] at [facility] | [address] [place], | | | | | [address] | [place] [address] | | | | | [address] | [phone] | | | | | Physician's | | | | | | Pavilion, 1st floor | | | | | | [place], [place] | | | | | | [address] | | | | | | [phone] | | | +--------+ + + + [...]
--- OUTSIDE RECORDS SUMMARY | ~2019-09-14 | XMS | Encounter Summary ---
Demographics + + + | Address | [address] | | | [place] [address] | + + + | Home Phone | | + + + | Preferred Language | Unknown | + + + | Marital Status | | + + + | Congregational Affiliation | Unknown | + + + | Race | White | + + + | Ethnic Group | Not or | + + + Author + + + | Author | [facility] | + + + | Organization | [facility] | + + + | Address | Unknown | + + + | Phone | Unavailable | + + + Support + + +---------+ + | Name | Relationship | Address | Phone | + + +---------+ + | Arcadio Jordan | ECON | Unknown | | + + +---------+ + Care Team Providers + +------+ + | Care Drum Barker Operator Name | Role | Phone | [...] [facility] | [address] [place], | | | | | [address] | [place] [address] | | | | | [address] | [phone] | | | | | Physician's | | | | | | Pavilion, 1st floor | | | | | | [place], [place] | | | | | | [address] | | | | | | [phone] | | | +--------+ + + + [...]
--- OUTSIDE RECORDS SUMMARY | ~2019-09-14 | XMS | Encounter Summary ---
Demographics + + + | Address | [address] | | | [place] [address] | + + + | Home Phone [...] Team Providers + +------+ + | Care Caving Guide Name | Role | Phone | + [...] | | | | | | [place], [address] [place] [address] | | | | | | [place], [place] | | | | | | [address] | | | | | | [phone] | | | +--------+------+ + + + [...] Directory | | | | | | (MarginLeft.Spyder Lynk).Performed | | | | | | by [facility] | | | | | | [facility],[address] | | | | | | [place] [address] | | | | | | [phone]. | | | | | | [facility], | | | | | | , [...] [facility] | [address] | [place], [place] | | | [facility] | | [address] | | + + + + + [...] | | | | | | Supine: Daisy (1-7 | | | | | | [...] by | | | | | | [employer],[address] | | | | | | [place], [place] | | | | | | [address] | | | | | | [phone].[facility]. | | | | | | Fei [...] [facility] | [address] | [place], [place] | | | [facility] | | [address] | | + + + + + [...] + + + + + | [facility] | [address] | [place] [address] | | | PATRIC WHITLEY | SHITAL [...] | + + + + + | [facility] | [address] | [place] [address] | | | SERVICES, PATRIC | SHITAL [...] [facility] | [address] | [place] [address] | | | SERVICES, CORE | PARK [...] | | | LABORATORY | | | [place] | | | SERVICES, | | | [...] + + + + + | [facility] [facility] | [address] | [place] [address] | | | SERVICES, CORE | SHITAL [...] [facility] | [address] | [place] [address] | | | SERVICES, CORE | PARK [...] [facility] | [address] | [place] [address] | | | SERVICES, CORE | PARK [...] + + + + + | [facility] [employer] [facility] | [address] | [place] [address] | | | SERVICES, SPECIAL | PARK [...] | + + + + + | [facility] | [address] | [place] [address] | | | SERVICES, CORE | PARK [...] + | [facility] | [address] | [place] [address] | | | [place] | | | | + + + + + documented in this encounter Visit Diagnoses + + | Diagnosis | + + | Hypokalemia Hypopotassemia | + + documented in this encounter"
[2019-09-14] MEDS ORDERED: VALACYCLOVIR1000 MG PO (10:02)
[2019-09-14] MEDS ORDERED: CITALOPRAM HBR20 MG PO (10:02)
[2019-09-14] MEDS ORDERED: ZYRTEC10 MG PO (10:02)
== END 2019-09-14 11:23 | disposition home or self-care (01) ==
LOC: ED 09:50
DX: S66.314A Strain of extensor muscle, fascia and tendon of right ring finger at wrist and hand level, initial encounter (principal); X58.XXXA Exposure to other specified factors, initial encounter; F17.200 Nicotine dependence, unspecified, uncomplicated; Z88.8 Allergy status to other drugs, medicaments and biological substances; Z79.899 Other long term (current) drug therapy
CPT/HCPCS: 73140; 99283-25

== ENCOUNTER 2023-11-09 09:51 | Day surgery (SDC) | payer OTHER ==
[~2023-11-09] VITALS: Ht 172.7 cm; Wt 66.4 kg
[~2023-11-09 09:51] MED LIST changes: +CITALOPRAM HBR20 MG PO; +IBLOOD GLUCOSE TEST STRIP 1 EA TEST VI PRN; +LACTATED RINGER'S 1,000 ML IV SCH; +LIDOCAINE HCL 1% 5 ML SDV INJ ONE; +MIDAZOLAM HCL 5 MG/5 ML VIAL IV PRN; +VALACYCLOVIR1000 MG PO; +ZYRTEC10 MG PO; +fentaNYL citrate 100 MCG/2 ML VIAL IV PRN
[2023-11-09 10:02] VITALS: BP 174/97
[2023-11-09] MEDS ORDERED: fentaNYL citrate 100 MCG/2 ML VIAL ONE (10:02)
[2023-11-09] MEDS ORDERED: MIDAZOLAM HCL 5 MG/5 ML VIAL ONE (10:02)
[2023-11-09 10:03] VITALS: BP 117/97
[2023-11-09] MEDS ORDERED: JARDIANCE10 MG PO (10:05)
--- NOTE | 2023-11-09 12:27 | NUR ---
11/09/23 Luz7 Dario Shau 1220: PT ARRIVED TO PACU VIA STRETCHER. PT DROWSY BUT AWAK AND RESPONDING TO VERBAL STIMULI. PT ON 3L NC. PT HAS NO PAIN OR NAUSE AT THIS TIME. 1226: PT TITRATED TO ROOM AIR AT THIS TIME.
[2023-11-09 12:46] VITALS: BP 144/88
--- NOTE | 2023-11-12 13:47 | OR ---
[facility] [address], [place] [address] Signed DATE OF OPERATION: 11/09/2023 SURGEON: Chavez Sanchez MD PREOPERATIVE DIAGNOSIS: Positive Cologuard test. POSTOPERATIVE DIAGNOSIS: Polyps x3 (sigmoid, left colon and hepatic flexure). PROCEDURE: Total colonoscopy to cecum with cold morcellation polypectomy x3. ANESTHESIA: Intravenous sedation; fentanyl 100 mcg and Versed 10 mg. INDICATION: This 58-year-old white woman is a patient of Dr. Shirley Hyatt and underwent Cologuard screening test recently. It is found to be positive. She has no current symptoms of bleeding, diarrhea, or constipation and no family history of colon cancer. She is admitted at this time to undergo colonoscopy on the basis of her positive Cologuard test. She understands the risk of bleeding, infection, and perforation and wished to proceed. FINDINGS: The prep was excellent. Complete colonoscopy was undertaken to the cecum with full intubation of the cecum. The appendiceal orifice and the ileocecal valve were normal. There were three small polyps, one at the hepatic flexure, one in the sigmoid and the other in the left colon. All were excised completely. PROCEDURE IN DETAIL: The patient was brought to the endoscopy suite and placed in the lateral decubitus position, given intravenous sedation to the point of slurred speech and nystagmus. Digital rectal examination was normal. An Olympus video colonoscope was passed in the rectum and manipulated throughout the colon ultimately intubating the cecum itself. The ileocecal valve and appendiceal orifice were normal. The scope was withdrawn from that point and examination undertaken showing no sign of abnormality into the hepatic flexure where a small polyp was noted, this was excised with cold morcellation technique. Further withdrawal of the scope Electronically Signed By: CHAVEZ SANCHEZ MD 11/12/23 1347 PATIENT NAME: KRISTY GUILLEN OPERATIVE REPORT DATE OF : 69 REPORT #: [id number] PHYSICIAN: CHAVEZ SANCHEZ MD PCP: SHIRLEY HYATT MD REPORT IS CONFIDENTIAL AND NOT TO BE RELEASED WITHOUT AUTHORIZATION [facility] [address], [place] [address] Signed showed no other abnormality into the sigmoid until the left colon in the midportion where a small polyp was noted, this was excised with cold morcellation technique. Further withdrawal showed another very small polyp of the sigmoid, which was also excised with cold morcellation technique. Further withdrawal allowed retroflexed view showing no sign of abnormality. Scope was removed and the patient was taken to the recovery room in good condition. CONCLUDING DIAGNOSIS: Small polyps x3. PLAN: Recommend repeat colonoscopy in 5 years, sooner if clinically indicated. She will return to the ongoing care of Dr. Shirley Hyatt. MD ZENOBIA Wetzel/ALLYSONL /[id number] cc: Shirley Hyatt MD Copies: ~ Electronically Signed By: CHAVEZ SANCHEZ MD 11/12/23 1347 PATIENT NAME: KRISTY GUILLEN KARINA OPERATIVE REPORT DATE OF : 69 REPORT #: [id number] PHYSICIAN: CHAVEZ SANCHEZ MD PCP: SHIRLEY HYATT MD REPORT IS CONFIDENTIAL AND NOT TO BE RELEASED WITHOUT AUTHORIZATION
--- NOTE | 2023-11-14 16:57 | PATH ---
[facility] [address] [facility] [place], [place] [address] Signed SPECIMEN(S): A HEPATIC FLEXURE COLON POLYP SPECIMEN(S): B DESCENDING COLON POLYP SPECIMEN(S): C SIGMOID POLYP SPECIMEN SOURCE: A. HEPATIC FLEXURE COLON POLYP B. DESCENDING COLON POLYP C. SIGMOID POLYP CLINICAL HISTORY: Positive Cologuard. FINAL PATHOLOGIC DIAGNOSIS: A. Hepatic flexure colon polyp: - Tubular adenoma (three fragments). B. Descending colon polyp: - Hyperplastic polyp (one fragment). C. Sigmoid polyp: - Tubular adenoma (one fragment). JVR:kristin MICROSCOPIC EXAMINATION: Histologic sections of all submitted blocks are examined by light microscopy. These findings, together with the gross examination, support the pathologic diagnosis. GROSS DESCRIPTION: A. The specimen, labeled and designated "Jordan, hepatic flexure colon polyp," is received in formalin and consists of five chi soft tissue fragments, ranging from 0.2-0.3 cm. Entirely submitted in (A1). B. The specimen, labeled and designated "Jordan, descending colon polyp," is received in formalin and consists of one chi soft tissue fragment, 0.4 cm. Entirely submitted in (B1). C. The specimen, labeled and designated "Jordan, sigmoid polyp," is received in formalin and consists of one chi soft tissue fragment, 0.4 cm. Entirely submitted in (C1). VB (under the direct supervision of a pathologist) The Gross Description was prepared using a voice recognition system. The report was reviewed for accuracy; however, sound-alike word errors, addition and/or deletions may occur. If there is any PATIENT NAME: KRISTY JORDAN PATHOLOGY DATE OF : 69 REPORT #: [id number] PHYSICIAN: LIA MATTHEWS PCP: ROLA ANDERSON MD REPORT IS CONFIDENTIAL AND NOT TO BE RELEASED WITHOUT AUTHORIZATION [facility] [address] [facility] [place], [place] [address] Signed question about this report, please contact Client Services. PERFORMING LABORATORY: Technical component was performed by [facility], [address] [place] [id number] (CLIA# [id number]). Professional interpretation was performed by [facility], [address] [place] [id number] (CLIA#: [id number]). Diagnostician: Erasmo Prieto MD Pathologist Electronically Signed 11/14/2023 Copies: ~ PATIENT NAME: KRISTY JORDAN PATHOLOGY DATE OF : 69 REPORT #: [id number] PHYSICIAN: LIA MATTHEWS PCP: ROLA ANDERSON MD REPORT IS CONFIDENTIAL AND NOT TO BE RELEASED WITHOUT AUTHORIZATION
== END 2023-11-09 12:51 | disposition home or self-care (01) ==
LOC: OPS 09:51 → DS 09:52 → OPS 11:30 → DS 11:30 → OPS 12:51
PROVIDERS: ATTEND Surgery
PROC: 0DBL8ZZ Excision of Transverse Colon, Via Natural or Artificial Opening Endoscopic (ICD-10-PCS; 2023-11-09)
PROC: 0DBN8ZZ Excision of Sigmoid Colon, Via Natural or Artificial Opening Endoscopic (ICD-10-PCS; 2023-11-09)
PROC: 0DBG8ZZ Excision of Left Large Intestine, Via Natural or Artificial Opening Endoscopic (ICD-10-PCS; principal; 2023-11-09 11:30)
DX: Z12.11 Encounter for screening for malignant neoplasm of colon (principal); D12.3 Benign neoplasm of transverse colon; D12.5 Benign neoplasm of sigmoid colon; K63.5 Polyp of colon; F17.210 Nicotine dependence, cigarettes, uncomplicated; I11.0 Hypertensive heart disease with heart failure; I50.9 Heart failure, unspecified; Z79.84 Long term (current) use of oral hypoglycemic drugs
CPT/HCPCS: 99153; G0500; J2250; J3010; J7121